=== PATIENT | female | born 1995 | race African-American/Black ===

== ENCOUNTER 2024-01-29 11:32 | Inpatient (IN) ==
[2024-01-29] MEDS ORDERED: OXYTOCIN 30 UNITS/NSS 30 UNITS/500 ML BAG IV PRN (11:37)
[2024-01-29] MEDS ORDERED: LIDOCAINE 1% LOCAL 20 ML VIAL INFIL PRN (11:37)
--- NOTE | 2024-01-29 11:43 | History & Physical Report ---
Date of Service January 29, 2024 Assessment & Plan (1) GDM (gestational diabetes mellitus), class A1: Plan: induction of labor planned Admission and Anticipated Discharge Date Admission Date: January 29, 2024 History of Present Illness Chief Complaint: induction of labor Primary Care Provider: GABRIELA PCP 28 F P0000 at 39 weeks admitted to L&D at [facility] for IOL for GDM diet controlled. GBS is negative. Allergies Allergy/AdvReac Type Severity Reaction Status Date / Time No Known Allergies Allergy Verified 01/29/24 11:50 Home Medications Medication Instructions Recorded Confirmed Type vit no.95-ferrous 1 tab PO DAILY 07/08/23 01/29/24 History fumarate 28 mg-folic acid 800 mcg tablet () Patient History Medical History (Updated 01/29/24 @ 11:48 by Ora Hernandez RN) Gestational diabetes mellitus diet controlled No known health problems Surgical History No history of previous surgery Social History (Updated 01/29/24 @ 11:50 by Ora Hernandez RN) Smoking Status: Never smoker Second Hand Exposure: No; Hx Alcohol Use: No Hx Substance Use: No Preferred Language: Citizen Of [place] 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 Beliefs That Will Affect Care: None marital status: marital status details: Atr Germain Current Living Situation: Family Current Living Situation Comment: lives with current occupational status: employed current occupation: [employer] Feels Safe at Home: Yes Safety Concerns: Feels Safe At This Time Assistive Devices: None 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 Review of Systems All systems reviewed & are unremarkable except as noted in HPI & below Physical Exam Constitutional: WD/WN, vitals as above Eyes: PERRL, conjunctivae normal, anicteric sclerae Respiratory: normal respiratory effort, lungs clear to auscultation Cardiovascular: Rate/Rhythm: regular rate and regular rhythm Gastrointestinal (Abdomen): Inspection/Auscultation: abdomen normal to inspection Musculoskeletal: Extremities: extremities normal to inspection Skin: no rashes, warm and dry Neurologic: patellar DTR's 2+ bilat, sensation intact Psychiatric: A+Ox3, euthymic affect Genitourinary: no vaginal lesions, no adnexal mass normal external appearance Manual OB Exam: + cervical dilation fingertip, + cervical effacement 30% and + station high OB Exam Monitor Tracing: + external FHT monitor used, + external uterine monitor used, + category I and + normal FHT variability Lymphatic: EFW 8 lbs. Cervidil placed vaginally Code Status & VTE Plan VTE Prophylaxis Plan VTE Prophylaxis will be ordered: No Monitoring External Monitor Cat 1
[2024-01-29 12:12] LABS: Hematocrit (blood only) 42.2 % (37.0-47.0); Hemoglobin 14.6 g/dl (12.0-16.0); Mean Corpuscular Hemoglobin 29.3 pg (25.0-34.0); Mean Corpuscular Hgb Conc 34.6 g/dL (32.0-36.0); Mean Corpuscular Volume 84.7 fL (80.0-100.0); Mean Platelet Volume 10.2 fL (9.4-12.4); Platelet Count 293 K/uL (130-400); RDW Coefficient of Variation 15.6 % (11.5-14.5); RDW Standard Deviation 48.1 fL (36.4-46.3); Red Blood Count 4.98 M/uL (4.20-5.40); White Blood Count 7.13 K/ul (4.8-10.8)
[2024-01-29 12:24] LABS: Albumin Globulin Ratio 1.2 (0.9-2); Albumin Level 3.7 gm/dl (3.4-5.0); BUN Creatinine Ratio 17.7 (10-20); Bilirubin Direct 0.1 mg/dl (0-0.2); Bilirubin,Total 0.2 mg/dl (0.2-1.0); Calcium 9.5 mg/dl (8.6-10.3); Creatinine Clr Calc Pharmacy 158.6 ml/min; Globulin 3.2 gm/dl (2.5-4.0); Potassium 3.9 mmol/L (3.5-5.1); Total Protein 6.9 gm/dl (6.0-8.3); Uric Acid 5.4 mg/dl (2.6-7.2)
[2024-01-29 12:24] LABS: Creatinine Urine Random 55.3 mg/dl; Protein Creatinine Ratio Urine 0.8 (0-0.2); Total Protein Urine Random 42.2 mg/dl (0-11.9)
[2024-01-29] MEDS: DINOPROSTONE 10 MG INSERT PV ONE (13:12)
--- OUTSIDE RECORDS SUMMARY | 2024-01-29 19:12 | External Medical Summary | Summary of Care ---
Author Name Unknown Organization [facility] Address [address] [place] [address] Phone [phone] Care Team Providers Care Global Safety Officer Name Role Phone Unavailable Primary Care Provider Unavailabl e Reason for Visit * Reason Comments DSMT Follow-Up Encounter Details Date Type Department Care Team (Latest Contact Info) Description 01/17/2024 9:30 AM EDT Nutrition Services Nutrition, [facility] [address] [facility] [place] [id number] Yesy Rogel RDN [address] [facility] [place] [address] Diet controlled gestational diabetes mellitus (GDM) in third trimester*; Supervision of high risk , antepartum Allergies No known active allergiesdocumented as of this encounter (statuses as of 01/17/2024) Medications Medication Sig Dispensed Refills Start Date End Date Status 6.75-0.2 MG Oral Tablet Take by mouth. Active SharethroughTouch Verio Flex System w/Device KitIndications:Diet controlled gestational diabetes mellitus (GDM) in third trimester Use to test blood sugars 4 times daily (fasting, 1 hour after breakfast, lunch, and dinner) 1 Kit 11/15/2023 Active OneTouch Delica Lancets 30GIndications:Diet controlled gestational diabetes mellitus (GDM) in third trimester Use to test blood sugars 4 times daily (fasting, 1 hour after breakfast, lunch, and dinner) 200 Each 6 11/15/2023 Active OneTouch Verio In Vitro Strip (Glucose Blood)Indications:Diet controlled gestational diabetes mellitus (GDM) in third trimester Use to test blood sugars 4 times daily (fasting, 1 hour after breakfast, lunch, and dinner) 125 Strip 6 01/10/2024 Active documented as of this encounter (statuses as of 01/17/2024) Active Problems Problem Noted Date Diagnosed Date Diet controlled gestational diabetes mellitus (GDM) in third trimester 11/14/2023 Overview: Diagnosed at 28 weeks Nutrition consult complete Lab Results Component Value Date/Time 50-G GESTATIONAL GLUCOSE, 1 HOUR - [facility] 165 (H) 11/08/2023 11:36 AM 100-G GESTATIONAL GLUCOSE, 1 HOUR - [facility] 171 11/14/2023 10:20 AM 100-G GESTATIONAL GLUCOSE, 2 HOUR - [facility] 156 (H) 11/14/2023 11:31 AM 100-G GESTATIONAL GLUCOSE, 3 HOUR - [facility] 114 11/14/2023 12:25 PM 100-G GESTATIONAL GLUCOSE, FASTING - [facility] 99 (H) 11/14/2023 09:16 AM 11/29/23: MFM ADAPT consult complete. Enrolled in Current Health. Instructions provided to report blood sugars each week for MFM review 12/06/[id number]-LWB-wmmmnmag 3 fasting blood sugars (1 elevated) and 4 post prandial values (1 elevated). Messaged to be consistent with testing four times daily and reporting. Review again next week 12/13/[id number]-pxbmfj 12/20/23: RPM reviewed; Stable 12/27/[id number]-VWA-gfbafn. Multiple missed readings. Sent message asking her to be consistent with testing and reporting 01/03/20241631-XEE-usrevk 01/10/[id number]-BSR-hzkmaruki via raquel and messaging. Stable. Last Assessment & Plan: Working with ADAPT. Please encourage Kaleigh to send sugars. Supervision of high risk , antepartum 0 07/19/2023 Estimated Date of Delivery Comme nts Yes 02/01/2024 Based on last me nstrual period of 04/27/2023 documented as of this encounter (statuses as of 01/17/2024) Immunizations Name Administration Dates Next Due TDAP, Age 7 and older, IM (Adacel) 11/08/2023 documented as of this encounter Social History Tobacco Use Types Packs/Day Years Used Date Smoking Tobacco: Never Smokeless Tobacco: Never Alcohol Use Standard Drinks/Week Comments Never 0 (1 standard drink = 0.6 oz pur e alcohol) Denver Depression Scale Answer Date Recorded [place] Depression Scale Total 6 07/19/2023 The thought of harming myself has occurred to me . Never 07/19/2023 Utilities Answer Date Recorded Do you have trouble paying y our heating, water, or electric bill? (Adult - for ages 18 years and over) Not on file 09/05/2023 Is your family able to pay t he heat, water, or electric bill? (Household - for ages 0-17 years) Not on file 09/05/2023 Does your family have access to good internet? (Household - for ages 0-17 years) Not on file 09/05/2023 Social Connections Answer Date Recorded How often do you feel lonely or isolated from those around you? (Adult - for ages 18 years and over) Not on file 09/05/2023 Estimated Date of Delivery Comme nts Yes 02/01/2024 Based on last me nstrual period of 04/27/2023 Sex and Gender Information Value Date Recorded Sex Assigned at Not on file Gender Identity Not on file Sexual Orientation Not on file Job Start Date Occupation Industry Not on file Not on file Not on file documented as of this encounter Last Filed Vital Signs Vital Sign Reading Time Taken Comments Blood Pressure - - Pulse - - Temperature - - Respiratory Rate - - Oxygen Saturation - - Inhaled Oxygen Concentration - - Weight 94.3 kg (208 lb) 01/17/2024 9:50 AM EDT p er pt report Height 170.2 cm (5' 7") 01/17/2024 9:50 AM EDT Body Mass Index 32.58 01/17/2024 9:50 AM EDT documented in this encounter Patient Instructions * Patient Instructions* Yesy Rogel RDN - 01/17/2024 9:52 AM EDT Participant will continue with present meal regimen including an evening snack. Try to consume Congolese yogurt after checking fasting glucose level, ~ 7-7:30 AM to follow 10-hour rule between evening snack and breakfast the next morning. documented in this encounter Progress Notes * Yesy Rogel, CASSIDYN - 01/17/2024 9:33 AM EDT DIABETES SELF-MANAGEMENT TRAINING/FOLLOW UP NOTE Name: Kaleigh Chacon Date: 01/17/2024 Participant was seen face to face in the clinic. Last order of DIABETES MANAGEMENT EDUCATION (ADA) REFERRAL was found on 11/15/2023 from Telephone on11/14/2023 No order of CLINICAL NUTRITION AND DIABETES EDUCATION ANNUAL RENEWAL is found. No order of PEDIATRIC DIABETES MANAGEMENT EDUCATION (ADA) REFERRAL OP is found. ADA referral in place? Yes Participant scheduled for 1:1 training due to lack of classes scheduled within 2 months of appointment. What diabetes concerns and/or barriers to care would you like to discuss in your appointment: complains of sore fingers and wants to know how long she should continue checking Topics from last visit to attempt to cover today: none Was behavior objective from last visit met at least 80% of the time: Nutrition: Yes Diabetes Medications: None Monitoring blood glucose, interpreting and using results Fasting 85, 87 when getting up early 91, 95 After breakfast 103, 115 After lunch 130, 120+ After dinner 79, 115, 107, 106 Self-Monitoring Blood Glucose Source of Information: Participant verbally reviewed from memory Frequency of tests: 4 times daily Fasting 85, 87 when getting up early 91, 95 After breakfast 103, 115 After lunch 130, 120+ After dinner 79, 115, 107, 106 Hypoglycemia?: No Diet: Before breakfast: 7:30- 8 AM Congolese yogurt Breakfast: 10 AM miranda, scrambled egg with vegetables sometimes, tea with milk Snacks: Congolese yogurt Lunch: 3:30 PM yam, spinach stew or rice with vegetables and boiled egg and chicken, water Snacks: high-protein biscuit or Congolese yogurt Dinner: 8-10 PM peanut butter soup with fufu (dough), or fufu with chicken soup with vegetables-onions, peppers, tomatoes, water Snacks: none Drinks: water-plenty per participant and Restaurant meals: rare Alcohol: None Tobacco Use: No Weight management review: Wt Readings from Last 6 Encounters: 01/17/24 94.3 kg (208 lb) 01/10/24 93.9 kg (207 lb) 12/27/23 92.5 kg (204 lb) 12/13/23 92.8 kg (204 lb 9.6 oz) 11/24/23 92.1 kg (203 lb 1.6 oz) 11/23/23 93 kg (205 lb) Weight changes since last visit: increased 5 lbs since last visit (11/24/2023) Physical Activity: Active at work-lifting, walking. Participant states she will stop working tomorrow. ADA STANDARDS OF CARE/BUNDLE MEASURES Diabetes Bundle / Standards of Care: Gestational Diabetes Participant Therapy Management Plan: Hypertension: BP Readings from Last 3 Encounters: 01/17/24 120/72 01/10/24 132/82 12/27/23 128/78 Gestational Diabetes Participant, being monitored by LOG CUTTER. Dyslipidemia: No results found for: "LDL" No components found for: "[id number]" Gestational Diabetes Mellitus Participant Kidney function review: Lab Results Component Value Date/Time ESTIMATED GLOMERULAR FILTRATION RATE - WILFREDO >90 01/03/2023 08:45 AM No results found for: "ALBUMIN / CREATININE RATIO", "ALBUMIN / CREATININE RATIO, URINE - [facility]" No results found for: "PROTEIN/ CREATININE RATIO", "PROTEIN/ CREATININE RATIO, URINE - [facility]" Gestational Diabetes Mellitus Participant DSMT/Diabetes MNT Diagnosis: Inconsistent carbohydrate intake related to lack of evening snack most days as evidenced by dietaryrecall DSMT Follow-up Assessment of Content Areas: Choose the answer that represents the participant's competency in ONLY topics assessed from previous visit and addressed today. Areas taught today must correlate with intervention. If content area not assessed and/or intervened today, it will be deferred to future session. Incorporating nutrition management into lifestyle: Needs review (2) Incorporating physical activity into lifestyle: Needs review (2) Monitoring blood glucose, interpreting and using results: Comprehends zarco points (3) Prevention, detection, and treatment of chronic complications: Needs review (2) DSMT/ Diabetes MNT intervention: Nutrition: Reminded participant of need for eating consistent carb's throughout the day . Reminded her of need for following 8-10 hour rule between evening snack and breakfast the next day. Encouraged her to push back pre-breakfast snack a little and aim for evening meal no earlier than 9 PM. She notes she has been monitoring portion sizes of high-carb foods and eating small portions of fufu (dough) and eating mostly protein-based soup at meals. Physical Activity: Reminded participant of benefit of activity on glucose levels, especially post prandial levels. Monitoring: Participant asking how much longer she has to check glucose levels. Encouraged her to continue until she delivers. She notes some pain in her fingers with checking. Encouraged her to use the side of her fingers and rotate fingers when checking; states she has been following these strategies. She has been forwarding her results to [facility]. States she notes that her glucose levels are higher when working due to being busy and experiencing stress. She admits to occasionally missing after lunch glucose check. Reviewed recommendations for after meal glucose levels, 1 hour and 2 hours. Suggested that if she misses her 1 hour glucose check, she can do a 2 hour check. Chronic Complications: Reminded participant of need for recommendations to ensure the health of abeba. Encouragement provided. Participant Selected Behavioral Objective: Nutrition: To improve blood glucose control I will continue with present meal regimen including an evening snack. Try to consume Congolese yogurt after checking fasting glucose level, ~ 7-7:30 AM to follow 10-hour rule between evening snack and breakfast the next morning. Recommended Medication Changes: No changes. Education materials given to participant/caregiver and reviewed during today's visit: None given today Diabetes Self-Management Support: Apps/Smart Phone Technology: Current Health Possible Future Topics: Content areas that were not assessed in prior visits: All content areas have been assessed. Time Spent With Patient: Time in: 9:32 AM Time out: 9:53 AM Billing: MNT: 15 Minutes (8-22) Plan for Return: Participant declined another follow-up visit. Encouraged pt to contact me via My Gif any questions or concerns arise. All [facility] providers within the system are able to see [place] [employer] education and outcomes within the participant's electronic medical record. Yesy Rogel RDN, NUTRITION SERVICES [facility] Diabetes Care and Ship'S Master documented in this encounter Plan of Treatment Upcoming Encounters Date Type Department Care Team (Late st Contact Info) Description 01/25/2024 10:30 AM EST Office Visit Gynecology/Obstetrics [facility] [address] [place] [phone] Casandra Rogers PA-Manuela [address] [place] [address] [place] [phone] Health Maintenance Due Date Last Done Comments Depression Screening 2006 Hepatitis B Vaccine (1 of 3 - 19+ 3-dose series) 2013 COVID-19 Vaccine (1 - 2023-2 5 season) 2023 Influenza Vaccine (FLU shot) (#1) 2023 Pap Smear 07/18/2026 07/19/2023 DTap/Tdap Vaccines (2 - Td o r Tdap) 11/07/2033 11/08/2023 HPV (Gardasil) Vaccine Aged Out No lo nger eligible based on patient's age to complete this topic MENINGOCOCCAL (MENACTRA/MENVEO) Aged Out No longer eligible based on patient's age to complete this topic Pneumococcal Vaccine: Pediat rics (0 to 5 Years) and At-Risk Patients (6 to 64 Years) Aged Out No longer eligi ble based on patient's age to complete this topic documented as of this encounter Medical Devices Not on filedocumented as of this encounter Visit Diagnoses Diagnosis Diet controlled gestational diabetes mellitus (GDM) in third trimester- Primary Supervision of high risk , antepartum documented in this encounter
--- OUTSIDE RECORDS SUMMARY | 2024-01-29 19:12 | External Medical Summary | Summary of Care ---
Author Name Unknown Organization [facility] Address [address] [place] [address] Phone [phone] Care Team Providers Care Director Of Sports Performance Name Role Phone Unavailable Primary Care Provider Unavailabl e Encounter Details Date Type Department Care Team (Late st Contact Info) Description 01/26/2024 Telephone It Teacher Obstetrics Maternal Medicine, [place] [address], [place] [phone] [place], Nurse It Teacher [facility] [address] [place] [phone] Allergies No known active allergiesdocumented as of this encounter (statuses as of 01/26/2024) Medications 6.75-0.2 MG Oral Tablet Take by mouth. Active OneTouch Verio Flex System w/Device KitIndications:D iet controlled gestational diabetes mellitus (GDM) in third trimester Use to test blood sugars 4 times daily (fasting, 1 hour after breakfast, lunch, and dinner) 1 Kit 11/15/2023 Active Reach ProsTouch DelNPS Lancets 30GIndications:D iet controlled gestational diabetes mellitus (GDM) in third trimester Use to test blood sugars 4 times daily (fasting, 1 hour after breakfast, lunch, and dinner) 200 Each 6 11/15/2023 Active Reach ProsTouch Verio In Vitro Strip (Glucose Blood)Indication s:Diet controlled gestational diabetes mellitus (GDM) in third trimester Use to test blood sugars 4 times daily (fasting, 1 hour after breakfast, lunch, and dinner) 125 Strip 6 01/10/2024 Active documented as of this encounter (statuses as of 01/26/2024) Active Problems Problem Noted Date Diagnosed Date Diet controlled gestational diabetes mellitus (GDM) in third trimester 11/14/2023 Overview (01/24/2024): Diagnosed at 28 weeks Nutrition consult complete [...] blood sugars each week for MFM review 12/06/[id number]-DPY-tjpghxwl 3 fasting blood sugars (1 elevated) and 4 post prandial values (1 elevated). Messaged to be consistent with testing four times daily and reporting. Review again next week 12/13/20231293-VCC-fjjlbi 12/20/23: RPM reviewed; Stable 12/27/20231814-CNE-vjlvci. Multiple missed readings. Sent message asking her to be consistent with testing and reporting 01/03/20247538-ONB-tflxxs 01/10/[id number]-NHU-lpsvahhxh via raquel and messaging. Stable. 01/17/[id number]-FFY-cpijdnnzj via raquel and messaging. Overall stable (rare elevation) 01/24/[id number]-PTD-hnboxlmk fasting blood sugars. Maternal medicine nurse practitioners to review 01/24/24: RPM reviewed; noted as above. Recommend bedtime snack and fasting no longer than 8-10 hour overnight. Will continue to monitor. May need bedtime insulin next week. Msg sent to [facility] to schedule adapt visit for sometime later next week to review FBS. Assessment & Plan (12/29/2023 12:11 PM EDT): Working with [facility]APT. Please encourage Kaleigh to send sugars. Assessment & Plan (11/29/2023 1:46 PM EDT): CONSIDERATIONS: Reviewed etiology and risks associated with gestational diabetes mellitus (GDM), including risks to , fetus, and maternal progression to Type 2 DM. Instructed on proper use of glucometer; supplies ordered, if indicated. Advised that life-long screening for diabetes is recommended every 1-3 years. RECOMMENDATIONS: Recommend monitoring blood sugars with daily fasting blood sugar (maintained at less than or equal to 95) and 1 hour postprandial measurements (maintained at less than or equal to 140). Medications should be adjusted to maintain these target values. Report levels to MFM (Maternal- Medicine) weekly. Recommend nutrition consult with RDN (Registered Dietitian Income Tax Adjuster). Lifestyle changes are also indicated including optimizing gestational weight gain and physical activity of 30 minutes per day, if not otherwise contraindicated in . Insulin is preferred if medications are indicated to optimize euglycemia. Metformin (preferred over glyburide) may also be used in some circumstances. Reviewed the risks and benefits of each. Recommend ultrasound, surveillance and delivery as follows: A1GDM, delivery should be accomplished by 41w0d. A2GDM, recommend growth assessment with MFM every 4 weeks, initiate surveillance with twice weekly NSTs at 32 weeks and continue until delivery at 39 weeks. Recommend intrapartum monitoring every 1-2 hours (A2GDM) or every 4 hours (A1GDM) and treat with insulin if indicated. Recommend 2-hour glucose tolerance testing with 75-gram glucose load during admission (or 6-8 weeks if not completed). Supervision of high risk , antepartum 0 07/19/2023 Estimated Date of Delivery Comme nts Yes 02/01/2024 Based on last me nstrual period of 04/27/2023 documented as of this encounter (statuses as of 01/26/2024) Immunizations Name Administration Dates Next Due TDAP, Age 7 and older, IM (Adacel) 11/08/2023 documented as of this encounter Social History Tobacco Use Types Packs/Day Years Used Date Smoking Tobacco: Never Smokeless Tobacco: Never Alcohol Use Standard Drinks/Week Comments Never 0 (1 standard drink = 0.6 oz pur e alcohol) [place] Depression Scale Answer Date Recorded [place] Depression Scale Total 6 07/19/2023 The thought [...] Recorded Sex Assigned at Not on file Legal Sex Female 10:20 PM EDT Gender Identity Not on file Sexual Orientation Not on file documented as of this encounter Miscellaneous Notes * Telephone Encounter - Annette Gibson OSA - 01/26/2024 9:48 AM EST Phone call from pt. Stated she didn't need the appt. She is being induced on Monday. * Telephone Encounter - Annette Gibson OSA - 01/26/2024 9:48 AM EST ----- Message from Swathi Centeno sent at 01/24/2024 9:40 AM EST ----- Regarding: Plz schedule ADAPT Please schedule patient for 30 minute adapt visit sometime later next week to review blood sugars. Elham Leonard documented in this encounter Plan of Treatment Upcoming Encounters Date Type Department Care Team (Late st Contact Info) Description 01/29/2024 10:30 AM EST Telemedicine It Teacher Obstetrics Maternal Medicine Josy, Kenji Jin [facility] [place] [phone] Moises Lopez CRNP [address] [address] Health Maintenance Due Date Last Done Comments Depression Screening 2006 Hepatitis B Vaccine (1 of 3 - 19+ 3-dose series) 2013 COVID-19 Vaccine ( - 2023-2 5 season) 2023 Influenza Vaccine [...]
--- OUTSIDE RECORDS SUMMARY | 2024-01-29 19:12 | External Medical Summary | Summary of Care ---
Author Name Unknown Organization [facility] Address [address] [place] [address] Phone [phone] Care Team Providers Care Town Marshal Name Role Phone Unavailable Primary Care Provider Unavailabl e Encounter Details Date Type Department Care Team (Late st Contact Info) Description 01/26/2024 Telephone Jetting Machine Operator Obstetrics Maternal Medicine, [place] [address], [place] [id number] [place], Nurse Jetting Machine Operator [facility] [address] [phone] Allergies No known active allergiesdocumented as of this encounter (statuses as of 01/26/2024) Medications 6.75-0.2 MG Oral Tablet Take by mouth. Active OneTouch Verio Flex System w/Device KitIndications:D iet controlled gestational diabetes mellitus (GDM) in third trimester Use to test blood sugars 4 times daily (fasting, 1 hour after breakfast, lunch, and dinner) 1 Kit 11/15/2023 Active GydgetTouch [employer] Lancets 30GIndications:D iet controlled gestational diabetes mellitus (GDM) in third trimester Use to test blood sugars 4 times daily (fasting, 1 hour after breakfast, lunch, and dinner) 200 Each 6 11/15/2023 Active GydgetTouch Verio In Vitro Strip (Glucose Blood)Indication s:Diet [...] blood sugars each week for MFM review 12/06/20235764-SKG-jlsrducw 3 fasting blood sugars (1 elevated) and 4 post prandial values (1 elevated). Messaged to be consistent with testing four times daily and reporting. Review again next week 12/13/[id number]-EWX-hakiwq 12/20/23: RPM reviewed; Stable 12/27/[id number]-GSP-ukohtu. Multiple missed readings. Sent message asking her to be consistent with testing and reporting 01/03/20245370-EFP-borrgw 01/10/20249170-LRS-alzljlepc via raquel and messaging. Stable. 01/17/[id number]-BMY-acwcldkzg via raquel and messaging. Overall stable (rare elevation) 01/24/20246390-BED-wphdxbjt fasting blood sugars. Maternal medicine nurse practitioners to review 01/24/24: RPM reviewed; noted as above. Recommend bedtime snack and fasting no longer than 8-10 hour overnight. Will continue to monitor. May need bedtime insulin next week. Msg sent to [facility] to [place] adapt visit [...] Recommend nutrition consult with RDN (Registered Dietitian Pre Coder). Lifestyle changes are also indicated including optimizing [...] drink = 0.6 oz pur e alcohol) [place] Depression Scale Answer Date Recorded [place] Depression Scale Total 6 07/19/2023 The thought [...] Encounter - Annette Gibson OSA - 01/26/2024 9:36 AM EST Phone call to patient. Left message on [employer]'s voice mail. Encouraged patient to return call [facility] to assist with scheduling. * Telephone Encounter - Annette Gibson OSA - 01/26/2024 9:36 AM EST ----- Message from Swathi Centeno sent at 01/24/2024 9:40 AM EST ----- Regarding: Plz schedule ADAPT Please schedule patient for 30 minute adapt visit sometime later next week to review blood sugars. Elham Leonard documented in this encounter Plan of Treatment Upcoming Encounters Date Type Department Care Team (Late st Contact Info) Description 01/29/2024 10:30 AM EST Telemedicine Jetting Machine Operator Obstetrics Maternal Medicine VMJosy, Kenji Jin [facility] [place] [phone] Moises Lopez CRNP [address] [address] [place] [address] Health Maintenance Due Date Last Done Comments [...]
--- OUTSIDE RECORDS SUMMARY | 2024-01-29 19:12 | External Medical Summary | Summary of Care ---
Author Name Unknown Organization [facility] Address [address] [place] [address] Phone [phone] Care Team Providers Care Ingot Car Operator Name Role Phone Unavailable Primary Care Provider Unavailabl e Reason for Visit * Reason Comments Return Visit Encounter Details Date Type Department Care Team (Late st Contact Info) Description 01/25/2024 10:30 AM EST Office Visit Gynecology/Obstetric s [facility]av[facility] [address] [place] [address] Casandra Rogers PA-C [address] [place] [phone] Supervision of high risk , antepartum*; Diet controlled gestational diabetes mellitus (GDM) in third trimester Allergies No known active allergiesdocumented as of this encounter (statuses as of 01/25/2024) Medications Medication Sig Dispensed Refills Start Date End Date Status 6.75-0.2 MG Oral Tablet Take by mouth. Active EmidaTouch Verio Flex System w/Device KitIndications:Diet controlled gestational [...] as of this encounter (statuses as of 01/25/2024) Active Problems Problem Noted Date Diagnosed Date [...] blood sugars each week for MFM review 12/06/20234184-XLV-pjnylwjy 3 fasting blood sugars (1 elevated) and 4 post prandial values (1 elevated). Messaged to be consistent with testing four times daily and reporting. Review again next week 12/13/20233555-QZI-baldze 12/20/23: RPM reviewed; Stable 12/27/20234826-VXT-tuezpt. Multiple missed readings. Sent message asking her to be consistent with testing and reporting 01/03/20243487-WJJ-yedeje 01/10/20240357-YXR-ajjertoqa via raquel and messaging. Stable. 01/17/[id number]-NQJ-jxaveasmh via raquel and messaging. Overall stable (rare elevation) 01/24/20242111-FBN-fsmtyivw fasting blood sugars. Maternal medicine nurse practitioners to review 01/24/24: RPM reviewed; noted as above. Recommend bedtime snack and fasting no longer than 8-10 hour overnight. Will continue to monitor. May need bedtime insulin next week. Msg sent to [facility] to schedule adapt visit for sometime later next week to review FBS. Last Assessment & Plan: Working with ADAPT. Please encourage Kaleigh to send sugars. Supervision of high risk , antepartum 0 07/19/2023 Estimated Date of Delivery Comme nts Yes 02/01/2024 Based on last me nstrual period of 04/27/2023 documented as of this encounter (statuses as of 01/25/2024) Immunizations Name Administration Dates Next Due TDAP, Age 7 and older, IM (Adacel) 11/08/2023 documented as of this encounter Social History Tobacco Use Types Packs/Day Years Used Date Smoking Tobacco: Never Smokeless Tobacco: Never Alcohol Use Standard Drinks/Week Comments Never 0 (1 standard drink = 0.6 oz pur e alcohol) [place] Depression Scale Answer Date Recorded [place] Depression Scale Total 6 07/19/2023 The thought [...] Sign Reading Time Taken Comments Blood Pressure 130/88 01/25/2024 10:42 AM EST Pulse - - Temperature - - Respiratory Rate - - Oxygen Saturation - - Inhaled Oxygen Concentration - - Weight 95.5 kg (210 lb 9.6 oz) 01/25/2024 10:42 AM EST Height - - Body Mass Index 32.98 01/17/2024 9:50 AM EDT documented in this encounter Progress Notes * Casandra Rogers PA-C - 01/25/2024 11:13 AM EST Kaleigh Chacon is a 28 year old female here for her routine OB appointment at 39w0d Her Estimated Date of Delivery: 02/01/24 REVIEW OF SYSTEMS She affirms movement. Denies vaginal bleeding, LOF, contractions, N/V, headaches, vision changes. Patient is uncomfortable at today's visit. Reporting contractions and back pain that are increasingin intensity. Contractions are not timeable or regular. States they come and go, but are intense when they occur. PHYSICAL EXAM Filed Vitals: 01/25/24 1042 BP: 130/88 Weight: 95.5 kg (210 lb 9.6 oz) +FHT 140s Fundal height 39 cm Position cephalic CE: closed/thick/high Private Detective Documentation Patient offered security associate and accepted. Name of security associate: Stacie Rodriguez CMA. ASSESSMENT/PLAN Supervision of high risk , antepartum (Primary) Diet controlled gestational diabetes mellitus (GDM) in third trimester - Discussed with patient MFM recommendation for delivery by 41w0d secondary to GDMA1. - Call to L&D with availability Sunday 01/28 at 39w4d or 01/31 at 41w0d. To schedule for Monday's IOL date to stay below MFM recommendation. Patient is agreeable to plan. Instructions given. Supervision of - labor precautions and kick counts reviewed RTO in 1 week Casandra Rogers PA-C 01/25/2024 * Stacie Rodriguez CMA - 01/25/2024 10:42 AM EST 39w0d Sharp back pain and abdominal pain. Possible contractions. Requesting cervical check. documented in this encounter Plan of Treatment Upcoming Encounters Date Type Department Care Team (Late st Contact Info) Description 01/29/2024 10:30 AM EST Telemedicine Violin Mechanic Obstetrics Maternal Medicine Kenji SCOTT [address] [facility] [place] [phone] Moises Lopez CRNP [address] [address] [place] [address] Health Maintenance Due Date Last Done Comments [...] as of this encounter Visit Diagnoses Diagnosis Supervision of high risk , antepartum- Primary Diet controlled gestational diabetes mellitus (GDM) in third trimester documented in this encounter
--- OUTSIDE RECORDS SUMMARY | 2024-01-29 19:12 | External Medical Summary | Summary of Care ---
Author Name Unknown Organization [facility] Address [address] [place] [address] Phone [phone] Care Team Providers Care Driller'S Assistant Name Role Phone Unavailable Primary Care Provider Unavailabl e Reason for Visit * Reason Onset Date Comments Appointment 01/24/2024 Encounter Details Date Type Department Care Team (Late st Contact Info) Description 01/24/2024 Telephone Shank Cutter Obstetrics Maternal Medicine, [place] [address], [place] [phone] [place], Nurse Shank Cutter [facility] [address] [place] [address] Appointment Allergies No known active allergiesdocumented as of this encounter (statuses as of 01/24/2024) Medications Medication Sig Dispensed Refills Start Date End Date Status 6.75-0.2 MG Oral Tablet Take by mouth. Active Lux BiosciencesTouch Verio Flex System w/Device KitIndications:Diet controlled gestational diabetes mellitus (GDM) in third trimester Use to test blood sugars 4 times daily (fasting, 1 hour after breakfast, lunch, and dinner) 1 Kit 11/15/2023 Active Lux BiosciencesTouch Delica Lancets 30GIndications:Diet controlled gestational diabetes mellitus (GDM) in third trimester Use to test blood sugars 4 times daily (fasting, 1 hour after breakfast, lunch, and dinner) 200 Each 6 11/15/2023 Active Lux BiosciencesTouch Verio In Vitro Strip (Glucose Blood)Indications:Diet controlled gestational diabetes mellitus (GDM) in third trimester Use to test blood sugars 4 times daily (fasting, 1 hour after breakfast, lunch, and dinner) 125 Strip 6 01/10/2024 Active documented as of this encounter (statuses as of 01/24/2024) Active Problems Problem Noted Date Diagnosed Date [...] blood sugars each week for MFM review 12/06/20235253-DJN-kkdawtyn 3 fasting blood sugars (1 elevated) and 4 post prandial values (1 elevated). Messaged to be consistent with testing four times daily and reporting. Review again next week 12/13/[id number]-FGO-tjzndx 12/20/23: RPM reviewed; Stable 12/27/20237176-FVG-bakjyw. Multiple missed readings. Sent message asking her to be consistent with testing and reporting 01/03/20246641-ZRY-revpkx 01/10/20243534-EJW-cbbegfasc via raquel and messaging. Stable. 01/17/[id number]-WXH-pdrpovzqh via raquel and messaging. Overall stable (rare elevation) 01/24/20246381-LJD-uekeisxi fasting blood sugars. Maternal medicine nurse practitioners to review 01/24/24: RPM reviewed; noted as above. Recommend bedtime snack and fasting no longer than 8-10 hour overnight. Will continue to monitor. May need bedtime insulin next week. Msg sent to [facility] to schedule adapt visit for sometime later next week to review FBS. Last Assessment & Plan: Working with ADAPT. Please encourage Kaleigh to send sugars. Supervision of high risk , antepartum 0 07/19/2023 Estimated Date of Delivery Comme nts Yes 02/01/2024 Based on last me nstrual period of 04/27/2023 documented as of this encounter (statuses as of 01/24/2024) Immunizations Name Administration Dates Next Due TDAP, Age 7 and older, IM (Adacel) 11/08/2023 documented as of this encounter Social History Tobacco Use Types Packs/Day Years Used Date Smoking Tobacco: Never Smokeless Tobacco: Never Alcohol Use Standard Drinks/Week Comments Never 0 (1 standard drink = 0.6 oz pur e alcohol) [place] Depression Scale Answer Date Recorded [place] Depression Scale Total 6 07/19/2023 The thought [...] encounter Miscellaneous Notes * Telephone Encounter - Madeline Toure OSA - 01/24/2024 10:01 AM EST Phone call to patient. Left message on [employer]'s voice mail. Encouraged patient to return call [phone] to assist with scheduling. documented in this encounter Plan of Treatment Upcoming Encounters Date Type Department Care Team (Late st Contact Info) Description 01/25/2024 10:30 AM EST Office Visit Gynecology/Obstetrics [facility] [address] [place] [phone] Casandra Rogers PA-C [address] [place] [address] Health Maintenance Due Date Last Done Comments [...]
--- OUTSIDE RECORDS SUMMARY | 2024-01-29 19:12 | External Medical Summary | Summary of Care ---
Author Name Unknown Organization [facility] Address [address] [place] [address] Phone [phone] Care Team Providers Care Vigoureux Printer Name Role Phone Unavailable Primary Care Provider Unavailabl e Reason for Visit * Reason Comments Return Visit Encounter Details Date Type Department Care Team (Late st Contact Info) Description 01/17/2024 8:45 AM EDT Office Visit Gynecology/Obstetric s Hashoshana Tejada [address] [place] [phone] Stephen Mclaughlin MD [address] [place] [phone] Supervision of high risk , antepartum*; Diet controlled gestational diabetes mellitus (GDM) in third trimester Allergies No known active allergiesdocumented as of this encounter (statuses as of 01/17/2024) Medications Medication Sig Dispensed Refills Start Date End Date Status 6.75-0.2 MG Oral Tablet Take by mouth. Active OneTouch Verio Flex System w/Device KitIndications:Diet controlled gestational [...] blood sugars each week for MFM review 12/06/20239184-YKR-rzrlmugm 3 fasting blood sugars (1 elevated) and 4 post prandial values (1 elevated). Messaged to be consistent with testing four times daily and reporting. Review again next week 12/13/20234709-YCL-ooxwai 12/20/23: RPM reviewed; Stable 12/27/20237018-DCL-dmtvff. Multiple missed readings. Sent message asking her to be consistent with testing and reporting 01/03/20246011-AAD-kvbdut 01/10/20247484-XSZ-ikmuujgta via raquel and messaging. Stable. 01/17/20244580-JVK-fafsnzput via raquel and messaging. Overall stable (rare elevation) Last Assessment & Plan: Working with ADAPT. [...] drink = 0.6 oz pur e alcohol) [place] Depression Scale Answer Date Recorded [place] Depression Scale Total 6 07/19/2023 The thought [...] Sign Reading Time Taken Comments Blood Pressure 120/72 01/17/2024 8:54 AM EDT Pulse - - Temperature - - Respiratory Rate - - Oxygen Saturation - - Inhaled Oxygen Concentration - - Weight - - Height - - Body Mass Index - - documented in this encounter Progress Notes * Stephen Mclaughlin MD - 01/17/2024 9:13 AM EDT Pt doing well GDMA1 on Diet FS and 1PP are below 90 and 140 respectively Discussed labor signs and symptoms * Randa Mujica LPN - 01/17/2024 8:54 AM EDT 37w6d documented in this encounter Plan of Treatment Upcoming Encounters Date Type Department Care Team (Late st Contact Info) Description 01/25/2024 10:30 AM EST Office Visit Gynecology/Obstetrics [facility] [address] [place] [address] Casandra Rogers PA-Manuela [address] [place] [address] [place] [address] Health Maintenance Due Date Last Done Comments [...]
--- OUTSIDE RECORDS SUMMARY | 2024-01-29 19:13 | External Medical Summary | Summary of Care ---
Author Name Unknown Organization [facility] Address [address] [place] [address] Phone [phone] Care Team Providers Care Campground Hand Name Role Phone Unavailable Primary Care Provider Unavailabl e Encounter Details Date Type Department Care Team (Late st Contact Info) Description 12/28/2023 9:30 AM EDT Office Visit Sheet Metal Foreman Obstetrics Maternal Medicine, [address] [address] Jaz Grace, DO [address] [place] [address] Diet controlled gestational diabetes mellitus (GDM) in third trimester*; Ultrasound for screening for growth restriction; 35 weeks gestation of Allergies No known active allergiesdocumented as of this encounter (statuses as of 12/29/2023) Medications Medication Sig Dispensed Refills Start Date End Date Status 6.75-0.2 MG Oral Tablet Take by mouth. Active [employer] Verio Flex System w/Device KitIndications:Diet controlled gestational diabetes mellitus (GDM) in third trimester Use to test blood sugars 4 times daily (fasting, 1 hour after breakfast, lunch, and dinner) 1 Kit 11/15/2023 Active [employer] In Vitro Strip (Glucose Blood)Indications:Diet controlled gestational diabetes mellitus (GDM) in third trimester Use to test blood sugars 4 times daily (fasting, 1 hour after breakfast, lunch, and dinner) 125 Strip 6 11/15/2023 Active VupenTouch Delica Lancets 30GIndications:Diet controlled gestational diabetes mellitus (GDM) in third trimester Use to test blood sugars 4 times daily (fasting, 1 hour after breakfast, lunch, and dinner) 200 Each 6 11/15/2023 Active documented as of this encounter (statuses as of 12/29/2023) Active Problems Problem Noted Date Diagnosed Date [...] blood sugars each week for MFM review 12/06/20231995-GXD-mtzdlsqy 3 fasting blood sugars (1 elevated) and 4 post prandial values (1 elevated). Messaged to be consistent with testing four times daily and reporting. Review again next week 12/13/20230908-UQC-qmyrft 12/20/23: RPM reviewed; Stable 12/27/20239154-RKX-swvrhh. Multiple missed readings. Sent message asking her to be consistent with testing and reporting Last Assessment & Plan: Working with ADAPT. Please encourage Kaleigh to send sugars. Supervision of high risk , antepartum 0 07/19/2023 Estimated Date of Delivery Comme nts Yes 02/01/2024 Based on last me nstrual period of 04/27/2023 documented as of this encounter (statuses as of 12/29/2023) Immunizations Name Administration Dates Next Due TDAP, Age 7 and older, IM (Adacel) 11/08/2023 documented as of this encounter Social History Tobacco Use Types Packs/Day Years Used Date Smoking Tobacco: Never Smokeless Tobacco: Never Alcohol Use Standard Drinks/Week Comments Never 0 (1 standard drink = 0.6 oz pur e alcohol) [place] Depression Scale Answer Date Recorded [place] Depression Scale Total 6 07/19/2023 The thought [...] on file documented as of this encounter Progress Notes * Jaz Grace DO - 12/29/2023 12:11 PM EDT Kaleigh presented today at 35w1d for an ultrasound for the following indications: Diet controlled gestational diabetes mellitus (GDM) in third trimester Assessment & Plan: Working with ADAPT. Please encourage Kaleigh to send sugars. Ultrasound for screening for growth restriction 35 weeks gestation of Ultrasound summary: Patient presented at 35w 0d for growth assessment. Normal growth with EFW 2234 g at 15%ile. Normal YVONNE at 13.1 cm. Cephalic presentation. I reviewed the ultrasound images. Kaleigh was given the opportunity to meet with me if she had any questions. Please refer to the ultrasound report for additional details about today's ultrasound examination. RECOMMENDATIONS: Follow up with MFM for ultrasound as clinically indicated. See prior formal MFM consultation note. Thank you for allowing us to participate in the care of this patient. Please call with any questions. Jaz Grace DO 12/29/2023 12:11 PM documented in this encounter Miscellaneous Notes * Assessment & Plan Note - Jaz Grace DO - 12/29/2023 12:11 PM EDT Associated Problem(s): Diet controlled gestational diabetes mellitus (GDM) in third trimester Working with ADAPT. Please encourage Kaleigh to send sugars. documented in this encounter Plan of Treatment Upcoming Encounters Date Type Department Care Team (Late st Contact Info) Description 01/10/2024 2:15 PM EDT Office Visit Gynecology/Obstetrics [facility] [address] [place] [phone] Nancy Girard CRNP [address] [place] [phone] 01/17/2024 9:30 AM EDT [facility] [address] [place] [address] Yesy Rogel RDN [address] [place] [address] Health Maintenance Due Date Last Done Comments [...] diabetes mellitus (GDM) in third trimester- Primary Ultrasound for screening for growth restriction screening for growth retardation using ultrasonics 35 weeks gestation of state, incidental documented in this encounter
--- OUTSIDE RECORDS SUMMARY | 2024-01-29 19:13 | External Medical Summary | Summary of Care ---
Author Name Unknown Organization [facility] Address [address] [facility] [place] [address] Phone [phone] Care Team Providers Care Locator Name Role Phone Unavailable Primary Care Provider Unavailabl e Reason for Visit * Reason Comments Return Visit Encounter Details Date Type Department Care Team (Late st Contact Info) Description 12/13/2023 2:00 PM EDT Office Visit Gynecology/Obstetric s Flavio Tejada [address] [place] [id number] Nancy Girard CRNP [address] [place] [id number] Supervision of high risk , antepartum*; Diet controlled gestational diabetes mellitus (GDM) in third trimester Allergies No known active allergiesdocumented as of this encounter (statuses as of 12/13/2023) Medications Medication Sig Dispensed Refills Start Date End Date Status 6.75-0.2 MG Oral Tablet Take by mouth. Active [employer] Verio Flex System w/Device KitIndications:Diet controlled gestational diabetes mellitus (GDM) in third trimester Use to test blood sugars 4 times daily (fasting, 1 hour after breakfast, lunch, and dinner) 1 Kit 11/15/2023 Active [employer] Verio In Vitro Strip (Glucose Blood)Indications:Diet controlled gestational diabetes mellitus (GDM) in third trimester Use to test blood sugars 4 times daily (fasting, 1 hour after breakfast, lunch, and dinner) 125 Strip 6 11/15/2023 Active [employer] Delica Lancets 30GIndications:Diet controlled gestational diabetes mellitus (GDM) in third trimester Use to test blood sugars 4 times daily (fasting, 1 hour after breakfast, lunch, and dinner) 200 Each 6 11/15/2023 Active documented as of this encounter (statuses as of 12/13/2023) Active Problems Problem Noted Date Diagnosed Date [...] blood sugars each week for MFM review 12/06/20237512-[id number] 3 fasting blood sugars (1 elevated) and 4 post prandial values (1 elevated). Messaged to be consistent with testing four times daily and reporting. Review again next week 12/13/20235600-SFA-lxuonu Last Assessment & Plan: CONSIDERATIONS: Reviewed etiology and risks associated with [...] Recommend nutrition consult with RDN (Registered Dietitian Master Of Ceremonies). Lifestyle changes are also indicated including optimizing [...] as of this encounter (statuses as of 12/13/2023) Immunizations Name Administration Dates Next Due TDAP, Age 7 and older, IM (Adacel) 11/08/2023 documented as of this encounter Social History Tobacco Use Types Packs/Day Years Used Date Smoking Tobacco: Never Smokeless Tobacco: Never Alcohol Use Standard Drinks/Week Comments Never 0 (1 standard drink = 0.6 oz pur e alcohol) [place] Depression Scale Answer Date Recorded [place] Depression Scale Total 6 07/19/2023 The thought [...] Sign Reading Time Taken Comments Blood Pressure 126/78 12/13/2023 1:51 PM EDT Pulse - - Temperature - - Respiratory Rate - - Oxygen Saturation - - Inhaled Oxygen Concentration - - Weight 92.8 kg (204 lb 9.6 oz) 12/13/2023 1:51 P M EDT Height - - Body Mass Index 32.04 11/24/2023 8:33 AM EDT documented in this encounter Progress Notes * Nancy Girard CRNP - 12/13/2023 2:15 PM EDT 32w6d Some cramping in her back, denies contractions. Feels that she is drinking enough water. Following with [facility], reviewed blood sugars. Good management of GDM. Baby is active. No contractions or bleeding. Asking for a note for her mother to come stay for a while to help care for pt and baby. RICKY Roberson * Stacie Rodriguez CMA - 12/13/2023 1:51 PM EDT 32w6d Having menstrual like ramping. documented in this encounter Plan of Treatment Upcoming Encounters Date Type Department Care Team (Late st Contact Info) Description 12/27/2023 2:15 PM EDT Office Visit Gynecology/Obstetrics [facility] [address] [place] [id number] Nancy Girard CRNP [address] [place] [phone] 12/28/2023 9:30 AM EDT Office Visit [employer] Obstetrics Maternal Medicine, [facility] [address] [place] [id number] Jaz Grace, DO [address] [facility] [place] [address] 12/28/2023 9:30 AM EDT Imaging Maternal Medicine Imaging, Mandy Platas [address] [facility] [place] [phone] 01/17/2024 9:30 AM EDT Nutrition Services Nutrition, [facility] [address] [facility] [place] [address] Yesy Rogel, RDN [address] [place] [address] Health Maintenance Due Date Last Done Comments Depression Screening 2006 Hepatitis B Vaccine (1 of 3 - 19+ 3-dose series) 2013 COVID-19 Vaccine (2023-2 5 season) 2023 Influenza Vaccine (FLU shot) [...]
--- OUTSIDE RECORDS SUMMARY | 2024-01-29 19:13 | External Medical Summary | Summary of Care ---
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 [facility] Type Chronic Disease Management Chronic Disease Management Diabetes in Alarm Settings Standard per protocol Comments Has OneTouch Verio meter Reason for Visit * Reason Comments Consultation Gestational diabetes * Evaluate & Treat - Unlimited Visits (Within 10 days (routine)) - Authorized Specialty Diagnoses / Procedures Referred By Nils kemp Referred To Contact Obstetrics/Gynecology / Maternal Medicine Diagnoses Diet controlled gestational diabetes mellitus (GDM) in third trimester Nancy Girard CRNP [address] [place] [address] Referral ID Status Reason Start Date Expiration Date Visits Requested Visits Authorized [id number] Authorized Specialty Services Required 11/15/2023 11/15/[phone] Encounter Details Date Type Department Care Team ([facility] Contact Info) Description 11/29/2023 1:45 PM EDT Telemedicine Physiatrist Obstetrics Maternal Medicine [facility], Kenji Jin [address] [facility] [place] [phone] Moises Lopez CRNP [address] [address] Diet controlled gestational diabetes mellitus (GDM) in third trimester*; Supervision of high risk , antepartum, third trimester; 30 weeks gestation of Allergies No known active allergiesdocumented as of this encounter (statuses as of 11/29/2023) Medications Medication Sig Dispensed Refills Start Date End Date Status 6.75-0.2 MG Oral Tablet Take by mouth. Active OneTouch Verio Flex System w/Device KitIndications:Diet controlled gestational diabetes mellitus (GDM) in third trimester Use to test blood sugars 4 times daily (fasting, 1 hour after breakfast, lunch, and dinner) 1 Kit 11/15/2023 Active CoverPage PublishingTouch Verio In Vitro Strip (Glucose Blood)Indications:Diet controlled gestational diabetes mellitus (GDM) in third trimester Use to test blood sugars 4 times daily (fasting, 1 hour after breakfast, lunch, and dinner) 125 Strip 6 11/15/2023 Active CoverPage PublishingTouch Delica Lancets 30GIndications:Diet controlled gestational diabetes mellitus (GDM) in third trimester Use to test blood sugars 4 times daily (fasting, 1 hour after breakfast, lunch, and dinner) 200 Each 6 11/15/2023 Active documented as of this encounter (statuses as of 11/29/2023) Active Problems Problem Noted Date Diagnosed Date [...] blood sugars each week for MFM review Last Assessment & Plan: CONSIDERATIONS: Reviewed etiology [...] Recommend nutrition consult with RDN (Registered Dietitian Piling Setter). Lifestyle changes are also indicated including optimizing [...] Comme nts Yes 02/01/2024 Based on last va nstrual period of 04/27/2023 documented as of this encounter (statuses as of 11/29/2023) Immunizations Name Administration Dates Next Due TDAP, Age 7 and older, IM (Adacel) 11/08/2023 documented as of this encounter Social History Tobacco Use Types Packs/Day Years Used Date Smoking Tobacco: Never Smokeless Tobacco: Never Alcohol Use Standard Drinks/Week Comments Never 0 (1 standard drink = 0.6 oz pur e alcohol) Nixon Depression Scale Answer Date Recorded Nixon Depression Scale Total 6 07/19/2023 The thought [...] as of this encounter Progress Notes * Moises Lopez CRNP - 11/29/2023 1:59 PM EDT MATERNAL MEDICINE CONSULT Kaleigh Chacon 11/29/23 REFERRING PROVIDER: Nancy GARCÍA Patient location: HOME. I was in a hospital or clinic location. After connecting through Backlift[employer],patient was verified with two unique identifiers. 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 Methods to assure confidentiality were taken. Patient acknowledged consent and understanding of pr ivacy and security of the Telemedicine visit. The patient agreed to participate. Kaleigh Chacon is a 28 year old with intrauterine at 30w6d (Estimated Date ofDelivery: 02/01/24 by exact LMP) who presents today for an MFM consult due to gestational diabetes. HPI/CURRENT : pre- BMI=overweight (75.8 kg (167 lb); 5' 7"); FOB #1; complicated by above. Genetic testing: Low Risk Cell Free DNA [id number] Problems (from 07/13/23 to present) Problem Noted Resolved Diet controlled gestational diabetes mellitus (GDM) in third trimester 11/14/2023 by Nancy Girard CRNP No Overview Addendum 11/29/2023 1:46 PM by Moises Lopez CRNP Diagnosed at 28 weeks Nutrition consult complete [...] MFM ADAPT consult complete. Enrolled in [facility]. Instructions provided to report blood sugars each week for MFM review Supervision of high risk , antepartum 07/19/2023 by Nancy Girard CRNP No I have reviewed this patient's previous OB ultrasound reports, pertinent labwork and testing provided by her referring OB provider. Current Outpatient Medications Medication Sig Dispense Refill CoverPage PublishingTouch Delica Lancets 30G Use to test blood sugars 4 times daily (fasting, 1 hour after breakfast, lunch, and dinner) 200 Each 6 CoverPage PublishingTouch Verio Flex System w/Device Kit Use to test blood sugars 4 times daily (fasting, 1 hour after breakfast, lunch, and dinner) 1 Kit 0 OneTouch Verio In Vitro Strip (Glucose Blood) Use to test blood sugars 4 times daily (fasting, 1 hour after breakfast, lunch, and dinner) 125 Strip 6 6.75-0.2 MG Oral Tablet Take by mouth. No current facility-administered medications for this visit. Review of patient's allergies indicates: No Known Allergies OB History Para Term AB Living 1 0 0 0 0 0 SAB IAB Ectopic Multiple Live Births 0 0 0 0 0 # Outcome Date GA Lbr Liang/2nd Weight Sex Type Anes PTL Lv 1 Current Obstetric Comments 2023 #1 Art, age 39, health, has two boys who are healthy No past medical history on file. No past surgical history on file. Family History Problem Relation Name Age of Onset No Known Problems Mother No Known Problems Father No Known Problems Brother No Known Problems Brother No Known Problems Brother Social History Tobacco Use Smoking status: Never Smokeless tobacco: Never Vaping Use Vaping status: Never Used Substance Use Topics Alcohol use: Never Drug use: Never REVIEW OF SYSTEMS: headaches: no nausea/vomiting: denies reports movement: yes abdominal pain/tenderness/cramping/contractions: no vaginal bleeding: no vaginal leaking of fluid: no all other systems negative PHYSICAL EXAM: LMP 04/27/2023 General: Well appearing Psych: Alert to time, place, and person and Pleasant DISCUSSION/RECOMMENDATIONS: Problem List Items Addressed This Visit [id number] Diet controlled gestational diabetes mellitus (GDM) in third trimester - Primary CONSIDERATIONS: Reviewed etiology and risks associated with gestational diabetes mellitus (GDM), including risks topregnancy, fetus, and maternal progression to Type 2 [...] Recommend nutrition consult with RDN (Registered Dietitian Piling Setter). Lifestyle changes are also indicated including optimizing gestational weight gain and physical activity of 30 minutes per day, if not otherwise contraindicated in . Insulin is preferred if medications are indicated to optimize euglycemia. Metformin (preferred overglyburide) may also be used in some circumstances. [...] admission (or 6-8 weeks if not completed). Relevant Orders REMOTE PATIENT MONITORING REFERRAL Other Visit Diagnoses Supervision of high risk , antepartum, third trimester 30 weeks gestation of Follow up ultrasound with Maternal Medicine is scheduled on 12/01/[address] Gordon for anatomyscan secondary to gestational diabetes. Patient is aware of upcoming MFM appointment. RICKY Madrigal 11/29/2023 2:18 PM documented in this encounter Miscellaneous Notes * Assessment & Plan Note - Moises Lopez CRNP - 11/29/2023 1:46 PM EDT Associated Problem(s): Diet controlled gestational diabetes mellitus (GDM) in third trimester CONSIDERATIONS: Reviewed etiology and risks associated with gestational diabetes mellitus (GDM), including risks topregnancy, fetus, and maternal progression to Type 2 [...] Recommend nutrition consult with RDN (Registered Dietitian Piling Setter). Lifestyle changes are also indicated including optimizing gestational weight gain and physical activity of 30 minutes per day, if not otherwise contraindicated in . Insulin is preferred if medications are indicated to optimize euglycemia. Metformin (preferred overglyburide) may also be used in some circumstances. [...] admission (or 6-8 weeks if not completed). * Pt Handout (on AVS) - Moises Lopez CRNP - 11/29/2023 1:44 PM EDT Images from the original note were not included. Managing Gestational Diabetes - Video Being diagnosed with gestational diabetes can be stressful. But with proper care and management, you can stay healthy and deliver a healthy baby. In many cases, gestational diabetes goes away on its own after the mother gives . To view the video go to this web address: [email or web address] Or, scan this QR code with your smart phone [employer]. * Pt Handout (on AVS) - Moises Lopez CRNP - 11/29/2023 1:44 PM EDT Images from the original note were not included. [id number] What Is Gestational Diabetes? Gestational diabetes is a type of diabetes that happens during . Unlike type 1 diabetes, gestational diabetes is not caused by having too little insulin. Instead, hormones made by your placenta keep your body from using insulin as it should. This is called insulin resistance. Blood sugar (glucose) then builds up in your blood instead of being absorbed by the cells in your body and used for energy. This can cause high blood sugar and can cause problems for both you and your baby. You can take steps to control your blood sugar. This will help reduce the risks for you and your baby. Managing gestational diabetes You need to control your blood sugar while you are . Your healthcare team will help you make a plan to do this. This plan will include: Eating the right foods. This is the main way to control your blood sugar. You need to eat a variety of healthy foods each day. To help you plan changes in your diet, you will likely work with a registered dietitian (CASSIDY). This is an expert on food and nutrition. The dietitian may have you take part in a nutrition program to help you reach your goals. Getting exercise. Your body uses more blood sugar when you exercise. Your healthcare team can help you pick the best kinds of exercise for you. Checking your blood sugar. You will likely need to check your blood sugar at home. You will do this 2 or more times a day. You will likely check your fasting blood sugar and after meal (postprandial) blood sugar. Your healthcare team will teach you how. They will talk with you about your blood sugar goals. Your blood sugar may also be tested every week or so at a clinic. If your blood sugar stays too high, you may need to have insulin shots during your . Risks to your baby If your blood sugar stays high, your baby is at risk for these problems: Your baby may grow too large. If your blood sugar stays too high, your baby may grow too large. This is called macrosomia. This means a baby is too big for a safe vaginal . A large baby may get their shoulder stuck behind the pubic bone during . This is called shoulder dystocia. The baby's arms and shoulders could be injured. This may cause permanent arm damage. The baby may also have low oxygen levels (hypoxia) while they are stuck. Hypoxia can lead to cerebral palsy. In rare cases, it can lead to . Your baby?s organs may not be fully grown at . If you have diabetes, your baby may need to be delivered early. This may be because of problems with the . Or it may be because of risks to you or your baby. If your baby is delivered early, their lungs may not work well. This is called respiratory distress syndrome. Your baby's liver also may not work normally. And your baby may have yellow color in their skin and eyes (jaundice) after . Your baby?s blood sugar may be low after . If your blood sugar is too high, your baby makesextra insulin. The baby will keep making extra insulin right after . Your baby may need to be treated for low blood sugar. Your baby could be stillborn. This is very rare. But your baby could before if your blood sugar stays high for too long. Risks to you If you don?t control your blood sugar, you are more likely to have: High blood pressure. High blood sugar makes you more likely to have high blood pressure during your . This is a danger to your health. It could lead to early delivery for your baby. Infections. High blood sugar makes you more likely to have bladder, kidney, and vaginal infections. Trouble breathing. You may feel short of breath. High blood sugar can cause too much fluid around the baby. This is called polyhydramnios. Your abdomen gets big and pushes up on your lungs. Difficult labor. Your delivery may be harder. And your recovery may take longer. If your blood sugar stays too high, your baby may grow too large. A large baby might cause injury to you during . Or the baby may have to be delivered by section (). This means making a cut (incision) in your abdomen and uterus. A is a common risk of gestational diabetes. Reduce your future risk for type 2 diabetes Women who have gestational diabetes are at higher risk of type 2 diabetes later. You are also at higher risk for gestational diabetes in your next . You can help reduce your risk in these ways: Lose excess weight. Be as active as you can. Eat more fruits and vegetables. Eat fewer processed foods. Get regular blood tests to check for diabetes. Breastfeed your baby. Who is at risk for gestational diabetes? You're more at risk if you: Are overweight Have a family history of diabetes Have had a baby who before Had gestational diabetes in the past Are , , , [place] or [place] , or How daily issues affect your health Many things in your daily life impact your health. This can include transportation, money problems,housing, access to food, and childcare. If you can?t get to medical appointments, you may not receive the care you need. When money is tight, it may be difficult to pay for medicines. And living far from a grocery store can make it hard to buy healthy food. If you have concerns in any of these or other areas, talk with your healthcare team. They may know of local resources to assist you. Or they may have a staff person who can help. Last Reviewed Date: 10/18/202219993746-7319 [employer]. All rights reserved. This information is not intended as a substitute for professional medical care. Always follow your healthcare professional's instructions. * Pt Handout (on AVS) - Moises Lopez CRNP - 11/29/2023 1:44 PM EDT Images from the original note were not included. [address]252 Understanding Carbohydrates Just like a car needs the right type of fuel to run, you need the right kind of food to function. To keep your energy level up, your body needs food that has carbohydrates (carbs). But carbs raise blood sugar levels higher and faster than other kinds of food. Your dietitian will work with you to figure out the amount of carbs you need. Carbs come in 3 types: starches, sugars, and fiber. Starches Starches are found in grains, some vegetables, and beans. Grain products include bread, pasta, cereal, and tortillas. Starchy vegetables include potatoes, peas, corn, keith beans, yams, and squash. Kidney beans, moses beans, black beans, garbanzo beans, and lentils also have starches. Sugars Sugars are found naturally in many foods. Or they can be added. Foods that contain natural sugar include fruits and fruit juices, dairy products, honey, and molasses. Added sugars are found in most desserts, processed foods, candy, regular soda, and fruit drinks. These are very helpful to treat lowblood sugar (hypoglycemia). They give you sugar quickly. Try to keep at least 15 to 20 grams of these simple sugars with you at all times. Eat or drink these if you start to have symptoms of low blood sugar. Fiber Fiber comes from plant foods. Your body can't digest most fiber. Instead of raising blood sugar levels like other carbs, fiber stops blood sugar from rising too quickly. Fiber is found in fruits, vegetables, whole grains, beans, peas, and many nuts. Understanding how to count your carbs Keep track of the amount of carbs you eat. This can help you keep the right balance of carbs, physical activity, and medicine. The amount of carbs you need will be different from what other people need. How much you need depends on many things. These include your health, the medicines you take, andhow active you are. Your healthcare team will help you figure out the right amount of carbs for you. You may start with 45 to 60 grams of carbs per meal, depending on your case. Carb counting is a system that helps you keep track of the carbohydrates you eat at each meal. Carbs come from many foods. These include grains, starchy vegetables, fruit, milk, beans, and snackfoods. You can either count carbohydrate grams or carbohydrate servings. When you count carbohydrate servings, 1 carbohydrate serving = 15 grams of carbohydrates. Here are some examples of foods that have about 15 grams of carbs (1 serving of carbohydrates): 1/2 cup of canned or frozen fruit A small piece of fresh fruit (4 ounces) 1 slice of bread 1/2 cup of oatmeal 1/3 cup of rice 4 to 6 crackers 1/2 Bhutanese muffin 1/2 cup of black beans 1/4 of a large baked potato (3 ounces) 2/3 cup of plain fat-free yogurt 1 cup of soup 1/2 cup of casserole 6 chicken nuggets 5-merq-tjofjy brownie or cake without frosting 2 small cookies 1/2 cup of ice cream or sherbet Carb counting is easier when food labels are available. Look at the label to see how many grams of total carbs per serving the food contains. Then you can figure out how much you should eat. If your food doesn't have a nutrition label, you should be able to get an idea of how many carbs there are per serving by using a book or website. Two very important lines to look at on the label are the serving size and the total carbohydrate amount per serving. Here are some tips for using food labels to count your carbs: Check the serving size. The information on the label is based on that serving size. If you eat more than the listed serving size, you may have to double or triple the other information on the label. Check the total grams of carbs. Total carbohydrate from the label includes sugar, starch, and fiber. Be sure to use the total carbohydrate number (minus the fiber) and not sugar alone. Know how many grams of carbs you can have. Be familiar with the matching portion sizes. Compare labels. Compare the labels of different products. Look at serving sizes and total carbs to find the products that work best for you. Don't forget protein and fat. With the focus on carb counting, it might be easy to forget protein and fat in your meals. Don't forget to include sources of protein and healthy fat to balance your meals. Also watch how much salt (sodium) you eat. This is especially true if you have high blood pressure. If you have diabetes, limit the amount of sodium to less than 2,300 mg a day. It?s also important to be consistent with the amount of carbs and time you eat when taking a fixed dose of diabetes medicine. Work with your healthcare provider or dietitian if you need more help. They can help you keep track of your carbs. They can also help you figure out how many grams of carbs you should have. Last Reviewed Date: 05/19/202319994638-9983 [employer]. All rights reserved. This information is not intended as a substitute for professional medical care. Always follow your healthcare professional's instructions. * Pt Handout (on AVS) - Moises Lopez CRNP - 11/29/2023 1:44 PM EDT 60222 Understanding Blood Sugar During Gestational diabetes causes high blood sugar levels during . You are at risk of developing, or perhaps have already developed, gestational diabetes. Controlling your blood sugar can help prevent problems for you and your baby. Your body turns food into blood sugar As food is digested, it turns into sugar (glucose), a fuel that feeds your body. This sugar goes into your bloodstream. Your body then releases a substance called insulin to help your body use blood sugar correctly. Blood sugar goes to your baby The placenta is where nutrients in your blood are exchanged with your baby?s blood. Your blood sugar goes to your baby from the placenta through the umbilical cord. Your baby uses this sugar to grow. Too much blood sugar affects you and your baby During , the placenta makes hormones that can disrupt the way your body uses insulin. If your body can?t use insulin correctly, your blood sugar level gets too high. Then too much blood sugar goes to your baby. This can cause problems for both you and your baby. Controlling your blood sugar helps prevent problems You can lower your blood sugar by eating right, exercising, and taking medicines that your healthcare provider prescribes to control your blood sugar. If you keep your blood sugar in control, the risks to you and your baby are the same as those for a normal . Last Reviewed Date: 2023 [employer]. All rights reserved. This information is not intended as a substitute for professional medical care. Always follow your healthcare professional's instructions. * Pt Handout (on AVS) - Moises Lopez CRNP - 11/29/2023 1:44 PM EDT Images from the original note were not included. Diabetes in - Video Two types of diabetes can occur during ?pre-existing diabetes, which will continue after , and gestational diabetes, which will go away after the baby is born. Diabetes is a condition in which your body doesn?t make enough insulin or you can?t use it correctly. This video offers details on how these two types diabetes can affect a . To view the video go to this web address: [email or web address] Or, scan this QR code with your smart phone Last Reviewed Date: 06/19/201919996679-7393 [employer]. All rights reserved. This information is not intended as a substitute for professional medical care. Always follow your healthcare professional's instructions. * Pt Handout (on AVS) - Moises Lopez CRNP - 11/29/2023 1:44 PM EDT Images from the original note were not included. [address] Diabetes: Shopping for and Making Meals Having diabetes doesn?t mean you have to shop in a special aisle or look for special foods. But you'll need to make healthy food choices. Comparing items and reading food labels is zarco. This can helpyou find the healthiest foods for you and your family. Comparing items When you shop, compare items to find the best ones for your needs. Keep these facts in mind: No sugar added doesn't mean a product is sugar-free. Sugar-free means less than 1/2 gram (g) of sugar per serving. Fat-free means less than 1/2 g of fat per serving. This does not necessarily mean the product islow in calories. Low fat means 3 g fat or less per serving. Reduced fat or less fat means 25% less fat than the regular version. Some of this fat may be saturated or trans fat. And the calories per serving may be similar to the regular version. Making small changes Don?t try to change all of your eating habits at once. Here are some ideas to start with: Try fat-free or low-fat cheese, milk, and yogurt. Also, try leaner cuts of meat. This will help you cut down on saturated fat. Try whole-grain bread, brown rice, and whole-wheat pasta. Load up on fresh or frozen vegetables. If you buy canned, choose low-sodium vegetables. Stay away from processed foods as much as possible. They tend to be low in fiber and high in trans fats and salt. Limit how much salt you have to 2,300 mg per day. Try tofu, soy milk, or meat substitutes.?They can help you cut cholesterol and saturated fat outof your diet. Learning to read food labels To find healthy foods that help you control blood sugar, learn how to read food labels. Look for the Nutrition Facts label on packaged foods. It will tell you how many servings there are in the package. It will also tell you the amount of carbohydrate, sugar, fat, and fiber in each serving. Then you can decide if the food fits into your meal plan. Using the food label So, once you have the food label, what do you do with it? The food label helps in many ways. Use itto: Compare items. Decide which is the best for your health needs. Track the number of carbohydrates in your portions. Figure out how many servings of a food you can have and still stay within the number of carbohydrates for that meal. Planning meals For good blood sugar control, plan what and when you?ll eat. Start by making a meal plan that includes all the food groups. Then time your meals and exercise to help keep your blood sugar level steady. You may need to adjust your plan for special situations. But 3 of the best ways to manage your blood sugar are to: Eat meals and snacks at the same time every day Eat about the same amount of food Exercise each day Eating from all the food groups A healthy meal plan starts with eating many different types of foods. Look for lean meats, fresh fruits and vegetables, whole grains, and low-fat or nonfat dairy products. Eating a wide variety of healthy foods offers the nutrients your body needs. It can also keep you from getting bored with your meal plan. Reducing liquid sugars Extra calories from sodas, sports drinks, and fruit drinks make it hard to keep blood sugar in range. Cut as many liquid sugars from your meal plan as you can. This includes most fruit juices. These are often high in natural or added sugar. Instead, take plenty of water and other sugar-free drinks. Eating less fat If you need to lose some weight, try to reduce the amount of fat in your diet. This can also help lower your cholesterol level. This can keep blood vessels healthier. Cut fat by using only small amounts of liquid oil for cooking. Read food labels carefully. This can help you stay away from foods with unhealthy trans fats. Timing your meals When it comes to blood sugar control, when you eat is as important as what you eat. You may need toeat several small meals spaced evenly during the day. This can help you stay in your target range. So don?t skip breakfast or wait until late in the day to get most of your calories. Doing so can make your blood sugar rise too high or fall too low. Cooking wisely Broil, steam, bake, or grill meats and vegetables. Don't pink them. Flavor foods with vegetable pure, lemon or cachil dehe juice, or herb seasonings. Don't use cream-based sauces or sugary glazes. Remove skin from chicken and turkey before serving. Look in cookbooks for easy low-fat, low-sugar recipes. When making your normal recipes, cut sugar by 1/2. Cut fat by 1/3. Last Reviewed Date: 06/19/202319990785-0073 [employer]. All rights reserved. This information is not intended as a substitute for professional medical care. Always follow your healthcare professional's instructions. * Pt Handout (on AVS) - Moises Lopez RICKY Brown - 11/29/2023 1:44 PM EDT Images from the original note were not included. [id number] Gestational Diabetes: After Your blood sugar will most likely return to normal after delivery. But gestational diabetes is a warning sign that you are at risk of getting diabetes later in life. You?re also more likely to have gestational diabetes with your next . But you can take steps to reduce these risks. Taking care of yourself Even if your blood sugar goes back to normal, you still need to take care of yourself. This will help prevent diabetes later in life. You'll need to: Keep your weight down. Eating food that is low in fat and sugar can help you control your weight. If you?re overweight, your risk of getting diabetes in 10 to 15 years more than doubles. Keeping your weight down also reduces your risk of gestational diabetes in your next . Get regular exercise. Exercise helps lower your blood sugar. It can also help you control your weight. Try to work up to at least 150 to 300 minutes of moderate exercise every week. This is at least 30 minutes each day. Have your blood sugar checked. Make an appointment to have your blood sugar checked 6 to 8 weeksafter delivery. If your blood sugar is still high, you may have type 2 diabetes. Your healthcare provider will tell you more about how to manage diabetes long-term. Have regular diabetes screenings. Have blood tests every year, or as often as your healthcare provider advises. Breastmilk is the best food for your baby. Giving only breastmilk is advised for at least your baby's first 6 months. may also help lower your blood sugar. Your healthcare provider can show you how to breastfeed. Be sure to eat healthy foods and drink extra water while you?re . You may find exercise easier right after . This is when your breasts may feel law professor. Planning a future Your blood sugar needs to be back to normal before you get again. Have your blood sugar checked before you plan your next . And remember that it?s possible to get again soon after you give . Talk with your healthcare provider about the best method of control for you and your partner. Last Reviewed Date: 04/20/202119994043-2725 [employer]. All rights reserved. This information is not intended as a substitute for professional medical care. Always follow your healthcare professional's instructions. * Pt Handout (on AVS) - Moises Lopez CRNP - 11/29/2023 1:44 PM EDT Images from the original note were not included. 51187 Gestational Diabetes: Exercise Exercise can help you keep your blood sugar in a normal range. That?s because your body uses more blood sugar when you exercise. Diabetes in can often be managed with careful nutrition and exercise alone. Then you may not need medicine to control your blood sugar. Exercise regularly Your healthcare provider may want you to exercise each day. The best time depends on when your blood sugar is highest. Exercising may also help ease some common symptoms of . These include bloating, constipation, and backaches. Ask about exercise at your first care visit. Your provider will work with you to make an exercise plan that fits your needs. Here are some tips: Aim to exercise for 30 to 60 minutes a day. Do this at moderate intensity. This means you're moving enough to raise your heart rate and start sweating. But you can still talk normally. Try breaking up daily exercise into 2 or 3 sessions. For example, take a 15- minute walk after each meal. Exercise with a friend or your partner. This may help you stick to your exercise plan. Go at a comfortable pace. Don?t tire yourself out. Exercise safely Ask your provider about exercise safety for you and your baby. Walking, swimming, and low-impact orwater aerobics are often the safest things to do. Other safety tips include: Don't do activities where you jump, turn, twist, stop or start quickly. Don't lift heavy weights. Don't exercise on your back after the first trimester. This can put too much pressure on an important vein. It can limit blood flow to the baby. If you do yoga or Pilates, find a class designed for . Use a sports bra to support your breasts. You may also want to use a belly support belt later inpregnancy. Don't get overheated. Don't do hot yoga or hot Pilates. Don't raise your heart rate to a level that makes it hard to talk. Drink plenty of water. If you use insulin, carry a carbohydrate snack with you. If you walk or do low-impact aerobics, wear sturdy shoes. If you haven?t eaten in 2 or more hours, have a light snack before exercising. Don't do contact sports that put you at risk of being hit in the belly. These include boxing, ice hockey, soccer, and basketball. Don't go skydiving or scuba diving. Don't do things that may cause a serious fall. These include horseback riding, gymnastics, and off-road cycling. Use a stationary bike. It's a safer choice than a standard bike. It will stop you from getting off balance with your growing belly. When it's not safe to exercise It's not advised to exercise when if you have any of these health conditions: Some types of heart and lung diseases with twins or more, and at risk for labor labor of your water has broken (ruptured membranes) Placenta previa later than 26 weeks of Preeclampsia or high blood pressure due to Severe anemia Cervical insufficiency or cerclage When to call your healthcare provider Call your provider right away or go to the emergency room (ER) if you have any of these: Belly pain Shortness of breath before starting exercise Vaginal bleeding Dizziness or feeling faint Chest pain Headache Decreased movement contractions Muscle weakness Calf pain or swelling Fluid leaking from the vagina Last Reviewed Date: 04/20/202119990938-7735 [employer]. All rights reserved. This information is not intended as a substitute for professional medical care. Always follow your healthcare professional's instructions. * Pt Handout (on AVS) - Moises Lopez CRNP - 11/29/2023 1:44 PM EDT Images from the original note were not included. [id number] Healthy Meals for Diabetes Figuring out what to eat can be one of the most confusing parts of diabetes. It will help you to have a meal plan. You can ask your healthcare team to help you make a meal plan that fits your needs. Your meal plan tells you when to eat your meals and snacks, what kinds of foods to eat, and how muchof each food to eat. You don?t have to give up all the foods you like but following some guidelines will set you up for success in managing your diabetes. A healthcare provider will help you develop a meal plan that fits your needs. Choose healthy carbohydrates Starches, sugars, and fiber are all types of carbohydrates (carbs). Carbs can get a bad reputation since they affect your blood sugar the most. It is important to remember that your body benefits from the right amount of healthy carbs. Fiber can help lower your cholesterol and triglycerides. Fiber is also healthy for your heart. You should have 20 to 35 grams of total fiber each day. Fiber comes from plants. Fiber-rich foods include: Whole-grain breads and cereals Nuts Brown rice and quinoa Whole-wheat pasta Fruits and vegetables Beans and peas Keep track of the amount of carbs you eat. This can help you keep the right balance of physical activity and medicine. The amount of carbs needed will vary for each person. It depends on many things such as your health, the medicines you take, and how active you are. Your healthcare team will help you figure out the right amount of carbs for you. You may start with around 45 to 60 grams of carbs per meal, depending on your needs. Here are some examples of foods that have about 15 grams of carbs (1 serving of carbs): 1/2 cup of canned or frozen fruit A small piece of fresh fruit (4 ounces) 1 slice of bread 1/2 cup of oatmeal 1/3 cup of rice 4 to 6 crackers 1/2 Bhutanese muffin 1/2 cup of black beans 1/4 of a large baked potato (3 ounces) 2/3 cup of plain fat-free yogurt 1 cup of soup 1/2 cup of casserole 6 chicken nuggets 8-mptl-goyuut brownie or cake without frosting 2 small cookies 1/2 cup of ice cream or sherbet Choose healthy protein foods Proteins play a zarco role in building healthy muscles, bones, skin, and many other parts of your body. Eating protein that's low in fat can help you control your weight. It also helps keep your heart healthy. Low-fat protein foods include: Fish Plant proteins, such as lentils, beans, peas, nuts, and soy products like tofu and soymilk Lean meat with all visible fat removed Poultry with the skin removed Low-fat or nonfat milk, cheese, and yogurt Limit unhealthy fats and sugar Saturated and trans fats are unhealthy for your heart. They raise LDL (bad) cholesterol. Fat is also high in calories. To cut down on unhealthy fats and sugar, limit these foods: Butter or margarine Palm and palm kernel oils and coconut oil Cream Cheese Lynn Lunch meats Ice cream Sweet bakery goods such as pies, muffins, and donuts Jams and jellies Candy bars Regular sodas How much to eat The amount of food you eat affects your blood sugar. It also affects your weight. Your healthcare team will tell you how much of each type of food you should eat. Use measuring cups and spoons and a food scale to measure serving sizes. Learn what a correct serving size looks like on your plate. This will help when you're away fromst. vincent's blounte and can?t measure your servings. For instance, a serving of meat is about the size of the palmof your hand. Eat only the number of servings given on your meal plan for each food. Don?t take seconds. Learn to read food labels. Be sure to look at serving size, total carbohydrates, fiber, calories, sugar, salt, and saturated and trans fats. Look for healthier options such as foods with no added sugar or salt. Plan ahead for parties. Then you can still have a good time without diving into unhealthy food choices. Bring a healthy dish to [employer]. Choose healthy snacks When it comes to snacks, we often think about foods with added sugar and fats. But there are many other options for healthier snack choices. Here are a few snack ideas to choose from: Snacks with less than 5 grams of carbohydrates 1 piece of string cheese 3 celery sticks plus 1 tablespoon of peanut butter 5 sosa tomatoes plus 1 tablespoon of ranch dressing 1 hard-boiled egg 1/4 cup of fresh blueberries 5 baby carrots 1 cup of light popcorn 1/2 cup of sugar-free gelatin 15 almonds Snacks with about 10 to 20 grams of carbohydrates 1/3 cup of hummus plus 1 cup of fresh cut non-starchy vegetables (carrots, green peppers, broccoli, celery, or a mix) 1/2 cup of fresh or canned fruit plus 1/4 cup of cottage cheese 1/2 cup of tuna salad with 4 crackers 2 rice cakes and a tablespoon of peanut butter 1 small apple or orange 3 cups light popcorn 1/2 of a turkey sandwich (1 slice of whole-wheat bread, 2 ounces of turkey, and mustard) Portion sizes are important for controlling your blood sugar and staying at a healthy weight. Stockup on healthy snack foods so you always have them on hand. When to eat Your meal plan will likely include breakfast, lunch, dinner, and some snacks. Try to eat your meals and snacks at about the same times each day. Eat all your meals and snacks. Skipping a meal or snack can make your blood sugar drop too low. It can also cause you to eat too much at the next meal or snack. Then your blood sugar could get toohigh. Be patient It can be stressful trying to figure out what to eat. But over time, you?ll form new habits around your meal plan and healthy guidelines. Then eating right for your blood sugar will be much easier. Last Reviewed Date: 06/19/202319995276-1235 [employer]. All rights reserved. This information is not intended as a substitute for professional medical care. Always follow your healthcare professional's instructions. * Pt Handout (on AVS) - Moises Lopez CRNP - 11/29/2023 1:44 PM EDT Images from the original note were not included. [id number] If You Need Extra Insulin During During , your body may not be able to make enough insulin to control your blood sugar. If this happens, you may need extra insulin. This will help control your blood sugar. In some cases, anoral antidiabetic medicine may be used. An example of this is glyburide. But insulin is used most often. Insulin is a natural substance. It is not addictive. It does not harm your baby. It does not cross the placenta. That means it does not affect your baby the way taking a pill would. If you did not have diabetes before , you will likely stop taking insulin after your baby is born. Learning to use insulin Your healthcare provider will prescribe your insulin. They will teach you how to give yourself a shot. With practice, you?ll get comfortable doing it. You will need to inject it 1 or more times a day. Insulin is injected into fatty tissue. The best site for a shot of insulin is in your belly area. But you can also do the shot in your upper arm or thigh. Talk with your healthcare provider about where to give the shot. Here are some steps to follow: Choose an injection site. Clean it with alcohol if the skin is dirty. Pinch a fold of skin. Insert the needle at a steep angle. The best angle will depend on your body type, the length of the needle, and where you put the shot. Your healthcare provider will help youfind the best angle. Keeping the skin pinched, push the plunger down. This injects the insulin. Release the pinched skin. Remove the needle from your skin. If you see blood or insulin leaking from your skin, press firmly on the site for 5 to 8 seconds. Don?t rub your skin in the area. [place] and syringes should be used only 1 time. After using, throw them away in a puncture-proof container. This is known as a sharps container. Don?t throw needles in your household trash. Talk to your healthcare provider if you have any questions or concerns about taking insulin. The best site for injecting insulin is your abdomen. But you can also inject into an upper arm or thigh. Talk with your health care provider about where to give yourself a shot. Finding the right dose for you Your healthcare provider will work with you to find the right dose of insulin for you. It may take time. This is because you need to balance your insulin with your food and exercise. And your body needs more insulin as your baby grows. You must check your blood sugar several times a day. This is to be sure your insulin is working. Ifyour blood sugar is too high or too low, your healthcare provider will adjust your dose. Low blood sugar Taking insulin puts you at risk of low blood sugar. Symptoms of low blood sugar include: Shakiness Dizziness Weakness Confusion If you feel any of these symptoms, check your blood sugar right away. Always treat low blood sugar quickly. To do this, eat 15 grams of fast-acting sugar, such as: 3 glucose tablets 5 to 6 pieces of hard candy 1 to 2 tablespoons of honey or sugar cup fruit juice or regular, nondiet soda 1 cup fat-free milk Then check your blood sugar again in 15 minutes. If your blood sugar is still low, eat another 15 grams of sugar. If your blood sugar does not return to the target range in 30 minutes, call your healthcare provider. Last Reviewed Date: 02/17/202219998808-5112 [employer]. All rights reserved. This information is not intended as a substitute for professional medical care. Always follow your healthcare professional's instructions. * Pt Handout (on AVS) - Moises Lopez CRNP - 11/29/2023 1:44 PM EDT Images from the original note were not included. Diabetes and Healthy Eating - Video If you have diabetes, you know it's important to keep your blood glucose level within a safe range.One of the best ways to do this is by eating a healthy diet. Let's take a few minutes to learn about some good eating habits that can make a difference for you. To view the video go to this web address: https://bit.TechSkills/3LLSHqM Or, scan this QR code with your smart phone [employer]. documented in this encounter Plan of Treatment Upcoming Encounters Date Type Department Care Team (Late st Contact Info) Description 12/01/2023 9:30 AM EDT Office Visit [facility] Deb[facility] Miller [address] [place] [address] [address] [place] [id number] Doris Hopkins, DO [address] [facility] [place] [phone] 12/01/2023 9:30 AM EDT [facility] Debbi Miller [address] [place] [address] [address] [place] [phone] 12/13/2023 2:00 PM EDT Office Visit Gynecology/Obstetrics [facility] [address] [place] [phone] Nancy Girard CRNP [address] [place] [address] 01/17/2024 9:30 AM EDT Nutrition Services Nutrition, [facility] [address] [place] [id number] Yesy Rogel RDN [address] [place] [id number] Scheduled Referrals Name Type Priority Associated Diagnoses Orde r Schedule REMOTE PATIENT MONITORING REFERRAL Referral Within 3 days (urgent) Diet controlled gestational diabetes mellitus (GDM) in third trimester Ordered: 11/29/2023 Health Maintenance Due Date Last Done Comments Depression Screening 2006 Hepatitis B Vaccine (1 of 3 - 19+ 3-dose series) 2013 COVID-19 Vaccine ( - 2022-2 4 season) 2023 Influenza Vaccine (FLU shot) (#1) [...] trimester- Primary Supervision of high risk , antepartum, third trimester 30 weeks gestation of state, incidental documented in this encounter
--- OUTSIDE RECORDS SUMMARY | 2024-01-29 19:13 | External Medical Summary | Summary of Care ---
Author Name Unknown Organization [facility] Address [address] [place] [address] Phone [phone] Care Team Providers Care Welding Engineer Name Role Phone Unavailable Primary Care Provider Unavailabl e Reason for Visit * Reason Comments Return Visit Encounter Details Date Type Department Care Team (Late st Contact Info) Description 12/27/2023 2:15 PM EDT Office Visit Gynecology/Obstetric s Flavio Tejada [address] [place] [address] Nancy Girard CRNP [address] [place] [phone] Supervision of high risk , antepartum*; Diet controlled gestational diabetes mellitus (GDM) in third trimester Allergies No known active allergiesdocumented as of this encounter (statuses as of 12/27/2023) Medications Medication Sig Dispensed Refills Start Date End Date Status 6.75-0.2 MG Oral Tablet Take by mouth. Active StageBloc Verio Flex System w/Device KitIndications:Diet controlled gestational diabetes mellitus (GDM) in third trimester Use to test blood sugars 4 times daily (fasting, 1 hour after breakfast, lunch, and dinner) 1 Kit 11/15/2023 Active Plethora Technologyuch Verio In Vitro Strip (Glucose Blood)Indications:Diet controlled gestational diabetes mellitus (GDM) in third trimester Use to test blood sugars 4 times daily (fasting, 1 hour after breakfast, lunch, and dinner) 125 Strip 6 11/15/2023 Active CinemaKiTouch Delica Lancets 30GIndications:Diet controlled gestational diabetes mellitus (GDM) in third trimester Use to test blood sugars 4 times daily (fasting, 1 hour after breakfast, lunch, and dinner) 200 Each 6 11/15/2023 Active documented as of this encounter (statuses as of 12/27/2023) Active Problems Problem Noted Date Diagnosed Date [...] blood sugars each week for MFM review 12/06/20233946-AOV-fwxsedwu 3 fasting blood sugars (1 elevated) and 4 post prandial values (1 elevated). Messaged to be consistent with testing four times daily and reporting. Review again next week 12/13/20235183-NEA-mmlsun 12/20/23: RPM reviewed; Stable 12/27/20236296-MJQ-iesdua. Multiple missed readings. Sent message asking her to be consistent with testing and reporting Last Assessment & Plan: CONSIDERATIONS: Reviewed etiology [...] Recommend nutrition consult with RDN (Registered Dietitian Animal Rescuer). Lifestyle changes are also indicated including optimizing [...] as of this encounter (statuses as of 12/27/2023) Immunizations Name Administration Dates Next Due TDAP, Age 7 and older, IM (Adacel) 11/08/2023 documented as of this encounter Social History Tobacco Use Types Packs/Day Years Used Date Smoking Tobacco: Never Smokeless Tobacco: Never Alcohol Use Standard Drinks/Week Comments Never 0 (1 standard drink = 0.6 oz pur e alcohol) [place] Depression Scale Answer Date Recorded [place] Depression Scale Total 6 07/19/2023 The thought [...] Sign Reading Time Taken Comments Blood Pressure 128/78 12/27/2023 1:52 PM EDT Pulse - - Temperature - - Respiratory Rate - - Oxygen Saturation - - Inhaled Oxygen Concentration - - Weight 92.5 kg (204 lb) 12/27/2023 1:52 PM EDT Height - - Body Mass Index 31.95 11/24/2023 8:33 AM EDT documented in this encounter Progress Notes * Nancy Girard CRNP - 12/27/2023 2:00 PM EDT 34w6d Having some pain in her wrist. Discussed carpal tunnel. Reviewd message that ADAPT stated she missed some blood sugar readings. She states she had run out of strips, but has them now. Will get readings to [facility]. Has appt tomorrow for growth. Baby is active. No contractions or bleeding. Declines RSV vaccine. RICKY Roberson * Stacie Rodriguez CMA - 12/27/2023 1:52 PM EDT 34w6d Denies any concerns documented in this encounter Plan of Treatment Upcoming Encounters Date Type Department Care Team (Late st Contact Info) Description 12/28/2023 9:30 AM EDT Office Visit Bulb Packer Obstetrics Maternal Medicine, [place] [address] Jaz Grace, DO [address] [place] [address] 12/28/2023 9:30 AM EDT Imaging Maternal Medicine Imaging, [place] [phone] 01/10/2024 2:15 PM EDT Office Visit Gynecology/Obstetrics Flavio eTjada [address] [place] [address] Nancy Girard CRNP [address] [place] [address] 01/17/2024 9:30 AM EDT Nutrition Services Nutrition, Mandy Tejada [address] [place] [address] Yesy Rogel RDN [address] [place] [phone] Health Maintenance Due Date Last Done Comments [...]
--- OUTSIDE RECORDS SUMMARY | 2024-01-29 19:13 | External Medical Summary | Summary of Care ---
Author Name Unknown Organization [facility] Address [address] [place] [address] Phone [phone] Care Team Providers Care Sole Tier Name Role Phone Unavailable Primary Care Provider Unavailabl e Reason for Visit * Reason Onset Date Comments Encounter Created in Error 12/01/2023 Encounter Details Date Type Department Care Team (Late st Contact Info) Description 12/01/2023 Telephone Foreign Collection Clerk Obstetrics Maternal Medicine, [place] [address] [place], [place] [phone] [place], Nurse Foreign Collection Clerk [facility] [address] [place], [place] [phone] Encounter Created in Error Allergies No known active allergiesdocumented as of this encounter (statuses as of 12/01/2023) Medications Medication Sig Dispensed Refills Start Date End Date Status 6.75-0.2 MG Oral Tablet Take by mouth. Active [employer] Training Room (TTR)uch Amcom Softwareio Flex System w/Device KitIndications:Diet controlled gestational diabetes mellitus (GDM) in third trimester Use to test blood sugars 4 times daily (fasting, 1 hour after breakfast, lunch, and dinner) 1 Kit 11/15/2023 Active SPHARESTouch Amcom Softwareio In Vitro Strip (Glucose Blood)Indications:Diet controlled gestational diabetes mellitus (GDM) in third trimester Use to test blood sugars 4 times daily (fasting, 1 hour after breakfast, lunch, and dinner) 125 Strip 6 11/15/2023 Active OneTouch Delica Lancets 30GIndications:Diet controlled gestational diabetes mellitus (GDM) in third trimester Use to test blood sugars 4 times daily (fasting, 1 hour after breakfast, lunch, and dinner) 200 Each 6 11/15/2023 Active documented as of this encounter (statuses as of 12/01/2023) Active Problems Problem Noted Date Diagnosed Date [...] Recommend nutrition consult with RDN (Registered Dietitian Raise Miner). Lifestyle changes are also indicated including optimizing [...] as of this encounter (statuses as of 12/01/2023) Immunizations Name Administration Dates Next Due TDAP, Age 7 and older, IM (Adacel) 11/08/2023 documented as of this encounter Social History Tobacco Use Types Packs/Day Years Used Date Smoking Tobacco: Never Smokeless Tobacco: Never Alcohol Use Standard Drinks/Week Comments Never 0 (1 standard drink = 0.6 oz pur e alcohol) [place] Depression Scale Answer Date Recorded [place] Depression Scale Total 6 07/19/2023 The thought [...] on file documented as of this encounter Plan of Treatment Upcoming Encounters Date Type Department Care Team (Late st Contact Info) Description 12/13/2023 2:00 PM EDT Office Visit Gynecology/Obstetrics [facility] [address] [facility] [place] [address] Nancy Girard CRNP [address] [place] [address] 12/28/2023 9:30 AM EDT Office Visit Foreign Collection Clerk Obstetrics Maternal Medicine, [facility] [address] [facility] [place] [address] Sanjay Jazsilvino Juan, DO [address] [place] [address] 12/28/2023 9:30 AM EDT Imaging Maternal Medicine Imaging, [facility] [address] [facility] [place] [phone] 01/17/2024 9:30 AM EDT Nutrition Services Nutrition, [facility] [address] [facility] [place] [address] Yesy Rogel, RAJAN [address] [place] [address] Health Maintenance Due Date Last Done Comments [...]
--- OUTSIDE RECORDS SUMMARY | 2024-01-29 19:13 | External Medical Summary | Summary of Care ---
Author Name Unknown Organization [facility] Address [address] [place] [address] Phone [phone] Care Team Providers Care Control Technician Name Role Phone Unavailable Primary Care Provider Unavailabl e Reason for Visit * Reason Onset Date Comments Appointment 12/01/2023 Encounter Details Date Type Department Care Team (Late st Contact Info) Description 12/01/2023 Telephone Breeding Technician Obstetrics Maternal Medicine, [place] [address] [place], [place] [phone] [place], Nurse Breeding Technician [facility] [address] [place], [place] [phone] Appointment Allergies No known active allergiesdocumented as of this encounter (statuses as of 12/01/2023) Medications Medication Sig Dispensed Refills Start Date End Date Status 6.75-0.2 MG Oral Tablet Take by mouth. Active CalsysTouch Verio Flex System w/Device KitIndications:Diet controlled gestational diabetes mellitus (GDM) in third trimester Use to test blood sugars 4 times daily (fasting, 1 hour after breakfast, lunch, and dinner) 1 Kit 11/15/2023 Active CalsysTouch Verio In Vitro Strip (Glucose Blood)Indications:Diet controlled gestational diabetes mellitus (GDM) in third trimester Use to test blood sugars 4 times daily (fasting, 1 hour after breakfast, lunch, and dinner) 125 Strip 6 11/15/2023 Active CalsysTouch Delica Lancets 30GIndications:Diet controlled gestational diabetes mellitus [...] Recommend nutrition consult with RDN (Registered Dietitian Market Research Analyst). Lifestyle changes are also indicated including optimizing [...] drink = 0.6 oz pur e alcohol) [place] Depression Scale Answer Date Recorded [place] Depression Scale Total 6 07/19/2023 The thought [...] Telephone Encounter - Madeline Toure OSA - 12/01/2023 1:47 PM EDT Spoke with Kaleigh. Appointment scheduled. Patient aware of date, time and location of Maternal Medicine appointment. * Telephone Encounter - Annette Gibson OSA - 12/01/2023 12:38 PM EDT Phone call to patient. Left message on [employer] voice mail. Encouraged patient to return call [facility] to assist with scheduling. Needs 4 week growth scan documented in this encounter Plan of Treatment Upcoming Encounters Date Type Department Care Team (Late st Contact Info) Description 12/13/2023 2:00 PM EDT Office Visit Gynecology/Obstetrics Flavio Tejada [address] [place] [address] Nancy Girard CRNP [address] [place] [address] 12/28/2023 9:30 AM EDT Office Visit Breeding Technician Obstetrics Maternal Medicine, Mandy Tejada [address] [place] [address] Jaz Grace, DO [address] [place] [address] 12/28/2023 9:30 AM EDT Imaging Maternal Medicine Imaging, Mandy Tejada [address] [place] [phone] 01/17/2024 9:30 AM EDT Nutrition Services Nutrition, Mandy Tejada [address] [place] [address] Yesy Rogel RDN [address] [place] [phone] Health Maintenance Due Date Last Done Comments [...]
--- OUTSIDE RECORDS SUMMARY | 2024-01-29 19:13 | External Medical Summary | Summary of Care ---
Author Name Unknown Organization [facility] Address [address] [place] [address] Phone [phone] Care Team Providers Care Power Plant Superintendent Name Role Phone Unavailable Primary Care Provider Unavailabl e Encounter Details Date Type Department Care Team (Late st Contact Info) Description 12/01/2023 9:30 AM EDT Office Visit Blacktop Paver Operator [facility] Debbi Miller [address] [place] [address] [address] [place] [address] Doris Hopkins, DO [address] [place] [address] Diet controlled gestational diabetes mellitus (GDM) in third trimester*; Supervision of high risk , antepartum; 31 weeks gestation of Allergies No known active allergiesdocumented as of this encounter (statuses as of 12/01/2023) Medications Medication Sig Dispensed Refills Start Date End Date Status 6.75-0.2 MG Oral Tablet Take by mouth. Active Sideris PharmaceuticalsToCloudian Verio Flex System w/Device KitIndications:Diet controlled gestational diabetes mellitus (GDM) in third trimester Use to test blood sugars 4 times daily (fasting, 1 hour after breakfast, lunch, and dinner) 1 Kit 11/15/2023 Active Lucidity (MemberRx)uch Verio In Vitro Strip (Glucose Blood)Indications:Diet controlled [...] Recommend nutrition consult with RDN (Registered Dietitian Creative Designer). Lifestyle changes are also indicated including optimizing [...] drink = 0.6 oz pur e alcohol) [place] Depression Scale Answer Date Recorded [place] Depression Scale Total 6 07/19/2023 The thought [...] as of this encounter Progress Notes * Doris Hopkins DO - 12/01/2023 10:31 AM EDT MATERNAL MEDICINE VISIT Patient location: CLINIC. I was not in a hospital or clinic location. After connecting through [employer], patient was verified with two unique identifiers. Patient (or authorized legal claim service representative) was then informed that this was a Telemedicine visit and being conducted confidentially over secure lines. My office door was closed. No one else was in the room with me. Patient acknowledged consent and understanding of privacy and security of the Telemedicine visit, and gave permission to have atelemedicine presenter stay in the room in order to assist with the history and to conduct the examas needed. I informed the patient that I have reviewed their record in [facility] and presented the opportunity for them to ask any questions regarding the visit today. The patient agreed to participate. Kaleigh Chacon presented today at 31w1d for an ultrasound and follow-up of her high risk . She was seen for the following indications: Problem List Items Addressed This Visit Supervision of high risk , antepartum Diet controlled gestational diabetes mellitus (GDM) in third trimester - Primary Other Visit Diagnoses 31 weeks gestation of We reviewed today's ultrasound findings. Patient presented at 31w 1d for growth assessment and anatomy survey All anatomy seen today appears reassuring. Angle of the feet/ankles are suboptimal today due to position and late gestational age. Normal growth with EFW 1522 g at 14%ile. Normal YVONNE at 9.6 cm. Cephalic presentation. (For full details, please refer to ultrasound report provided separately). Ms. Chacon's questions were answered to her satisfaction. She was advised to contact our office or her OB provider for any additional questions regarding her . RECOMMENDATIONS: Recommend follow up ultrasound with MFM in 4 weeks for growth secondary to above indications. Thank you for allowing us to participate in the care of this patient. Please call with any questions. I spent a total of 7 minutes on the date of service in preparation, delivery, and documentation of the care provided to Kaleigh Chacon excluding any time spent in the performance of separately billed services. Doris Gordon DO 12/01/2023 10:31 AM documented in this encounter Plan of Treatment Upcoming Encounters Date Type Department Care Team (Late st Contact Info) Description 12/13/2023 2:00 PM EDT Office Visit Gynecology/Obstetrics Flavio Tejada [address] [place] [address] Nancy Girard CRNP [address] [place] [phone] 01/17/2024 9:30 AM EDT Nutrition Services Nutrition, Mandy Tejada [address] [place] [address] Yesy Rogel RDN [address] [place] [address] Health Maintenance Due Date Last Done Comments [...] Primary Supervision of high risk , antepartum 31 weeks gestation of state, incidental documented in this encounter
--- OUTSIDE RECORDS SUMMARY | 2024-01-29 19:13 | External Medical Summary | Summary of Care ---
Author Name Unknown Organization [facility] Address [address] [place] [address] Phone [phone] Care Team Providers Care Teamcenter Consultant Name Role Phone Unavailable Primary Care Provider Unavailabl e Encounter Details Date Type Department Care Team (Late st Contact Info) Description 12/01/2023 Telephone Maintenance Supervisor Obstetrics Maternal Medicine, [place] [address] [place] [address] [place], Nurse Maintenance Supervisor [facility] [address] [place] [phone] Allergies No known active allergiesdocumented as of [...] and dinner) 1 Kit 11/15/2023 Active OneTouch Verio In Vitro Strip [...] 11/29/23: MFM ADAPT consult complete. Enrolled in [facility]. Instructions provided to report blood sugars each [...] Recommend nutrition consult with RDN (Registered Dietitian Media Operator). Lifestyle changes are also indicated including optimizing [...] drink = 0.6 oz pur e alcohol) [place] Depression Scale Answer Date Recorded [place] Depression Scale Total 6 07/19/2023 The thought [...] Phone call to patient. Left message on [employer] voice mail. Encouraged patient to return call [facility] to assist with scheduling. Needs 4 week growth scan documented in this encounter Plan of Treatment Upcoming Encounters Date Type Department Care Team (Late st Contact Info) Description 12/13/2023 2:00 PM EDT Office Visit Gynecology/Obstetrics [facility] [address] [place] [address] Nancy Girard CRNP [address] [place] [address] 01/17/2024 9:30 AM EDT [facility] [address] [place] [address] Yesy Rogel RDN [address] [place] [address] Health Maintenance Due Date Last Done Comments [...]
--- OUTSIDE RECORDS SUMMARY | 2024-01-29 19:13 | External Medical Summary | Summary of Care ---
Author Name Unknown Organization [facility] Address [address] [place] [address] Phone [phone] Care Team Providers Care Rear Admiral Name Role Phone Unavailable Primary Care Provider Unavailabl e Reason for Visit * Reason Onset Date Comments Home Monitoring Orders Only 11/30/2023 Encounter Details Date Type Department Care Team (Late st Contact Info) Description 11/30/2023 Home Monitoring Care Coordination [address] [place], [place] [phone] Moises Lopez, RICKY [address] [place] [address] Diet controlled gestational diabetes mellitus (GDM) in third trimester* Allergies No known active allergiesdocumented as of this encounter (statuses as of 11/30/2023) Medications Medication Sig Dispensed Refills Start Date End Date Status 6.75-0.2 MG Oral Tablet Take by mouth. Active [employer] Verio Flex System w/Device KitIndications:Diet controlled gestational diabetes mellitus (GDM) in third trimester Use to test blood sugars 4 times daily (fasting, 1 hour after breakfast, lunch, and dinner) 1 Kit 11/15/2023 Active Pop.ituch [place] In Vitro Strip (Glucose Blood)Indications:Diet controlled gestational diabetes mellitus (GDM) in third trimester Use to test blood sugars 4 times daily (fasting, 1 hour after breakfast, lunch, and dinner) 125 Strip 6 11/15/2023 Active TelestreamTouch Delica Lancets 30GIndications:Diet controlled gestational diabetes mellitus (GDM) in third trimester Use to test blood sugars 4 times daily (fasting, 1 hour after breakfast, lunch, and dinner) 200 Each 6 11/15/2023 Active documented as of this encounter (statuses as of 11/30/2023) Active Problems Problem Noted Date Diagnosed Date [...] Recommend nutrition consult with RDN (Registered Dietitian Medical Record Clerk). Lifestyle changes are also indicated including optimizing [...] as of this encounter (statuses as of 11/30/2023) Immunizations Name Administration Dates Next Due TDAP, Age 7 and older, IM (Adacel) 11/08/2023 documented as of this encounter Social History Tobacco Use Types Packs/Day Years Used Date Smoking Tobacco: Never Smokeless Tobacco: Never Alcohol Use Standard Drinks/Week Comments Never 0 (1 standard drink = 0.6 oz pur e alcohol) [place] Depression Scale Answer Date Recorded [place] Depression Scale Total 6 07/19/2023 The thought [...] as of this encounter Progress Notes * Armen Bermudez, [facility] Swing Tender - 11/30/2023 10:13 AM EDT Patient has been successfully enrolled to the [id number] Diabetes Management in program. Standard alarm settings have been set as follows: Singular glucose level > 200 Singular glucose level < 60 Patient has been advised to take blood sugar four times a day (fasting upon waking, and one hour after each meal). Patient has been oriented to remote patient monitoring, assisted with initial device set-up, and provided with instruction and education regarding the program. Patient understands that this monitoring should not be used as a replacement for emergency and/or urgent care. If patient experiences any urgent symptoms, they are aware to call office/residential remodeling subcontractor provider for additional instructions. In emergency situations, they will report directly to the ED for further evaluation. If you would like to customize the alert parameters and/or instructions for this patient, please let me know and we can have them changed. documented in this encounter Plan of Treatment Upcoming Encounters Date Type Department Care Team (Late st Contact Info) Description 12/01/2023 9:30 AM EDT Office Visit Water Quality Manager OB Maternal Medicine [facility] Debbi Miller [address] [place] [address] Dr [address] [place] [phone] Doris Hopkins, DO [address] [place] [address] 12/01/2023 9:30 AM EDT Imaging [facility] Debbi Miller [address] [place] [address] Dr [address] [place] [address] 12/13/2023 2:00 PM EDT [facility] [address] [facility] [address] Nancy Girard CRNP [address] [place] [address] 01/17/2024 9:30 AM EDT Nutrition Services Mandy [place]anc[place] [address] [facility] [place] [address] Yesy Rogel RDN [address] [place] [address] Health Maintenance Due Date Last Done Comments [...] diabetes mellitus (GDM) in third trimester- Primary documented in this encounter
--- OUTSIDE RECORDS SUMMARY | 2024-01-29 19:13 | External Medical Summary | Summary of Care ---
Author Name Unknown Organization [facility] Address [address] [place] [address] Phone [phone] Care Team Providers Care Internet Media Planner Name Role Phone Unavailable Primary Care Provider Unavailabl e Reason for Visit * Reason Onset Date Comments Med Request 09/14/2023 Pt is requesting med records Encounter Details Date Type Department Care Team (Late st Contact Info) Description 09/14/2023 Telephone Orthopaedics [facility] [address] [facility] [place] [address] Harshal Salinas MD [address] [facility] [place] [place] [address] Med Request (Pt is requesting med records ) Allergies No known active allergiesdocumented as of this encounter (statuses as of 12/14/2023) Medications Medication Sig Dispensed Refills Start Date End Date Status 6.75-0.2 MG Oral Tablet Take by mouth. Active documented as of this encounter (statuses as of 12/14/2023) Active Problems Problem Noted Date Diagnosed Date [...] blood sugars each week for MFM review 12/06/20236648-GTP-nezlxdpy 3 fasting blood sugars (1 elevated) and 4 post prandial values (1 elevated). Messaged to be consistent with testing four times daily and reporting. Review again next week 12/13/[id number]-KIU-tryojc Last Assessment & Plan: CONSIDERATIONS: Reviewed etiology [...] Recommend nutrition consult with RDN (Registered Dietitian Financial Sales Associate). Lifestyle changes are also indicated including optimizing [...] as of this encounter (statuses as of 12/14/2023) Social History Tobacco Use Types Packs/Day Years Used Date Smoking Tobacco: Never Smokeless Tobacco: Never Alcohol Use Standard Drinks/Week Comments Never 0 (1 standard drink = 0.6 oz pur e alcohol) [place] Depression Scale Answer Date Recorded [place] Depression Scale Total 6 07/19/2023 The thought [...] encounter Miscellaneous Notes * Telephone Encounter - Kimberly Le OSA - 09/14/2023 11:18 AM EDT Pt is requesting a release of med records documented in this encounter Plan of Treatment Upcoming Encounters Date Type Department Care Team (Late st Contact Info) Description 12/27/2023 2:15 PM EDT Office Visit Gynecology/Obstetrics Flavio Tejada [address] [place] [address] Nancy Girard CRNP [address] [address] 12/28/2023 9:30 AM EDT Office Visit Assistant Accounting Manager Obstetrics Maternal Medicine, [facility] [address] [facility] [address] Jaz Grace, DO [address] [place] [address] 12/28/2023 9:30 AM EDT Imaging Maternal Medicine Imaging, [facility] [address] [facility] [id number] 01/17/2024 9:30 AM EDT Nutrition Services Nutrition, [facility] [address] [facility] [address] Yesy Rogel, RDN [address] [facility] [place] [address] Health Maintenance Due Date Last Done Comments [...]
--- OUTSIDE RECORDS SUMMARY | 2024-01-29 19:13 | External Medical Summary | Summary of Care ---
Author Name Unknown Organization [facility] Address [address] [place] [address] Phone [phone] Care Team Providers Care Laborer Shipyard Name Role Phone Unavailable Primary Care Provider Unavailabl e Reason for Visit * Reason Comments Return Visit Encounter Details Date Type Department Care Team (Late st Contact Info) Description 01/10/2024 2:15 PM EDT Office Visit Gynecology/Obstetric s Flavio Tjeada [address] [place] [address] Nancy Girard CRNP [address] [place] [address] Supervision of high risk , antepartum*; Diet controlled gestational diabetes mellitus (GDM) in third trimester Allergies No known active allergiesdocumented as of this encounter (statuses as of 01/10/2024) Medications Medication Sig Dispensed Refills Start Date End Date Status 6.75-0.2 MG Oral Tablet Take by mouth. Active Millennium LaboratoriesTouch Verio Flex System w/Device KitIndications: t controlled gestational diabetes mellitus (GDM) in third trimester Use to test blood sugars 4 times daily (fasting, 1 hour after breakfast, lunch, and dinner) 1 Kit 11/15/2023 Active OneTouch Delica Lancets 30GIndications: t controlled gestational diabetes mellitus (GDM) in third trimester Use to test blood sugars 4 times daily (fasting, 1 hour after breakfast, lunch, and dinner) 200 Each 6 11/15/2023 Active OneTouch Verio In Vitro Strip (Glucose Blood)Indications: Diet controlled gestational diabetes mellitus (GDM) in third trimester Use to test blood sugars 4 times daily (fasting, 1 hour after breakfast, lunch, and dinner) 125 Strip 6 01/10/2024 Active OneSoyuch Verghulam In Vitro Strip (Glucose Blood)Indications: Diet controlled gestational diabetes mellitus (GDM) in third trimester Use to test blood sugars 4 times daily (fasting, 1 hour after breakfast, lunch, and dinner) 125 Strip 6 11/15/2023 01/10/2024 Discontinued (Refill) documented as of this encounter (statuses as of 01/10/2024) Active Problems Problem Noted Date Diagnosed Date [...] blood sugars each week for MFM review 12/06/[id number]-ugebuhzh 3 fasting blood sugars (1 elevated) and 4 post prandial values (1 elevated). Messaged to be consistent with testing four times daily and reporting. Review again next week 12/13/[id number]-lexcxk 12/20/23: RPM reviewed; Stable 12/27/[id number]-rhuulz. Multiple missed readings. Sent message asking her to be consistent with testing and reporting 01/03/[id number]-TYI-yqhnap 01/10/[id number]-LPW-oiidwybfb via raquel and messaging. Stable. Last Assessment & Plan: Working with [facility]. Please encourage Kaleigh to send sugars. Supervision of high risk , antepartum 0 07/19/2023 Estimated Date of Delivery Comme nts Yes 02/01/2024 Based on last me nstrual period of 04/27/2023 documented as of this encounter (statuses as of 01/10/2024) Immunizations Name Administration Dates Next Due TDAP, Age 7 and older, IM (Adacel) 11/08/2023 documented as of this encounter Social History Tobacco Use Types Packs/Day Years Used Date Smoking Tobacco: Never Smokeless Tobacco: Never Alcohol Use Standard Drinks/Week Comments Never 0 (1 standard drink = 0.6 oz pur e alcohol) [place] Depression Scale Answer Date Recorded [place] Depression Scale Total 6 07/19/2023 The thought [...] Sign Reading Time Taken Comments Blood Pressure 132/82 01/10/2024 2:06 PM EDT Pulse - - Temperature - - Respiratory Rate - - Oxygen Saturation - - Inhaled Oxygen Concentration - - Weight 93.9 kg (207 lb) 01/10/2024 2:06 PM EDT Height - - Body Mass Index 32.42 11/24/2023 8:33 AM EDT documented in this encounter Progress Notes * Nancy Girard CRNP - 01/10/2024 2:39 PM EDT 36w6d Her mother was denied access to the to help with delivery. Asking for letter to Senator Carlos Anson's office- letter given. She is checking blood sugars as directed, reporting [facility]. Baby is active. No contractions, bleeding, LOF. GBS today. Racehorse Trainer Documentation Provider requested boiler or engine operator. Name of boiler or engine operator: RICKY Duran * Stacie Rodriguez CMA - 01/10/2024 2:06 PM EDT 36w6d Denies any concerns. GBS swab today documented in this encounter Plan of Treatment Upcoming Encounters Date Type Department Care Team (Late st Contact Info) Description 01/17/2024 8:45 AM EDT Office Visit Gynecology/Obstetrics [facility] [address] [place] [address] Stephen Mclaughlin MD [address] [place] [address] 01/17/2024 9:30 AM EDT Nutrition Services Nutrition, [facility] [address] [place] [address] Yesy Rogel RDN [address] [place] [address] Pending Results Name Type Priority Associated Diagnoses Date /Time GROUP B STREP CULTURE/PCR Lab Routine Supervision of high risk , antepartum 01/10/2024 2:23 PM EDT Scheduled Orders Name Type Priority Associated Diagnoses Orde r Schedule GROUP B STREP CULTURE/PCR Lab Routine Supervision of high risk , antepartum Expected: 01/10/2024, Expires: 01/09/2025 Health Maintenance Due Date Last Done Comments [...]
--- OUTSIDE RECORDS SUMMARY | 2024-01-29 19:13 | External Medical Summary ---
Author Name Unknown Address Unknown Organization K01:[facility] [place] [facility] [place] [address] Laboratory Report Ordering Provider Test Date Status DOMI CALDERA 01/10/2024 14:23:04 Final Observation Date Value Abnormality Reference (Units ) Status Streptococcus agalactiae DNA [Presence] in Specimen by DERREK with probe detection 01/10/2024 14:23:04 Negative Negative Final No Group B Streptococcus det ected by culture-enhanced PCR (amplified probe). GBS GBSCT - [facility] 01/10/2024 14:23:04 0.0 Final GBS SPCCT - [facility] 01/10/2024 14:23:04 30.7 Final Performing Location [facility] [place] [address] [place] [address]
--- OUTSIDE RECORDS SUMMARY | 2024-01-29 19:14 | External Medical Summary | Summary of Care ---
Author Name Unknown Organization [facility] Address [address] [place] [facility] [place] [address] Phone [phone] Care Team Providers Care Allergist/Immunologist Name Role Phone Unavailable Primary Care Provider Unavailabl e Reason for Visit * Reason Comments Return Visit Encounter Details Date Type Department Care Team (Late st Contact Info) Description 11/23/2023 11:45 AM EDT Office Visit Gynecology/Obstetric s Flavio Tejada [address] [place] [address] Nancy Girard CRNP [address] [place] [address] Supervision of high risk , antepartum*; Diet controlled gestational diabetes mellitus (GDM) in third trimester Allergies No known active allergiesdocumented as of this encounter (statuses as of 11/23/2023) Medications Medication Sig Dispensed Refills Start Date End Date Status 6.75-0.2 MG Oral Tablet Take by mouth. Active [employer] Verio Flex System w/Device KitIndications:Diet controlled gestational diabetes mellitus (GDM) in third trimester Use to test blood sugars 4 times daily (fasting, 1 hour after breakfast, lunch, and dinner) 1 Kit 11/15/2023 Active Spotwishuch Verio In Vitro Strip (Glucose Blood)Indications:Diet controlled gestational diabetes mellitus (GDM) in third trimester Use to test blood sugars 4 times daily (fasting, 1 hour after breakfast, lunch, and dinner) 125 Strip 6 11/15/2023 Active NegotiantTouch Delica Lancets 30GIndications:Diet controlled gestational diabetes mellitus (GDM) in third trimester Use to test blood sugars 4 times daily (fasting, 1 hour after breakfast, lunch, and dinner) 200 Each 6 11/15/2023 Active documented as of this encounter (statuses as of 11/23/2023) Active Problems Problem Noted Date Diagnosed Date Diet controlled gestational diabetes mellitus (GDM) in third trimester 11/14/2023 Overview: Diagnosed at 29 weeks Nutrition consult ordered Lab Results Component Value Date/Time 50-G GESTATIONAL GLUCOSE, 1 HOUR - [facility] 165 (H) 11/08/2023 11:36 AM 100-G GESTATIONAL GLUCOSE, 1 HOUR - [facility] 171 11/14/2023 10:20 AM 100-G GESTATIONAL GLUCOSE, 2 HOUR - [facility] 156 (H) 11/14/2023 11:31 AM 100-G GESTATIONAL GLUCOSE, 3 HOUR - [facility] 114 11/14/2023 12:25 PM 100-G GESTATIONAL GLUCOSE, FASTING - [facility] 99 (H) 11/14/2023 09:16 AM Supervision of high risk , antepartum 0 07/19/2023 Estimated Date of Delivery Comme nts Yes 02/01/2024 Based on last me nstrual period of 04/27/2023 documented as of this encounter (statuses as of 11/23/2023) Immunizations Name Administration Dates Next Due TDAP, Age 7 and older, IM (Adacel) 11/08/2023 documented as of this encounter Social History Tobacco Use Types Packs/Day Years Used Date Smoking Tobacco: Never Smokeless Tobacco: Never Alcohol Use Standard Drinks/Week Comments Never 0 (1 standard drink = 0.6 oz pur e alcohol) [place] Depression Scale Answer Date Recorded [place] Depression Scale Total 6 07/19/2023 The thought [...] Sign Reading Time Taken Comments Blood Pressure 124/76 11/23/2023 11:29 AM EDT Pulse - - Temperature - - Respiratory Rate - - Oxygen Saturation - - Inhaled Oxygen Concentration - - Weight 93 kg (205 lb) 11/23/2023 11:29 AM EDT Height 170.2 cm (5' 7") 11/23/2023 11:29 AM EDT Body Mass Index 32.11 11/23/2023 11:29 AM EDT documented in this encounter Progress Notes * Nancy Girard CRNP - 11/23/2023 11:55 AM EDT 30w Dx with GDM since last visit, nursing staff showed pt how to use glucometer today during visit. Sheis disappointed that she has GDM, feels she is keeping herself as healthy as she can. She reports some itching of her legs, not feet or hands. She is having blurry vision in the mornings, has been occurring for several months. Has appt with eye doctor. BP stable, blood sugar 97 today. Meeting with bankruptcy legal assistant tomorrow, [facility]T program next week. RICKY Roberson documented in this encounter Nursing Notes * Allie Gleason LPN - 11/23/2023 11:32 AM EDT 30w0d Itchy legs. Has glucometer supplies today, needs assistance with using. Reports blurry vision, no OWENS. Has not been to an eye doctor in awhile. documented in this encounter Plan of Treatment Upcoming Encounters Date Type Department Care Team (Late st Contact Info) Description 11/24/2023 8:30 AM EDT Nutrition Services Nutrition, Mandy Tejada [address] [place] [address] Yesy Rogel, CASSIDYN [address] [address] 11/29/2023 1:45 PM EDT Telemedicine Surface Room Shop Optician Obstetrics Maternal Medicine [facility], [place] [address] [facility] [place] [phone] Moises Lopez CRNP [address] [address] 12/01/2023 9:30 AM EDT Office Visit Surface Room Shop Optician OB Maternal Medicine [facility] Debbi Miller [address] [place] [address] [address] [facility] [address] Doris Hopkins, DO [address] [place] [address] 12/01/2023 9:30 AM EDT Imaging Maternal Medicine [facility] Debbi Miller [address] [place] [address] Dr [address] [place] [address] 12/13/2023 2:00 PM EDT Office Visit Gynecology/Obstetrics Flavio Tejada [address] [place] [address] Nancy Girard CRNP [address] [place] [address] [address] Health Maintenance Due Date Last Done Comments Depression Screening 2006 Hepatitis B Vaccine (1 of 3 - 19+ 3-dose series) 2013 COVID-19 Vaccine (2022-2 4 season) 2023 Influenza Vaccine (FLU shot) [...]
--- OUTSIDE RECORDS SUMMARY | 2024-01-29 19:14 | External Medical Summary | Summary of Care ---
Author Name Unknown Organization [facility] Address [address] [place] [address] Phone [phone] Care Team Providers Care Clipper Automatic Name Role Phone Unavailable Primary Care Provider Unavailabl e Reason for Visit * Reason Comments Outpatient Testing Encounter Details Date Type Department Care Team (Late st Contact Info) Description 11/14/2023 9:00 AM EDT Laboratory Laboratory, [facility] [address] [place] [address] [facility] [address] [place] [address] Abnormal glucose tolerance in mother complicating Allergies No known active allergiesdocumented as of this encounter (statuses as of 11/14/2023) Medications Medication Sig Dispensed Refills Start Date End Date Status 6.75-0.2 MG Oral Tablet Take by mouth. Active documented as of this encounter (statuses as of 11/14/2023) Active Problems Problem Noted Date Diagnosed Date , normal first 07/19/2023 Estimated Date of Delivery Comme nts Yes 02/01/2024 Based on last me nstrual period of 04/27/2023 documented as of this encounter (statuses as of 11/14/2023) Immunizations Name Administration Dates Next Due TDAP, Age 7 and older, IM (Adacel) 11/08/2023 documented as of this encounter Social History Tobacco Use Types Packs/Day Years Used Date Smoking Tobacco: Never Smokeless Tobacco: Never Alcohol Use Standard Drinks/Week Comments Never 0 (1 standard drink = 0.6 oz pur e alcohol) [place] Depression Scale Answer Date Recorded [place] Depression Scale Total 6 07/19/2023 The thought [...] Description 11/23/2023 11:45 AM EDT Office Visit Gynecology/Obstetrics [facility] [address] [place] [address] Nancy Girard CRNP [address] [place] [address] Pending Results Name Type Priority Associated Diagnoses Date /Time GESTATIONAL GLUCOSE TOLERANCE, 3 HOUR Lab Routine Abnormal glucose tolerance in mother complicating 11/14/2023 9:16 AM EDT 100-G GESTATIONAL GLUCOSE, 1 HOUR Lab Routine Abnormal glucose tolerance in mother complicating 11/14/2023 10:20 AM EDT Scheduled Orders Name Type Priority Associated Diagnoses Orde r Schedule 100-G GESTATIONAL GLUCOSE, 2 HOUR Lab Routine Abnormal glucose tolerance in mother complicating Ordered: 11/14/2023 Health Maintenance Due Date Last Done Comments Depression Screening 2006 Hepatitis B Vaccine (1 of 3 - 19+ 3-dose series) 2013 COVID-19 Vaccine (1 - 2022-2 4 season) 2022 Influenza Vaccine (FLU shot) (#1) 2023 Pap [...] Not on filedocumented as of this encounter Procedures Procedure Name Priority Date/Time Associated Diagnosis Comments 100-G GESTATIONAL GLUCOSE, FASTING Routine 11/14/2023 9:16 AM EDT Abnormal glucose tolerance in mother complicating documented in this encounter Results * (ABNORMAL) 100-G GESTATIONAL GLUCOSE, FASTING (11/14/2023 9:16 AM EDT) 100-g Gestational Glucose, Fasting 99(H) 70 - 94 mg/dL 11/14/2023 10:37 AM EDT [facility] Blood Venous blood specimen / Unknown Venipuncture / Unknown 11/14/2023 9:16 AM EDT 11/14/2023 9:16 AM EDT Narrative LAB[facility]ATORY [facility] 57-10 - 11/14/2023 10:37 AM EDT Based on ACOG guideline, gestational diabetes mellitus is diagnosed when any of the following is met: Fasting is greater than or equal to 95 mg/dL 1 hour is greater than or equal to 180 mg/dL 2 hour is greater than or equal to 155 mg/dL 3 hour is greater than or equal to 140 mg/dL Nancy GARCÍA LAB BLOOD ORDERABLES [facility] [place] [facility]10 [address] [facility] [place] [address] documented in this encounter Visit Diagnoses Diagnosis Abnormal glucose tolerance in mother complicating Abnormal maternal glucose tolerance, complicating , childbirth, or the puerperium, unspecified as to episode of care documented in this encounter
--- OUTSIDE RECORDS SUMMARY | 2024-01-29 19:14 | External Medical Summary | Summary of Care ---
Author Name Unknown Organization [facility] Address [address] [place] [address] Phone [phone] Care Team Providers Care Skiver Uppers Or Linings Name Role Phone Unavailable Primary Care Provider Unavailabl e Reason for Visit * Reason Comments Outpatient Testing Encounter Details Date Type Department Care Team (Late st Contact Info) Description 11/14/2023 9:00 AM EDT Laboratory Laboratory, [facility] [address] [place] [address] [facility] [address] [place] [address] Abnormal glucose tolerance in mother complicating Allergies [...] drink = 0.6 oz pur e alcohol) [place] Depression Scale Answer Date Recorded [place] Depression Scale Total 6 07/19/2023 The thought [...] 11/23/2023 11:45 AM EDT Office Visit Gynecology/Obstetrics [facility] [address] [place] [address] Nancy Girard CRNP [address] [place] [address] Pending Results Name Type Priority Associated Diagnoses [...] glucose tolerance in mother complicating Ordered: 11/14/2023 100-G GESTATIONAL GLUCOSE, 3 HOUR Lab Routine Abnormal glucose tolerance in mother complicating Ordered: 11/14/2023 Health Maintenance Due Date Last Done Comments Depression Screening 2006 Hepatitis B Vaccine (1 of 3 - 19+ 3-dose series) 2013 COVID-19 Vaccine (2022-2 4 season) 2022 Influenza Vaccine (FLU shot) [...] 94 mg/dL 11/14/2023 10:37 AM EDT [facility] [place] [facility]10 Blood Venous blood specimen / Unknown Venipuncture / Unknown 11/14/2023 9:16 AM EDT 11/14/2023 9:16 AM EDT Narrative [facility] [place] [facility]-10 - 11/14/2023 10:37 AM EDT [...] mg/dL Nancy GARCÍA LAB BLOOD ORDERABLES LAB[facility]ATORY [facility] 57-10 [address] [facility] [place] [address] documented in this encounter Visit Diagnoses Diagnosis Abnormal glucose tolerance in mother complicating Abnormal maternal glucose tolerance, complicating , childbirth, or the puerperium, unspecified as to episode of care documented in this encounter
--- OUTSIDE RECORDS SUMMARY | 2024-01-29 19:14 | External Medical Summary ---
Author Name Unknown Address Unknown Organization K0G:LABORATORY [facility] - [address] [place] [address] Laboratory Report Ordering Provider Test Date Status RONEN CALDERAHARITHA 11/14/2023 09:16:42 Final Based on ACOG guideline, ges tational diabetes mellitus is diagnosed when any of the following is met:
Fasting is greater than or equal to 95 mg/dL
1 hour is greater than or equal to 180 mg/dL
2 hour is greater than or equal to 155 mg/dL
3 hour is greater than or equal to 140 mg/dL Observation Date Value Abnormality Reference (Units ) Status Glucose, fasting 11/14/2023 09:16:42 99 Above high no rmal 70-94 (mg/dL) Final Performing Location LABORATORY [facility] 57-1 0 - [address] [place] [address]
--- OUTSIDE RECORDS SUMMARY | 2024-01-29 19:14 | External Medical Summary | Summary of Care ---
Author Name Unknown Organization [facility] Address [address] [place] [address] Phone [phone] Care Team Providers Care Aboriginal Ceremonial Celebrant Name Role Phone Unavailable Primary Care Provider Unavailabl e Encounter Details Date Type Department Care Team (Late st Contact Info) Description 11/08/2023 Telephone Gynecology/Obstetrics Flavio Tejada [address] [facility] [place] [address] Nancy Girard CRNP [address] [facility], [place] [address] Allergies No known active allergiesdocumented as of this encounter (statuses as of 11/08/2023) Medications Medication Sig Dispensed Refills Start Date End Date Status 6.75-0.2 MG Oral Tablet Take by mouth. Active documented as of this encounter (statuses as of 11/08/2023) Active Problems Problem Noted Date Diagnosed Date , normal first 07/19/2023 Estimated Date of Delivery Comme nts Yes 02/01/2024 Based on last me nstrual period of 04/27/2023 documented as of this encounter (statuses as of 11/08/2023) Immunizations Name Administration Dates Next Due TDAP, Age 7 and older, IM (Adacel) 11/08/2023 documented as of this encounter Social History Tobacco Use Types Packs/Day Years Used Date Smoking Tobacco: Never Smokeless Tobacco: Never Alcohol Use Standard Drinks/Week Comments Never 0 (1 standard drink = 0.6 oz pur e alcohol) Collins Depression Scale Answer Date Recorded Collins Depression Scale Total 6 07/19/2023 The thought [...] encounter Miscellaneous Notes * Telephone Encounter - Nova Almodovar RN - 11/08/2023 4:23 PM EDT Patient called back given results below. Patient verbalized understanding. Instructions given for 3hour glucose and patient verbalized understanding. Please contact patient to help schedule this labtest. * Telephone Encounter - Nova Almodovar RN - 11/08/2023 2:47 PM EDT Attempted to call patient. No answer. LVM to return call. * Telephone Encounter - Nancy Girard CRNP - 11/08/2023 2:33 PM EDT Please notify pt that glucola elevated (165). Needs 3hr GTT. Orders placed. documented in this encounter Plan of Treatment Upcoming Encounters Date Type Department Care Team (Late st Contact Info) Description 11/23/2023 11:45 AM EDT Office Visit Gynecology/Obstetrics Flavio Tejada [address] [place] [address] Nancy Girard CRNP [address] [place] [address] Scheduled Orders Name Type Priority Associated Diagnoses Orde r Schedule GESTATIONAL GLUCOSE TOLERANCE, 3 HOUR Lab Routine Abnormal glucose tolerance in mother complicating Expected: 11/09/2023 (Approximate), Expires: 11/07/2024 Health Maintenance Due Date Last Done Comments Depression Screening 2006 Hepatitis B Vaccine (1 of 3 - 19+ 3-dose series) 2013 COVID-19 Vaccine (2022-2 4 season) 2022 Influenza Vaccine (FLU shot) (#1) 2023 Pap Smear 07/18/2026 07/19/2023 DTaP,Tdap,and Td Vaccines (2 - Td or Tdap) 11/07/2033 11/08/2023 HPV (Gardasil) Vaccine Aged [...] as of this encounter Visit Diagnoses Diagnosis Abnormal glucose tolerance in mother complicating - Primary Abnormal maternal glucose tolerance, complicating , childbirth, or the puerperium, unspecified as to episode of care documented in this encounter
--- OUTSIDE RECORDS SUMMARY | 2024-01-29 19:14 | External Medical Summary | Summary of Care ---
Author Name Unknown Organization [facility] Address [address] [place] [address] Phone [phone] Care Team Providers Care Jewelry Casting Model Maker Name Role Phone Unavailable Primary Care Provider Unavailabl e Encounter Details Date Type Department Care Team (Late st Contact Info) Description 11/08/2023 Telephone Gynecology/Obstetrics Flavio Tejada [address] [facility] [place] [address] Nancy Girard CRNP [address] [facility] [place] [address] Allergies No known active allergiesdocumented as of this encounter (statuses as of 11/13/2023) Medications Medication Sig Dispensed Refills Start Date End Date Status 6.75-0.2 MG Oral Tablet Take by mouth. Active documented as of this encounter (statuses as of 11/13/2023) Active Problems Problem Noted Date Diagnosed Date , normal first 07/19/2023 Estimated Date of Delivery Comme nts Yes 02/01/2024 Based on last me nstrual period of 04/27/2023 documented as of this encounter (statuses as of 11/13/2023) Immunizations Name Administration Dates Next Due TDAP, Age 7 and older, IM (Adacel) 11/08/2023 documented as of this encounter Social History Tobacco Use Types Packs/Day Years Used Date Smoking Tobacco: Never Smokeless Tobacco: Never Alcohol Use Standard Drinks/Week Comments Never 0 (1 standard drink = 0.6 oz pur e alcohol) Palmetto Depression Scale Answer Date Recorded Palmetto Depression Scale Total 6 07/19/2023 The thought [...] encounter Miscellaneous Notes * Telephone Encounter - Natty Parr OSA - 11/13/2023 9:50 AM EDT Patient scheduled. * Telephone Encounter - Nova Almodovar RN [...] Description 11/14/2023 9:00 AM EDT Laboratory Laboratory, [facility] [address] [facility] [place] [phone] [facility] [address] [place] [address] 11/23/2023 11:45 AM EDT Office Visit Gynecology/Obstetrics [facility] [address] [place] [address] Nancy Girard CRNP [address] [place] [address] Scheduled Orders Name Type Priority Associated Diagnoses [...]
--- OUTSIDE RECORDS SUMMARY | 2024-01-29 19:14 | External Medical Summary | Summary of Care ---
Author Name Unknown Organization [facility] Address [address] [place] [address] Phone [phone] Care Team Providers Care Dough Mixer Helper Name Role Phone Unavailable Primary Care Provider Unavailabl e Reason for Visit * Reason Comments DSMT INITIAL * Evaluate & Treat - Unlimited Visits (Within 10 days (routine)) - Pending Review Specialty Diagnoses / Procedures Referred By Nils kemp Referred To Contact Vba Developer / Nutrition Services Diagnoses Diet controlled gestational diabetes mellitus (GDM) in third trimester Nancy Girard CRNP [address] [place] [facility] [place] [address] Referral ID Status Reason Start Date Expiration Date Visits Requested Visits Authorized [id number] Pending Review Specialty Services Required 11/15/[phone] Encounter Details Date Type Department Care Team (Latest Contact Info) Description 11/24/2023 8:30 AM EDT Nutrition Services Nutrition [facility] [address] [place] [address] Yesy Rogel RDN [address] [place] [facility] [place] [address] Diet controlled gestational diabetes mellitus (GDM) in third trimester*; Supervision of high risk , antepartum Allergies No known active allergiesdocumented as of this encounter (statuses as of 11/24/2023) Medications Medication Sig Dispensed Refills Start Date [...] as of this encounter (statuses as of 11/24/2023) Active Problems Problem Noted Date Diagnosed Date [...] as of this encounter (statuses as of 11/24/2023) Immunizations Name Administration Dates Next Due TDAP, Age 7 and older, IM (Adacel) 11/08/2023 documented as of this encounter Social History Tobacco Use Types Packs/Day Years Used Date Smoking Tobacco: Never Smokeless Tobacco: Never Alcohol Use Standard Drinks/Week Comments Never 0 (1 standard drink = 0.6 oz pur e alcohol) Beaver Depression Scale Answer Date Recorded Beaver Depression Scale Total 6 07/19/2023 The thought [...] - Inhaled Oxygen Concentration - - Weight 92.1 kg (203 lb 1.6 oz) 11/24/2023 8:33 A M EDT Height 170.2 cm (5' 7") 11/24/2023 8:33 AM EDT Body Mass Index 31.81 11/24/2023 8:33 AM EDT documented in this encounter Patient Instructions * Patient Instructions* Yesy Rogel RDN - 11/24/2023 9:22 AM EDT Participant will eat 5-6 small meals and snacks throughout the day. Try to eat at least every 3-4 hours. Aim for 2-3 servings of carb's at meals and 1-2 servings at snacks. documented in this encounter Progress Notes * Yesy Rogel RDN - 11/24/2023 8:33 AM EDT DIABETES SELF-MANAGEMENT TRAINING/INITIAL NOTE Name: Kaleigh Chacon Date: 11/24/2023 Participant was seen face to face in the clinic. She is accompanied by her , Art. Last order of DIABETES MANAGEMENT EDUCATION (ADA) [...] you like to discuss in your appointment: what food to take in and how to lose weight In your words, what is diabetes? When you have high blood sugar and it's affected by a lot of carb's Do you know the risks of uncontrolled diabetes? No Do you believe that diabetes can be controlled? Yes Are you ready to make small changes to help with diabetes self-management: Yes What type of diabetes do you have? Gestational Diabetes Mellitus: Are you aware of the post- glucose screening recommendations? No Diabetes diagnosis year: 2023 Do you have a family history of diabetes? No Have you had any previous diabetes education? No Support systems: Spouse Barriers to care: None Special Needs: None Psychosocial Screening: Lately have you been feeling down, depressed or hopeless most of the day? No How Do You Manage Stress? Asked/Not Answered Food Insecurity: Within the past 12 months, I worried whether our food would run out before we got money to buy more. No Within the past 12 months, the food we bought just did not last and we did not have money to buy more. No Sleep Health: Addressed - How many hours are you sleeping during the night? 7-8 hours Do you have difficulty falling or staying asleep? No Do you snore? Sometimes Are you waking up during the night with symptoms of low glucose levels (shaky, sweaty, nightmares)?No Are you waking up during the night to urinate frequently? Yes Diabetes Medications: None Monitoring blood glucose, interpreting and using results Self-Monitoring Blood Glucose Source of Information: Participant verbally reviewed from memory Frequency of tests: just started checking FBS 94, 91 Has not yet started checking post prandial glucose levels yet. Hypoglycemia?: No Diet: Describes typical diet history/24-hour recall Breakfast: 6-7 AM Telugu yogurt, brown bread, sometimes a smoothie Snacks: 10:30 AM brown bread, eggs, and oatmeal with non-fat milk and sometimes avocado, water Lunch: 3:30 PM rice and chicken or beef stew or joluf rice, water Snacks: none Dinner: 8-10 PM corn dough with cassava with chicken soup or PB soup or palm nut soup, water Snacks: sometimes a smoothie-broccoli, spinach, natalie seeds, green apple with water Drinks: water, coconut water Restaurant meals: twice a week Alcohol: None Tobacco Use: No Weight management review: Wt Readings from Last 6 Encounters: 11/24/23 92.1 kg (203 lb 1.6 oz) 11/23/23 93 kg (205 lb) 11/08/23 93 kg (205 lb) 10/11/23 89.4 kg (197 lb) 09/13/23 86.3 kg (190 lb 3.2 oz) 08/16/23 83 kg (183 lb) Recent weight changes: increased 20 lbs in past 3 1/2 months per EPIC review 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 Dyslipidemia: No results found for: "LDL" No results found for: "TRIG", "CHOL", "HDL" Gestational Diabetes Mellitus Participant Kidney function review: Lab Results Component Value Date/Time ESTIMATED GLOMERULAR FILTRATION RATE - [facility] >90 01/03/2023 08:45 AM No results found for: "ALBUMIN / CREATININE RATIO", "ALBUMIN / CREATININE RATIO, URINE - [facility]" No results found for: "PROTEIN/ CREATININE RATIO", "PROTEIN/ CREATININE RATIO, URINE - [facility]" Gestational Diabetes Mellitus Participant DSMT Initial Visit Assessment of Content Areas: Choose the answer that represents the participant's competency in each area. All need to be assessed at initial. Areas taught must match intervention. If content area not assessed and/or intervened today, it will be deferred to future session. Diabetes disease process and treatment process: Needs instruction (1) Incorporating nutrition management into lifestyle: Needs instruction (1) Incorporating physical activity into lifestyle: Needs instruction (1) Using medications safely: Needs instruction (1) Monitoring blood glucose, interpreting and using results: Needs review (2) Prevention, detection, and treatment of acute complications: Needs instruction (1) Prevention, detection, and treatment of chronic complications: Needs instruction (1) Developing strategies to address psychosocial issues: Needs instruction (1) Developing strategies to promote health/change behavior: Needs instruction (1) DSMT/ Diabetes MNT intervention: Pathophysiology: Defined disease process. Participant denies family history of diabetes. Discussed issue with GDM and insulin resistance. Nutrition: Educated on the effects of macronutrients on diabetes control and diabetes complications. Taught and had participant identify foods that contain carbohydrates. Educated on using ADA plate method. GDM nutrition: Taught participant how to read a food label. Stressed importance of avoiding sugar sweetened beverages, fruit juices. Encouraged bedtime snack 8-10 hours before fasting test the next day. Emphasized importance of eating consistent carb's throughout the day and monitoring portion sizes of high-carb foods. Reviewed recommended portion sizes of some high-carb foods with her. Encouraged her to aim for 2-3 servings of carb's at meals and 1-2 servings at snacks. Encouraged her to eat every 3-4 hours. Physical Activity: Educated on the role of physical activity on glucose control. Discussed benefit of activity on post prandial glucose levels. Monitoring: Participant notes she was educated on how to check glucose levels yesterday during her OB appointment. Discussed using a new lancets for each check. States she will be rotating fingers ofinjection. Encouraged her not to use business continuity director prior to checking. Reviewed recommended method of disposal of used lancets. She is able to verbalize recommended target ranges for fasting and post prandial glucose levels. Chronic Complications: Reviewed potential complications of uncontrolled glucose levels in . Emphasized keeping glucose levels at or below target to keep complications low. Promote health/Change behavior: : Reviewed importance of glucose screening after having gestational diabetes. Educated on possible effects of hyper/hypoglycemia on the fetus and mother. verbalized concern of risk of diabetes for pt and baby. Discussed that continuing to eat healthy is optimal. Also noted that Hgb A1c level will be checked as recommended and her levels will be monitored due to increased risk of diabetes later. Participant Selected Behavioral Objective: Nutrition: To improve blood glucose control I will eat 5-6 small meals and snacks throughout the day. Try to eat at least every 3-4 hours. Aim for 2-3 servings of carb's at meals and 1-2 servings at snacks. Recommended Medication Changes: No changes. Education materials given to participant/caregiver and reviewed during today's visit: Understanding CHO's Planning Healthy Meals General GDM info Diabetes Self-Management Support:: Websites: www.diabetes.org Possible Future Topics: Content areas that were not assessed in first visit: All content areas have been assessed. Time Spent With Patient: Time in: 8:32 AM Time out: 9:28 AM Billing: DSMT: 30 Minutes Plan for Return: 01/17/2024 Participant provided with contact information for Diabetes Care and Mercury Recoverer. All [facility] providers within the system are able to see [place] [employer] education and outcomes within the participant's electronic medical record. Yesy Rogel RDN, NUTRITION SERVICES [facility] Diabetes Care and Mercury Recoverer documented in this encounter Miscellaneous Notes * Pt Handout (on AVS) - Yesy Rogel RDN - 11/24/2023 9:05 AM EDT Images from the original note were not included. [id number] Understanding Carbohydrates Just like a car needs [...] of rice 4 to 6 crackers 1/2 Latvian muffin 1/2 cup of black beans 1/4 of a large baked potato (3 ounces) 2/3 cup of plain fat-free yogurt 1 cup of soup 1/2 cup of casserole 6 chicken nuggets [id number] brownie or cake without frosting 2 small [...] carbs you should have. Last Reviewed Date: 05/19/[id number] The [employer]. All rights reserved. This information is not intended as a substitute for professional medical care. Always follow your healthcare professional's instructions. documented in this encounter Plan of Treatment Upcoming Encounters Date Type Department Care Team (Late st Contact Info) Description 11/29/2023 1:45 PM EDT Telemedicine Outboard System Operator Obstetrics [facility] [address] [facility] [place] [phone] Moises Lopez CRNP [address] [address] 12/01/2023 9:30 AM EDT Office Visit Outboard System Operator OB Maternal Medicine [facility] Debbi Miller [address] [place] [address] [address] [place] [address] Doris Hopkins, [address] [place] [address] 12/01/2023 9:30 AM EDT Imaging Maternal Medicine [facility] Debbi Miller [address] [place] [address] Dr [address] [place] [address] 12/13/2023 2:00 PM EDT Office Visit Gynecology/Obstetrics [facility] [address] [facility] [place] [address] Nancy Girard CRNP [address] [facility] [place] [address] 01/17/2024 9:30 AM EDT [facility] [place] [address] Yesy Rogel RDN [address] [place], [place] [id number] Scheduled Referrals Name Type Priority Associated Diagnoses Orde r Schedule DIABETES MANAGEMENT EDUCATION (ADA) REFERRAL Referral Within 10 days (routine) Diet controlled gestational diabetes mellitus (GDM) in third trimester Ordered: 11/15/2023 Health Maintenance Due Date Last Done Comments Depression Screening 2006 Hepatitis B Vaccine (1 of 3 - 19+ 3-dose series) 2013 COVID-19 Vaccine (1 - 2022-2 4 season) 2023 Influenza Vaccine [...]
--- OUTSIDE RECORDS SUMMARY | 2024-01-29 19:14 | External Medical Summary | Summary of Care ---
Author Name Unknown Organization [facility] Address [address] [place] [address] Phone [phone] Care Team Providers Care Director Of Academic Name Role Phone Unavailable Primary Care Provider Unavailabl e Reason for Visit * Reason Comments Outpatient Testing Encounter Details Date Type Department Care Team (Late st Contact Info) Description 11/14/2023 9:00 AM EDT Laboratory Laboratory, [facility] [address] [place] [address] [facility] [address] [place] [address] Abnormal glucose tolerance in mother complicating Allergies [...] drink = 0.6 oz pur e alcohol) Pierron Depression Scale Answer Date Recorded Pierron Depression Scale Total 6 07/19/2023 The thought [...] 11/23/2023 11:45 AM EDT Office Visit Gynecology/Obstetrics [facility] [address] [place] [address] Nancy Girard CRNP [address] [place] [address] Pending Results Name Type Priority Associated Diagnoses Date /Time GESTATIONAL GLUCOSE TOLERANCE, 3 HOUR Lab Routine Abnormal glucose tolerance in mother complicating 11/14/2023 9:16 AM EDT 100-G GESTATIONAL GLUCOSE, 1 HOUR Lab Routine Abnormal glucose tolerance in mother complicating 11/14/2023 10:20 AM EDT 100-G GESTATIONAL GLUCOSE, 2 HOUR Lab Routine Abnormal glucose tolerance in mother complicating 11/14/2023 11:31 AM EDT Scheduled Orders Name Type Priority Associated Diagnoses Orde r Schedule 100-G GESTATIONAL GLUCOSE, 3 HOUR Lab Routine [...] BLOOD ORDERABLES [facility] [place] [address] [facility] [place] [address] documented in this encounter Visit Diagnoses Diagnosis Abnormal glucose tolerance in mother complicating Abnormal maternal glucose tolerance, complicating , childbirth, or the puerperium, unspecified as to episode of care documented in this encounter
--- OUTSIDE RECORDS SUMMARY | 2024-01-29 19:14 | External Medical Summary ---
Author Name Unknown Address Unknown Organization K0G[facility] [address] [place] [id number] Laboratory Report Ordering Provider Test Date Status DOMI CALDERA 11/14/2023 10:20:00 Final Observation Date Value Abnormality Reference (Units ) Status Glucose [Mass/volume] in Serum or Plasma --1 hour post dose glucose 11/14/2023 10:20:00 171 70-179 (mg/dL) Final Performing Location LABORATORY [facility] [address] - [address] [place] [address]
--- OUTSIDE RECORDS SUMMARY | 2024-01-29 19:14 | External Medical Summary | Summary of Care ---
Author Name Unknown Organization [facility] Address [address] [place] [address] Phone [phone] Care Team Providers Care Senior Embedded Software Engineer Name Role Phone Unavailable Primary Care Provider Unavailabl e Reason for Visit * Reason Onset Date Comments Referral 11/15/2023 Encounter Details Date Type Department Care Team (Late st Contact Info) Description 11/15/2023 Telephone Didactic Instructor Obstetrics Maternal Medicine, [place] [address] [place], [place] [id number] [place], Nurse Didactic Instructor [facility] [address] [place] [address] Referral Allergies No known active allergiesdocumented as of this encounter (statuses as of 11/15/2023) Medications Medication Sig Dispensed Refills Start Date End Date Status 6.75-0.2 MG Oral Tablet Take by mouth. Active QwbcgTouch Verio Flex System w/Device KitIndications:Diet controlled gestational diabetes mellitus (GDM) in third trimester Use to test blood sugars 4 times daily (fasting, 1 hour after breakfast, lunch, and dinner) 1 Kit 11/15/2023 Active QwbcgTouch Verio In Vitro Strip (Glucose Blood)Indications:Diet controlled gestational diabetes mellitus (GDM) in third trimester Use to test blood sugars 4 times daily (fasting, 1 hour after breakfast, lunch, and dinner) 125 Strip 6 11/15/2023 Active QwbcgTouch Delica Lancets 30GIndications:Diet controlled gestational diabetes mellitus (GDM) in third trimester Use to test blood sugars 4 times daily (fasting, 1 hour after breakfast, lunch, and dinner) 200 Each 6 11/15/2023 Active documented as of this encounter (statuses as of 11/15/2023) Active Problems Problem Noted Date Diagnosed Date Diet controlled gestational diabetes mellitus (GDM) in third trimester 11/14/2023 , normal first 07/19/2023 Estimated Date of Delivery Comme nts Yes 02/01/2024 Based on last me nstrual period of 04/27/2023 documented as of this encounter (statuses as of 11/15/2023) Immunizations Name Administration Dates Next Due TDAP, Age 7 and older, IM (Adacel) 11/08/2023 documented as of this encounter Social History Tobacco Use Types Packs/Day Years Used Date Smoking Tobacco: Never Smokeless Tobacco: Never Alcohol Use Standard Drinks/Week Comments Never 0 (1 standard drink = 0.6 oz pur e alcohol) [place] Depression Scale Answer Date Recorded [place] Depression Scale Total 6 07/19/2023 The thought [...] Telephone Encounter - Annette Gibson OSA - 11/15/2023 1:16 PM EDT Phone call to patient. Left message on [employer]'s voice mail. Encouraged patient to return call [facility] to assist with scheduling. Also sent MyG message. * Telephone Encounter - Yulia Friend CCMA - 11/15/2023 12:55 PM EDT Estimated Date of Delivery: 02/01/24 Please schedule for 45 MINUTE ADAPT WITH NEONATAL NURSE, in time frame of within 1 week at location [facility] with the indication of GDM. Please schedule anatomy within 1-3 weeks. Referring Provider: Nancy Girard CRNP documented in this encounter Plan of Treatment Upcoming Encounters Date Type Department Care Team (Late st Contact Info) Description 11/23/2023 11:45 AM EDT Office Visit Gynecology/Obstetrics [facility] [address] [place] [address] Nancy Girard CRNP [address] [place] [address] Health Maintenance Due Date Last Done Comments Depression Screening 2006 Hepatitis B Vaccine (1 of 3 - 19+ 3-dose series) 2013 COVID-19 Vaccine ( - 2022-2 4 season) 2022 Influenza Vaccine [...]
--- OUTSIDE RECORDS SUMMARY | 2024-01-29 19:14 | External Medical Summary | Summary of Care ---
Author Name Unknown Organization [facility] Address [address] [place] [address] Phone [phone] Care Team Providers Care Agile Business Analyst Name Role Phone Unavailable Primary Care Provider Unavailabl e Reason for Referral * Evaluate & Treat - Unlimited Visits (Within 10 days (routine)) - Pending Review Specialty Diagnoses / Procedures Referred By Nils kemp Referred To Contact Deputy Director / Nutrition Services Diagnoses Diet controlled gestational diabetes mellitus (GDM) in third trimester Nancy Girard CRNP [address] [place] [address] Referral ID Status Reason Start Date Expiration Date Visits Requested Visits Authorized [id number] Pending Review Specialty Services Required 11/15/[phone] Question Answer Is the patient ? Yes Referral Priority Within 10 days (routine) Where should this appointment be scheduled? [facility] Comments This referral is for Diabetes Self-Management Training (DSMT) by a recognized [place] [employer] (ADA) informatics educator: Nurse (RN), Registered Dietitian Warehouse Record Clerk (RDN), and/or Diabetes Medical Nutrition Therapy (MNT) Management (dietitian only). Diabetes educators are responsible for assessing the participant's diabetes education needs, and providing diabetes self-management training in accordance with the standards set by the ADA for DSMT. Any adjustment in diabetes therapy will be made within the guidelines of standards of practice and [facility] approved policies and procedures. I understand that the informatics educator will keep me informed. Areas of Education: Pathophysiology Nutrition Physical Activity Medications Monitoring Acute Complications Chronic Complications Psychosocial Management Promote Health/Behavior Change Participant will be offered 1:1 education training if there is a lack of classes available within 2 months. Providers can also order 1:1 training if indicated for participant for the following reasons: 1:1 Training for Insulin Initiation Participant Inappropriate for Class Setting By my electronic signature, I understand that my patient will be offered the comprehensive ADA content area above unless deemed not appropriate of I specify otherwise here: * Evaluate & Treat - Unlimited Visits (Within 10 days (routine)) - Pending Review Specialty Diagnoses / Procedures Referred By Nils kemp Referred To Contact Obstetrics/Gynecology / Maternal Medicine Diagnoses Diet controlled gestational diabetes mellitus (GDM) in third trimester Nancy Girard CRNP [address] [place] [address] Referral ID Status Reason Start Date Expiration Date Visits Requested Visits Authorized [id number] Pending Review Specialty Services Required 11/15/[phone] Question Answer Referral Priority Within 10 days (routine) Has the patient had a viability scan? Yes Date performed 07/19/2023 Location performed Radiology Reason for referral Diabetes Diabetes type Gestational Where should this appointment be scheduled? [facility] Comments /Para: LMP: Patient's last menstrual period was 04/27/2023. Patient is . CIARAN: 02/01/2024, by Last Menstrual Period Pre-Gravid BMI: 26.15 Reason for Visit * Reason Onset Date Comments Test Results 11/14/2023 GDM Encounter Details Date Type Department Care Team (Late st Contact Info) Description 11/14/2023 Telephone Gynecology/Obstetrics [facility] [address] [place] [address] Nancy Girard CRNP [address] [place] [address] Test Results (GDM) Allergies No known active allergiesdocumented as of this encounter (statuses as of 11/15/2023) Medications Medication Sig Dispensed Refills Start Date End Date Status 6.75-0.2 MG Oral Tablet Take by mouth. Active EvolverTouch Verio Flex System w/Device KitIndications:Diet controlled gestational diabetes mellitus (GDM) in third trimester Use to test blood sugars 4 times daily (fasting, 1 hour after breakfast, lunch, and dinner) 1 Kit 11/15/2023 Active EvolverToTourRadar In Vitro Strip (Glucose Blood)Indications:Diet controlled gestational diabetes mellitus (GDM) in third trimester Use to test blood sugars 4 times daily (fasting, 1 hour after breakfast, lunch, and dinner) 125 Strip 6 11/15/2023 Active EvolverTouch Delica Lancets 30GIndications:Diet controlled gestational diabetes mellitus [...] drink = 0.6 oz pur e alcohol) [place] Depression Scale Answer Date Recorded [place] Depression Scale Total 6 07/19/2023 The thought [...] encounter Miscellaneous Notes * Telephone Encounter - Nancy Girard CRNP - 11/15/2023 9:41 AM EDT Orders placed. * Telephone Encounter - Ijeoma Tejeda LPN - 11/14/2023 3:48 PM EDT Patient notified. Pharmacy updated * Telephone Encounter - Nancy Girard CRNP - 11/14/2023 3:03 PM EDT Please notify pt that she failed her 3hr GTT. She has GDM. Ask pharmacy and I will send testing supplies. Will need to check blood sugar 4 times a day[address] Will place MFM referral so blood sugars can be managed by ADAPT program. Please make pt aware of this then route back and I will place orders documented in this encounter Plan of Treatment Upcoming Encounters Date Type Department Care Team (Late st Contact Info) Description 11/23/2023 11:45 AM EDT Office Visit Gynecology/Obstetrics [facility] [address] [place] [address] Nancy Girard CRNP [address] [address] Scheduled Orders Name Type Priority Associated Diagnoses Orde r Schedule MFM US MATERNAL 1ST FETUS Medical Imaging Routine Diet controlled gestational diabetes mellitus (GDM) in third trimester Other specified related conditions, third trimester Expected: 11/15/2023, Expires: 12/15/2024 Scheduled Referrals Name Type Priority Associated Diagnoses Orde r Schedule MATERNAL MEDICINE REFERRAL OP Referral Within 10 days (routine) Diet controlled gestational diabetes mellitus (GDM) in third trimester Ordered: 11/15/2023 DIABETES MANAGEMENT EDUCATION (ADA) REFERRAL Referral Within [...] diabetes mellitus (GDM) in third trimester- Primary Other specified related conditions, third trimester documented in this encounter
--- OUTSIDE RECORDS SUMMARY | 2024-01-29 19:14 | External Medical Summary ---
Author Name Unknown Address Unknown Organization [id number] [address] [place] [id number] Laboratory Report Ordering Provider Test Date Status DOMI CALDERA 11/14/2023 12:25:59 Final Observation Date Value Abnormality Reference (Units ) Status Glucose [Mass/volume] in Serum or Plasma --3 hours post dose glucose 11/14/2023 12:25:59 114 70-139 (mg/dL) Final Performing Location [facility] [address] [place] [address]
--- OUTSIDE RECORDS SUMMARY | 2024-01-29 19:14 | External Medical Summary | Summary of Care ---
Author Name Unknown Organization [facility] Address [address] [place] [address] Phone [phone] Care Team Providers Care Hot Wound Spring Production Supervisor Name Role Phone Unavailable Primary Care Provider Unavailabl e Reason for Visit * Reason Comments Outpatient Testing Encounter Details Date Type Department Care Team (Late st Contact Info) Description 11/14/2023 9:00 AM EDT Laboratory Laboratory, [facility] [address] [place] [address] [facility] [address] [place] [address] Abnormal glucose tolerance in mother complicating Allergies [...] drink = 0.6 oz pur e alcohol) [place] Depression Scale Answer Date Recorded [place] Depression Scale Total 6 07/19/2023 The thought [...] 11/23/2023 11:45 AM EDT Office Visit Gynecology/Obstetrics [place] [address] [place] [address] Nancy Girard CRNP [address] [place] [address] Pending Results Name Type Priority Associated Diagnoses Date /Time GESTATIONAL GLUCOSE TOLERANCE, 3 HOUR Lab Routine Abnormal glucose tolerance in mother complicating 11/14/2023 9:16 AM EDT 100-G GESTATIONAL GLUCOSE, 2 HOUR Lab Routine Abnormal glucose tolerance in mother complicating 11/14/2023 11:31 AM EDT 100-G GESTATIONAL GLUCOSE, 3 HOUR Lab Routine Abnormal glucose tolerance in mother complicating 11/14/2023 12:25 PM EDT Health Maintenance Due Date Last Done Comments [...] Date/Time Associated Diagnosis Comments 100-G GESTATIONAL GLUCOSE, 1 HOUR Routine 11/14/2023 10:20 AM EDT Abnormal glucose tolerance in mother complicating 100-G GESTATIONAL GLUCOSE, FASTING Routine 11/14/2023 9:16 AM EDT Abnormal glucose tolerance in mother complicating documented in this encounter Results * 100-G GESTATIONAL GLUCOSE, 1 HOUR (11/14/2023 10:20 AM EDT) 100-g Gestational Glucose, 1 Hour 171 70 - 179 mg/dL 11/14/2023 11:48 AM EDT [facility] Blood Venous blood specimen / Unknown Venipuncture / Unknown 11/14/2023 10:20 AM EDT 11/14/2023 11:12 AM EDT Nancy GARCÍA LAB BLOOD ORDERABLES [facility] [place] [address] * (ABNORMAL) 100-G GESTATIONAL GLUCOSE, FASTING (11/14/2023 9:16 AM EDT) 100-g Gestational Glucose, Fasting 99(H) 70 - 94 mg/dL 11/14/2023 10:37 AM EDT [facility] 57[facility]10 Blood Venous blood specimen / Unknown Venipuncture / Unknown 11/14/2023 9:16 AM EDT 11/14/2023 9:16 AM EDT Narrative [facility] 57[facility]10 - 11/14/2023 10:37 AM [...] Nancy GARCÍA LAB BLOOD ORDERABLES [facility] [address] [place] [address] [place] [address] documented in this encounter Visit Diagnoses Diagnosis Abnormal glucose tolerance in mother complicating Abnormal maternal glucose tolerance, complicating , childbirth, or the puerperium, unspecified as to episode of care documented in this encounter
--- OUTSIDE RECORDS SUMMARY | 2024-01-29 19:14 | External Medical Summary | Summary of Care ---
Author Name Unknown Organization [facility] Address [address] [place] [address] Phone [phone] Care Team Providers Care Public Health Name Role Phone Unavailable Primary Care Provider Unavailabl e Reason for Visit * Reason Onset Date Comments Referral 11/15/2023 Encounter Details Date Type Department Care Team (Late st Contact Info) Description 11/15/2023 Telephone Special Effects Person Obstetrics Maternal Medicine, [place] [address], [place] [phone] [place], Nurse Special Effects Person [facility] [address] [place] [address] Referral Allergies No known active allergiesdocumented as of this encounter (statuses as of 11/15/2023) Medications Medication Sig Dispensed Refills Start Date End Date Status 6.75-0.2 MG Oral Tablet Take by mouth. Active Peek KidsTouch Verio Flex System w/Device KitIndications:Diet controlled gestational diabetes mellitus (GDM) in third trimester Use to test blood sugars 4 times daily (fasting, 1 hour after breakfast, lunch, and dinner) 1 Kit 11/15/2023 Active Peek KidsTouch Verio In Vitro Strip (Glucose Blood)Indications:Diet controlled gestational diabetes mellitus (GDM) in third trimester Use to test blood sugars 4 times daily (fasting, 1 hour after breakfast, lunch, and dinner) 125 Strip 6 11/15/2023 Active Peek KidsTouch Delica Lancets 30GIndications:Diet controlled gestational diabetes mellitus [...] drink = 0.6 oz pur e alcohol) [place] Depression Scale Answer Date Recorded [place] Depression Scale Total 6 07/19/2023 The thought [...] Encounter - Annette Gibson OSA - 11/15/2023 2:06 PM EDT Spoke with Kaleigh. Appointment scheduled. Patient aware of date, time and location of Maternal Medicine appointment. * Telephone Encounter - Annette Gibson OSA - 11/15/2023 1:16 PM EDT Phone call to patient. Left message on [employer]'s voice mail. Encouraged patient to return call [facility] to assist with scheduling. Also sent MyG message. * Telephone Encounter - Yulia Friend CCMA - 11/15/2023 12:55 PM EDT Estimated Date of Delivery: 02/01/24 Please schedule for 45 MINUTE ADAPT WITH MOSAIC TILE MAKER, in time frame of within 1 week at [facility] with the indication of GDM. Please schedule anatomy within 1-3 weeks. Referring Provider: Nancy Girard CRNP documented in this encounter Plan of Treatment Upcoming Encounters Date Type Department Care Team (Late st Contact Info) Description 11/23/2023 11:45 AM EDT Office Visit Gynecology/Obstetrics [facility] [address] [place] [address] Nancy Girard CRNP [address] [place] [address] 11/29/2023 1:45 PM EDT Telemedicine Special Effects Person Obstetrics Maternal Medicine [facility], Kenji Jin [address] [facility] [place] [address] Moises Lopez CRNP [address] [address] 12/01/2023 9:30 AM EDT Office Visit Special Effects Person OB Maternal Medicine [facility] Debbi Miller [address] [place] [address] [address] [place] [address] Doris Hopkins, DO [address] [place] [facility] [place] [address] 12/01/2023 9:30 AM EDT Imaging Maternal Medicine [facility] Debbi Miller [address] [place] [address] [address] [place] [address] Health Maintenance Due Date Last Done Comments [...]
--- OUTSIDE RECORDS SUMMARY | 2024-01-29 19:15 | External Medical Summary ---
Author Name Unknown Address Unknown Organization [id number]:[facility] [address] [facility] [address] Laboratory Report Ordering Provider Test Date Status DOMI CALDERA 11/08/2023 11:36:53 Final Observation Date Value Abnormality Reference (Units ) Status SYNC LEUKOCYTES IN BLOOD BY AUTOMATED COUNT 11/08/2023 11:36:53 7.84 4.00-10.80 (K/uL) Final Segs 11/08/2023 11:36:53 65.8 40.0-75.0 (%) Final Lymphs % 11/08/2023 11:36:53 21.4 18.0-42.0 (%) Final Monos 11/08/2023 11:36:53 7.1 1.0-11.0 (%) Final Eosinophils 11/08/2023 11:36:53 4.5 0.0-6.0 (%) Final Basos 11/08/2023 11:36:53 0.4 0.0-2.0 (%) Final Immature Granulocyte, Percent 11/08/2023 11:36:53 0.8 0.0-2.0 (%) Final Absolute Segs 11/08/2023 11:36:53 5.16 1.80-7.70 (K/uL) Final Lymphs, absolute 11/08/2023 11:36:53 1.68 1.00-4.80 (K/ul) Final Monos, Abs 11/08/2023 11:36:53 0.56 0.00-1.10 (K/uL) Final Eos, Abs 11/08/2023 11:36:53 0.35 0.00-0.70 (K/uL) Final Basos, Abs 11/08/2023 11:36:53 0.03 0.00-0.20 (K/uL) Final Immature Granulocytes, Number 11/08/2023 11:36:53 0.06 0.00-0.20 (K/uL) Final Performing Location [facility] [address] [facility] [id number]
--- OUTSIDE RECORDS SUMMARY | 2024-01-29 19:15 | External Medical Summary | Summary of Care ---
Author Name Unknown Organization [facility] Address [address] [place] [place] [address] Phone [phone] Care Team Providers Care Trust Operations Assistant Name Role Phone Unavailable Primary Care Provider Unavailabl e Reason for Visit * Reason Comments Return Visit Encounter Details Date Type Department Care Team (Late st Contact Info) Description 11/08/2023 10:30 AM EDT Office Visit Gynecology/Obstetric s [facility] [address] [place] [address] Nancy Girard CRNP [address] [place] [address] Encounter for supervision of normal first in third trimester*; Need for prophylactic vaccination with combined vsjbyylrtd-nbvhiwc-wb rtussis (DTP) vaccine Allergies No known active allergiesdocumented as of [...] drink = 0.6 oz pur e alcohol) [place] Depression Scale Answer Date Recorded [place] Depression Scale Total 6 07/19/2023 The thought [...] Sign Reading Time Taken Comments Blood Pressure 122/76 11/08/2023 10:48 AM EDT Pulse - - Temperature - - Respiratory Rate - - Oxygen Saturation - - Inhaled Oxygen Concentration - - Weight 93 kg (205 lb) 11/08/2023 10:48 AM EDT Height - - Body Mass Index 32.11 10/11/2023 10:30 AM EDT documented in this encounter Progress Notes * Stacie Rodriguez MED ASSIST - 11/08/2023 11:04 AM EDT Patient here for TDAP injection. Patient doing well no complaints. Injection given IM as ordered. Patient tolerated well. Patient to follow up as directed. Patient instructed to call if any complications. Patient verbalized understanding of instructions given and her follow up appt for SCOTT Injection site: Left Deltoid Medication Source: Dispensed stock medication * Nya Greenwood LPN - 11/08/2023 10:49 AM EDT 27w6d Denies vaginal bleeding/rom + movement Gtt today Tdap today documented in this encounter Plan of Treatment Upcoming Encounters Date Type Department Care Team (Late st Contact Info) Description 11/23/2023 11:45 AM EDT Office Visit Gynecology/Obstetrics [facility] [address] [place] [address] Nancy Girard CRNP [address] [place] [address] Health Maintenance Due Date Last Done Comments [...] as of this encounter Visit Diagnoses Diagnosis Encounter for supervision of normal first in third trimester- Primary Supervision of normal first Need for prophylactic vaccination with combined mldaljuvde-rqqdxmh-fhjqlnzim (DTP) vaccine documented in this encounter
--- OUTSIDE RECORDS SUMMARY | 2024-01-29 19:15 | External Medical Summary ---
Author Name Unknown Address Unknown Organization : Laboratory Report Ordering Provider Test Date Status LIYA NAVA 11/08/2023 11:36:53 Final Observation Date Value Abnormality Reference (Units ) Status NUMBER OF FETUSES? 11/08/2023 11:36:53 1 Final ADVANCED MATERNAL AGE? 11/08/2023 11:36:53 NO Final ABNORMAL SUZANNE? 11/08/2023 11:36:53 NO Final ABNORMAL US? 11/08/2023 11:36:53 NOT GIVEN Final PERSONAL/FAM HISTORY? 11/08/2023 11:36:53 NOT GIVEN Final INTERPRETATION 11/08/2023 11:36:53 SEE BELOW Final This specimen showed an expe cted representation of
chromosome 21, 18, and 13 material. Results were
not analyzed or reported for microdeletions. See
'Limitations' below. TRISOMY 21 (T21) 11/08/2023 11:36:53 Negative Final TRISOMY 18 (T18) 11/08/2023 11:36:53 Negative Final TRISOMY 13 (T13) 11/08/2023 11:36:53 Negative Final Y CHROMOSOME 11/08/2023 11:36:53 Detected Final Y CHR. INTERPRETATION 11/08/2023 11:36:53 SEE BELOW Final Consistent with a male fetus . SEX CHROMOSOME 11/08/2023 11:36:53 No aneuploidy Final SEX CHROMOSOME INTERP 11/08/2023 11:36:53 SEE BELOW Final No apparent abnormality was detected. See
'Limitations' below. MICRODELETION 11/08/2023 11:36:53 Opted Out Final MICRODELETION INTERP 11/08/2023 11:36:53 SEE BELOW Final Results were not analyzed or reported for
microdeletions. GESTATIONAL AGE (IN WEEKS) 11/08/2023 11:36:53 26 Final GESTATIONAL AGE (IN DAYS) 11/08/2023 11:36:53 6 Final FRACTION 11/08/2023 11:36:53 30.50% Final LABORATORY COMMENTS 11/08/2023 11:36:53 SEE BELOW Final A portion of the testing was performed at [facility].
Laboratory results and submitted clinical
information reviewed by Barbara Prado, Ph.D., [facility],
[facility]. LIMITATIONS 11/08/2023 11:36:53 SEE BELOW Final QNatal(R) Advanced is a cell -free DNA screening
test that screens for increased risk of certain
chromosomal abnormalities that may cause
defects, including Trisomy 21 (Down
syndrome), Trisomy 18, Trisomy 13, and certain sex
chromosome abnormalities (i.e., 45,X, 47,XXY,
47,XXX, and 47,XYY), as well as sex. In
addition, if selected as an option, QNatal(R)
Advanced can screen for certain microdeletions
(i.e., 22q, 5p, 1p36, 15q, 11q, 8q, and 4p) that
may cause defects. This test does not assess
the risk of abnormalities such as neural
tube defects or ventral wall defects and should
not be considered in isolation from other clinical
findings and laboratory test results.
QNatal(R) Advanced has been validated in kendrick
pregnancies for the trisomies and sex chromosome
abnormalities listed above, as well as for
microdeletions, and for the determination of
sex. Sex chromosome aneuploidy analysis is only
performed in kendrick pregnancies. This screening
test has also been validated in twin pregnancies
for the trisomies listed above and for
microdeletions, but not for the sex chromosome
abnormalities due to limited data. This screening
test has not been validated in higher order
pregnancies (more than two) because limited data
is available. Sex chromosomal aneuploidy results
issued for pregnancies confirmed to be of multiple
gestations are not valid and should be
disregarded.
Microdeletion screening is limited to the
specified microdeletion regions (see
'Methodology'). The Y chromosome is analyzed for
the determination of sex. The sensitivity
and specificity of sex determination
analysis may be less than that of the Trisomy 21,
18, and 13 analysis and this determination can be
confounded by vanishing twin syndrome in
pregnancies that were originally multiple
gestation pregnancies. It should be noted that
QNatal(R) Advanced is a quantitative analysis of
maternal and placental cfDNA. As a result, the
accuracy of screening results may be affected by
the presence of chromosome abnormalities or
microdeletions that are maternal or confined
placental in origin. SPECIFICATIONS 11/08/2023 11:36:53 SEE BELOW Final Sensitivity Specificity
T21 >99.9% >99.9%
T18 >99.9% >99.9%
T13 >99.9% >99.9%
Accuracy
Y >99.9%
Performance of the QNatal Advanced
laboratory-developed test (LDT) has been
determined based on internal analytical
assessment. METHODOLOGY 11/08/2023 11:36:53 SEE BELOW Final Circulating cell-free (cf) D NA was isolated from
plasma followed by detection on a massively
parallel sequencing platform. Bioinformatic
analysis was performed to determine the
representation of chromosomes 21, 18, 13, X and Y
in circulating cell-free DNA. The representation
of sequences from the critical regions involved in
1p36 microdeletion syndrome (1p36),
Gallagher-Hirschhorn syndrome (4p), Cri-du-chat
syndrome (5p), Simeon-Giedion syndrome (8q),
Kaylynn syndrome (11q), Prader Willi
syndrome/Angelman syndrome (15q), and DiGeorge
syndrome (22q) is evaluated for the detection of
microdeletions if requested. Performance
characteristics refer to the analytical
performance of this screening test. This screening
test is performed pursuant to a license agreement
with [employer].
QNatal Advanced is a laboratory developed test
that has been developed and validated, pursuant to
the Clinical Laboratory Improvements Amendments of
1988 (CLIA), and as such it has not been reviewed
by FDA.
Test performed by [facility]
[address],
[place] [address]

Geological Specialist: Maria Eugenia Perez MD,PHD,SHAWNA
[facility],
[facility] [place],
[address] [place], [place]
Eben Adhikari M.D., Ph.D., Director of Laboratories
, CLIA [id number] Performing Location
--- OUTSIDE RECORDS SUMMARY | 2024-01-29 19:15 | External Medical Summary | Summary of Care ---
Author Name Unknown Organization [facility] Address [address] [place] [facility] [place] [address] Phone [phone] Care Team Providers Care Hvac R Instructor Name Role Phone Unavailable Primary Care Provider Unavailabl e Reason for Visit * Reason Comments Return Visit Encounter Details Date Type Department Care Team (Late st Contact Info) Description 09/13/2023 10:30 AM EDT Office Visit Gynecology/Obstetric s Fl[facility] Tejada [address] [place] [id number] Nancy Girard CRNP [address] [place] [phone] Encounter for supervision of normal first in second trimester* Allergies No known active allergiesdocumented as of this encounter (statuses as of 09/13/2023) Medications Medication Sig Dispensed Refills Start Date End Date Status 6.75-0.2 MG Oral Tablet Take by mouth. Active documented as of this encounter (statuses as of 09/13/2023) Active Problems Problem Noted Date Diagnosed Date , normal first 07/19/2023 Estimated Date of Delivery Comme nts Yes 02/01/2024 Based on last me nstrual period of 04/27/2023 documented as of this encounter (statuses as of 09/13/2023) Social History Tobacco Use Types Packs/Day Years Used Date Smoking Tobacco: Never Smokeless Tobacco: Never Alcohol Use Standard Drinks/Week Comments Never 0 (1 standard drink = 0.6 oz pur e alcohol) [place] Depression Scale Answer Date Recorded [place] Depression Scale Total 6 07/19/2023 The thought [...] Sign Reading Time Taken Comments Blood Pressure 112/70 09/13/2023 10:05 AM EDT Pulse - - Temperature - - Respiratory Rate - - Oxygen Saturation - - Inhaled Oxygen Concentration - - Weight 86.3 kg (190 lb 3.2 oz) 09/13/2023 10:05 AM EDT Height 170.2 cm (5' 7") 09/13/2023 10:05 AM EDT Body Mass Index 29.79 09/13/2023 10:05 AM EDT documented in this encounter Progress Notes * Nancy Girard CRNP - 09/13/2023 10:17 AM EDT 19w6d Having headaches, improves with hydration. Still with some round ligament pains, just with activity. Has not felt FM yet. No bleeding or LOF. Asking for dental note. Anatomy u/s today, results pending. RICKY Roberson documented in this encounter Nursing Notes * Nova Almodovar RN - 09/13/2023 10:07 AM EDT Patient here for SCOTT 19w6d Having cramping and OWENS, improves with water intake Had anatomy today Nova Almodovar, RN documented in this encounter Plan of Treatment Upcoming Encounters Date Type Department Care Team (Late st Contact Info) Description 10/11/2023 10:30 AM EDT Office Visit Gynecology/Obstetrics Flavio Tejada [address] [place] [address] Nancy Girard CRNP [address] [place] [phone] Health Maintenance Due Date Last Done Comments Depression Screening 2006 DTaP,Tdap,and Td Vaccines (1 - Tdap) 2013 Hepatitis B (1 of 3 - 19+ 3- dose series) 2013 COVID-19 Vaccine ( - 2022-2 4 season) 2022 Influenza Vaccine (FLU shot) (Season Ended) 2023 Pap Smear 07/18/2026 07/19/2023 GARDASIL-HPV IMMUNIZATION SERIES Aged Out No longer eligible based on [...] Encounter for supervision of normal first in second trimester- Primary Supervision of normal first documented in this encounter
--- OUTSIDE RECORDS SUMMARY | 2024-01-29 19:15 | External Medical Summary ---
Author Name Unknown Address Unknown Organization [id number]:[facility] [place] [id number] Laboratory Report Ordering Provider Test Date Status VERENICEDOMI 11/08/2023 11:36:53 Final Observation Date Value Abnormality Reference (Units ) Status Glucose [Moles/volume] in Serum or Plasma --1 hour post 50 g glucose PO 11/08/2023 11:36:53 165 Above high normal 70-129 (mg/dL) Final Performing Location [facility] [place] [id number]
--- OUTSIDE RECORDS SUMMARY | 2024-01-29 19:15 | External Medical Summary | Summary of Care ---
Author Name Unknown Organization [facility] Address [address] [place] [address] Phone [phone] Care Team Providers Care Kit Assembler Name Role Phone Unavailable Primary Care Provider Unavailabl e Reason for Visit * Reason Comments Outpatient Testing Encounter Details Date Type Department Care Team (Late st Contact Info) Description 11/08/2023 10:20 AM EDT Laboratory Laboratory, [facility] [address] [place] [id number] [facility] [address] [place] [address] Encounter for supervision of normal first in second trimester Allergies No known active allergiesdocumented as [...] drink = 0.6 oz pur e alcohol) [place] Depression Scale Answer Date Recorded [place] Depression Scale Total 6 07/19/2023 The thought [...] 11/23/2023 11:45 AM EDT [facility] [address] [place] [address] Nancy Girard CRNP [address] [place] [phone] Pending Results Name Type Priority Associated Diagnoses Date /Time QNATAL ADVANCED (QUEST) Lab Routine Encounter for supervision of normal first in second trimester 11/08/2023 11:36 AM EDT 50-G GESTATIONAL GLUCOSE, 1 HOUR Lab Routine Encounter for supervision of normal first in second trimester 11/08/2023 11:36 AM EDT CBC WITH WBC DIFFERENTIAL AND ANEMIA REFLEX WORKUP Lab Routine Encounter for supervision of normal first in second trimester 11/08/2023 11:36 AM EDT SYPHILIS ANTIBODY SCREEN WITH REFLEX TO RPR Lab Routine Encounter for supervision of normal first in second trimester 11/08/2023 11:36 AM EDT ANEMIA CBC Lab Routine Encounter for supervision of normal first in second trimester 11/08/2023 11:36 AM EDT DIFFERENTIAL, AUTOMATED Lab Routine Encounter for supervision of normal first in second trimester 11/08/2023 11:36 AM EDT ANEMIA REFLEX CHEMISTRY HOLD Lab Routine Encounter for supervision of normal first in second trimester 11/08/2023 11:36 AM EDT SYPHILIS ANTIBODY SCREEN Lab Routine Encounter for supervision of normal first in second trimester 11/08/2023 11:36 AM EDT Health Maintenance Due Date Last Done [...] for supervision of normal first in second trimester Supervision of normal first documented in this encounter
--- OUTSIDE RECORDS SUMMARY | 2024-01-29 19:15 | External Medical Summary ---
Author Name Unknown Address Unknown Organization [id number]:[facility] - [address] [place] [id number] Laboratory Report Ordering Provider Test Date Status DOMI CALDERA 11/08/2023 11:36:53 Final Observation Date Value Abnormality Reference (Units ) Status WBC, Total 11/08/2023 11:36:53 7.84 4.00-10.8 0 (K/uL) Final RBC 11/08/2023 11:36:53 4.35 3.85-5.15 (M/uL) Final Hemoglobin 11/08/2023 11:36:53 13.0 12.0-15.3 (g/dL) Final Anemia reflex testing trigge rs on a HGB < 12.0 for Females and HGB < 13.0 for Males in accordance with the WHO Anemia Guidelines
Anemia reflex testing triggers on a HGB < 12.0 for Females and HGB < 13.0 for Males in accordance with the WHO Anemia Guidelines HCT 11/08/2023 11:36:53 40.5 36.0-45.2 (%) Final MCV 11/08/2023 11:36:53 93.1 81.5-97.5 (fL) Final MCH 11/08/2023 11:36:53 29.9 27.0-34.0 (pg) Final MCHC 11/08/2023 11:36:53 32.1 32.0-36.0 (g/dL) Final RDW 11/08/2023 11:36:53 15.8 11.5-15.5 (%) Final Platelets 11/08/2023 11:36:53 317 140-400 (K /uL) Final MPV 11/08/2023 11:36:53 10.9 6.6-11.1 ( fL) Final Nucleated erythrocytes/100 leukocytes [Ratio] in Blood by Automated count 11/08/2023 11:36:53 0 <=0 (/100 WBCs) Fi formerly [facility] Performing Location [facility] - [address] [facility] [address]
--- OUTSIDE RECORDS SUMMARY | 2024-01-29 19:15 | External Medical Summary | Summary of Care ---
Author Name Unknown Organization [facility] Address [address] [place] [address] Phone [phone] Care Team Providers Care Anesthetic Assistant Name Role Phone Unavailable Primary Care Provider Unavailabl e Encounter Details Date Type Department Care Team (Late st Contact Info) Description 11/08/2023 Telephone Gynecology/Obstetrics [facility] Te[facility]ada [address] [facility] [place] [address] Nancy Girard CRNP [address] [place] [address] Allergies No known active allergiesdocumented [...] drink = 0.6 oz pur e alcohol) [place] Depression Scale Answer Date Recorded [place] Depression Scale Total 6 07/19/2023 The thought [...] Visit Gynecology/Obstetrics Flavio Tejada [address] [place] [address] Nancy Girard CRNP [address] [address] [address] Scheduled Orders Name Type Priority Associated Diagnoses [...]
--- OUTSIDE RECORDS SUMMARY | 2024-01-29 19:15 | External Medical Summary ---
Author Name Unknown Address Unknown Organization K01:[facility] - [address] [facility] [address] Laboratory Report Ordering Provider Test Date Status DOMI CALDERA 11/08/2023 11:36:53 Final Observation Date Value Abnormality Reference (Units ) Status Treponema pallidum Ab [Presence] in Serum by Immunoassay 11/08/2023 11:36:53 Nonreactive Nonreactive Final No serologic evidence of syp hilis. No additional testing clinicially indicated at this time. Consider repeat testing in 2-4 weeks if acute or primary syphilis is suspected. Performing Location [facility] - [address] [facility] [address]
--- OUTSIDE RECORDS SUMMARY | 2024-01-29 19:15 | External Medical Summary | Summary of Care ---
Author Name Unknown Organization [facility] Address [address] [place] [place] [address] Phone [phone] Care Team Providers Care Pocket Operator Name Role Phone Unavailable Primary Care Provider Unavailabl e Reason for Visit * Reason Onset Date Comments transfer of records 09/15/2023 Encounter Details Date Type Department Care Team (Late st Contact Info) Description 09/15/2023 Telephone [facility] [address] [place] [address] Nancy Girard CRNP [address] [facility] [place] [address] transfer of records Allergies No known active allergiesdocumented as of this encounter (statuses as of 09/15/2023) Medications Medication Sig Dispensed Refills Start Date End Date Status 6.75-0.2 MG Oral Tablet Take by mouth. Active documented as of this encounter (statuses as of 09/15/2023) Active Problems Problem Noted Date Diagnosed Date , normal first 07/19/2023 Estimated Date of Delivery Comme nts Yes 02/01/2024 Based on last me nstrual period of 04/27/2023 documented as of this encounter (statuses as of 09/15/2023) Social History Tobacco Use Types Packs/Day Years Used Date Smoking Tobacco: Never Smokeless Tobacco: Never Alcohol Use Standard Drinks/Week Comments Never 0 (1 standard drink = 0.6 oz pur e alcohol) [place] Depression Scale Answer Date Recorded [place] Depression Scale Total 6 07/19/2023 The thought [...] encounter Miscellaneous Notes * Telephone Encounter - Neva Talley OSA - 09/15/2023 10:24 AM EDT Patient would like records to be sent to herself for strategic intelligence officer and Imaging. Forward [facility] documented in this encounter Plan of Treatment Upcoming Encounters Date Type Department Care Team (Late st Contact Info) Description 10/11/2023 10:30 AM EDT Office Visit Gynecology/Obstetrics [facility] [address] [place] [address] Nancy Girard CRNP [address] [place] [address] Health Maintenance Due Date Last Done Comments Depression Screening 2006 DTaP,Tdap,and Td Vaccines (1 - Tdap) 2013 Hepatitis B (1 of 3 - 19+ 3- dose series) 2013 COVID-19 Vaccine (2022-2 4 season) [...]
--- OUTSIDE RECORDS SUMMARY | 2024-01-29 19:15 | External Medical Summary | Summary of Care ---
Author Name Unknown Organization [facility] Address [address] [place] [address] Phone [phone] Care Team Providers Care Refinery Operator Visbreaking Name Role Phone Unavailable Primary Care Provider Unavailabl e Reason for Visit * Reason Comments Return Visit Encounter Details Date Type Department Care Team (Late st Contact Info) Description 08/16/2023 11:45 AM EDT Office Visit Gynecology/Obstetric s Flavio Tejada [address] [place] [address] BackerTiffany CRNP [address] [place] [phone] Encounter for supervision of normal first in second trimester*; Encounter for supervision of normal in second trimester, unspecified Allergies No known active allergiesdocumented as of this encounter (statuses as of 08/16/2023) Medications Medication Sig Dispensed Refills Start Date End Date Status 6.75-0.2 MG Oral Tablet Take by mouth. Active documented as of this encounter (statuses as of 08/16/2023) Active Problems Problem Noted Date Diagnosed Date , normal first 07/19/2023 Estimated Date of Delivery Comme nts Yes 02/01/2024 Based on last me nstrual period of 04/27/2023 documented as of this encounter (statuses as of 08/16/2023) Social History Tobacco Use Types Packs/Day Years Used Date Smoking Tobacco: Never Smokeless Tobacco: Never Alcohol Use Standard Drinks/Week Comments Never 0 (1 standard drink = 0.6 oz pur e alcohol) [place] Depression Scale Answer Date Recorded [place] Depression Scale Total 6 07/19/2023 The thought of harming myself has occurred to me . Never 07/19/2023 Estimated Date of Delivery Comme nts [...] Sign Reading Time Taken Comments Blood Pressure 118/76 08/16/2023 11:48 AM EDT Pulse - - Temperature - - Respiratory Rate - - Oxygen Saturation - - Inhaled Oxygen Concentration - - Weight 83 kg (183 lb) 08/16/2023 11:48 AM EDT Height - - Body Mass Index 28.66 07/19/2023 10:23 AM EDT documented in this encounter Patient Instructions * Patient Instructions* Tiffany Dailey CRNP - 08/16/2023 11:57 AM EDT Round Ligament Pain: Causes and Treatment Round ligament pain is most common during the 2nd and 3rd trimesters. Women may have a sharp pain in their abdomen or hip area that is either on one side or both. Some women even report pain that extends into the groin area. Round ligament pain is considered a normal part of as your body goes through many different changes. What causes round ligament pain? The round ligament supports the uterus and stretches during . It connects the front portion of the uterus to the groin. These ligaments contract and relax like muscles, but much more slowly. Any movement (including going from a sitting to standing position quickly, laughing, or coughing) that stretches these ligaments by making them contract quickly, can cause a woman to experience pain.Round ligament pain should only last for a few seconds. Stretching is the best way to loosen things up and prevent round ligament pain. Here are our top round ligament pain stretches to get you started: #1 CAT-COW Start on your hands and knees, shoulders above wrists and hips above knees. Breathe in and drop your stomach down, arching your back and looking upward. Then, breathe out and round your upper back toward the ceiling, allowing your head to drop and face your stomach. #2 HIP FLEXOR STRETCH In all fours position with your arm resting on a chair or birthing ball, bring the right leg forward while extending/straightening the left leg back until you feel a stretch in the front of the left thigh. Hold the position for 5-10 seconds. Repeat on the opposite side. #3 SIDE LYING SAVASANA Lie on your left side in a position, tuck your left arm beneath your head, and place a pillowbetween your legs to relieve pressure on your lower back. Flex your hips and remain in this position for several minutes. Inhale deeply as you stretch. #4 THE PELVIC CLOCK Sit on a birthing ball or chair with your feet flat on the floor. Bring your hands to your hips so you can feel the movement in your pelvis as you stretch. Now, imagine a clock resting on your pelvis--with your navel at 12 oclock and pubic bone at 6 oclock. Engage your abs and lengthen your spine. Inhale and tilt your pelvis toward a 3 oclock position. Continue on the inhale and move around the clock, creating a small arch in your lower back. Exhale and bring your pelvis to 9 oclock. Continue your exhale until you reach a neutral 12 oclock position. #5 BUTTERFLY STRETCH Sit upright on a firm surface. Place the soles of your feet together and pulse your legs up and down, like the wings of a butterfly. You should feel a stretch in your inner thighs. For an even deeperstretch, place your hands on your knees for resistance. Other Ways to Relieve Round Ligament Pain While round ligament pain stretches are the best way to reduce pain, there are a few other things you can try to alleviate the discomfort : A belly band to give your bump some extra support Hydration to improve circulation to your growing tissue Rest to allow your muscles to recover from any movement Massage to give that area some extra TLC Acetaminophen to get some medicated pain relief documented in this encounter Progress Notes * Tiffany Dailey CRNP - 08/16/2023 12:07 PM EDT 15w6d Still some nausea, has not tried anything. Nursing reviewed remedies. Noticing round ligament pain - information provided on stretches and exercises for this. No bleeding or cramping. Discussed Qnatal, pt desires regardless of insurance. Reviewed follow up for abnormal screening and turn-around time for lab. Aware that sex will be reported as well. Discussed/declined MSAFP for ONTD screening. 4 week return with anatomy scan. RICKY Rivas * Nya Greenwood LPN - 08/16/2023 11:46 AM EDT 15w6d Denies vaginal bleeding/rom Absent movement ? Round ligament pain N&V- has not tried any OTC medications. documented in this encounter Plan of Treatment Scheduled Orders Name Type Priority Associated Diagnoses Orde r Schedule US PREG SINGLE/1ST GEST, 14 WEEKS OR LATER Medical Imaging Routine Encounter for supervision of normal first in second trimester Encounter for supervision of normal in second trimester, unspecified Expected: 09/16/2023 (Approximate), Expires: 10/16/2023 QNATAL ADVANCED (QUEST) Lab Routine Encounter for supervision of normal first in second trimester Expected: 08/16/2023, Expires: 08/15/2024 Health Maintenance Due Date Last Done Comments [...] Diagnoses Diagnosis Encounter for supervision of normal in second trimester, unspecified documented in this encounter
--- OUTSIDE RECORDS SUMMARY | 2024-01-29 19:15 | External Medical Summary | Summary of Care ---
Author Name Unknown Organization [facility] Address [address] [facility] [place] [address] Phone [phone] Care Team Providers Care Knockdown Man Name Role Phone Unavailable Primary Care Provider Unavailabl e Reason for Visit * Reason Comments Return Visit Encounter Details Date Type Department Care Team (Late st Contact Info) Description 10/11/2023 10:30 AM EDT Office Visit Gynecology/Obstetric s Flavio Tejada [address] [place] [id number] Nancy Girard CRNP [address] [place] [phone] Encounter for supervision of normal first in second trimester* Allergies No known active allergiesdocumented as of this encounter (statuses as of 10/11/2023) Medications Medication Sig Dispensed Refills Start Date End Date Status 6.75-0.2 MG Oral Tablet Take by mouth. Active documented as of this encounter (statuses as of 10/11/2023) Active Problems Problem Noted Date Diagnosed Date , normal first 07/19/2023 Estimated Date of Delivery Comme nts Yes 02/01/2024 Based on last me nstrual period of 04/27/2023 documented as of this encounter (statuses as of 10/11/2023) Social History Tobacco Use Types Packs/Day Years Used Date Smoking Tobacco: Never Smokeless Tobacco: Never Alcohol Use Standard Drinks/Week Comments Never 0 (1 standard drink = 0.6 oz pur e alcohol) [place] Depression Scale Answer Date Recorded [place] Depression Scale Total 6 07/19/2023 The thought [...] Sign Reading Time Taken Comments Blood Pressure 124/84 10/11/2023 10:30 AM EDT Pulse - - Temperature - - Respiratory Rate - - Oxygen Saturation - - Inhaled Oxygen Concentration - - Weight 89.4 kg (197 lb) 10/11/2023 10:30 AM EDT Height 170.2 cm (5' 7") 10/11/2023 10:30 AM EDT Body Mass Index 30.85 10/11/2023 10:30 AM EDT documented in this encounter Progress Notes * Nancy Girard CRNP - 10/11/2023 10:38 AM EDT 23w6d Complaints: none Feeling well. Good FM. No contractions, bleeding, or LOF. Glucola with next visit. RICKY Roberson documented in this encounter Nursing Notes * Allie Gleason LPN - 10/11/2023 10:36 AM EDT 23w6d Denies concerns documented in this encounter Plan of Treatment Upcoming Encounters Date Type Department Care Team (Late st Contact Info) Description 11/08/2023 10:20 AM EDT Laboratory Laboratory, [facility] [address] [place] [id number] [facility] [address] [place] [id number] 11/08/2023 10:30 AM EDT Office Visit Gynecology/Obstetrics [facility] [address] [place] [id number] Nancy Girard CRNP [address] [place] [phone] Scheduled Orders Name Type Priority Associated Diagnoses Orde r Schedule 50-G GESTATIONAL GLUCOSE, 1 HOUR Lab Routine Encounter for supervision of normal first in second trimester Expected: 11/11/2023 (Approximate), Expires: 10/10/2024 CBC WITH WBC DIFFERENTIAL AND ANEMIA REFLEX WORKUP Lab Routine Encounter for supervision of normal first in second trimester Expected: 11/11/2023 (Approximate), Expires: 10/10/2024 SYPHILIS ANTIBODY SCREEN WITH REFLEX TO RPR Lab Routine Encounter for supervision of normal first in second trimester Expected: 11/11/2023 (Approximate), Expires: 10/10/2024 Health Maintenance Due Date Last Done Comments Depression Screening 2006 DTaP,Tdap,and Td Vaccines (1 - Tdap) 2013 Hepatitis B Vaccine (1 of 3 - 19+ 3-dose series) 2013 COVID-19 Vaccine ( - 2022-2 4 season) 2022 Influenza Vaccine (FLU shot) (#1) 2023 Pap Smear 07/18/2026 07/19/2023 HPV (Gardasil) Vaccine Aged Out No lo [...]
[2024-01-30] MEDS: miSOPROStoL 50 MCG TAB PO SCH (07:00)
[2024-01-30] MEDS: LACTATED RINGER'S 1,000 ML IV SCH (08:00)
--- NOTE | 2024-01-30 08:12 | Obstetrical Progress Note ---
Date of Service January 30, 2024 Assessment & Plan Admission and Anticipated Discharge Date Admission Date: January 29, 2024 Subjective Patient seen and examined. She was admitted by Dr. Diaz yesterday for induction of labor for GDM A1. She received Cervidil for cervical ripening which was removed at 1 AM this morning. Nursing staff unable to give p.o. Cytotec due to no acceleration on heart rate monitoring with occasional short lasting variable decelerations. her blood pressures were also elevated the latest 1 is in the severe range 179/89. When I came to into the room patient was feeling well, smiling. She declines headaches, change in her vision, nausea vomiting, chest pain, shortness of breath. I checked her cervix, 2-3 cm, 50% effaced, head is high at -3 station. Patient started to have shaking episodes and complained of long contraction. Plan to monitor closely, start IV fluid hydration, stat labs, stat labetalol, start IV magnesium for seizure prophylaxis. Patient understands all and agrees with plan. Results & Data Vital Signs (Past 12 Hours) Vital Signs Temp Pulse Resp BP Pulse Ox 01/30/24 08:07 95 H 159/91 H 01/30/24 08:05 98 H 98 01/30/24 07:33 36.8 C 18 01/30/24 07:29 116 H 179/84 H 01/30/24 06:42 81 150/89 H 01/30/24 05:35 36.7 C 01/30/24 00:13 36.8 C 97 H 18 156/89 H
[2024-01-30] MEDS: MAGNESIUM SULFATE / WTR 40 GM/1,000 ML BAG IV SCH (08:23)
[2024-01-30 08:27] LABS: Basophils # (auto) 0.04 K/uL (0.00-0.20); Basophils % (auto) 0.5 %; Eosinophils # (auto) 0.09 K/uL (0.00-0.50); Eosinophils % (auto) 1.1 %; Hemoglobin 14.9 g/dl (12.0-16.0); Immature Granulocytes # (auto) 0.02 K/uL (0.01-0.20); Immature Granulocytes % (auto) 0.2 %; Lymphocytes # (auto) 2.42 K/uL (1.20-3.40); Lymphocytes % (auto) 29.4 %; Mean Corpuscular Hemoglobin 29.4 pg (25.0-34.0); Mean Corpuscular Hgb Conc 33.9 g/dL (32.0-36.0); Mean Corpuscular Volume 86.8 fL (80.0-100.0); Mean Platelet Volume 10.1 fL (9.4-12.4); Monocytes # (auto) 1.06 K/uL (0.11-0.59); Monocytes % (auto) 12.9 %; Neutrophils % (auto) 55.9 %; Platelet Count 305 K/uL (130-400); RDW Coefficient of Variation 15.8 % (11.5-14.5); RDW Standard Deviation 49.7 fL (36.4-46.3); Red Blood Count 5.07 M/uL (4.20-5.40); White Blood Count 8.23 K/ul (4.8-10.8)
[2024-01-30] MEDS: LABETALOL HCL 100 MG TAB PO STA (08:27)
[2024-01-30] MEDS: MAG SULFATE 4GM BOLUS FROM BAG IV ONE (08:39)
[2024-01-30 08:42] LABS: Albumin Globulin Ratio 1.1 (0.9-2); Albumin Level 3.8 gm/dl (3.4-5.0); BUN Creatinine Ratio 17.3 (10-20); Bilirubin,Total 0.3 mg/dl (0.2-1.0); Calcium 10.1 mg/dl (8.6-10.3); Creatinine Clr Calc Pharmacy 189.2 ml/min; Globulin 3.4 gm/dl (2.5-4.0); Potassium 4.4 mmol/L (3.5-5.1); Total Protein 7.2 gm/dl (6.0-8.3)
[2024-01-30] MEDS: MAGNESIUM SULFATE 40GM / WTR 1,000 ML BAG IV ONE (08:55)
[2024-01-30] MEDS: MAG SULFATE 50% 1GM/2ML 10ML VIAL ONE (08:55)
--- NOTE | 2024-01-30 09:04 | Obstetrical Progress Note ---
Date of Service January 30, 2024 Assessment & Plan Admission and Anticipated Discharge Date Admission Date: January 29, 2024 Subjective Patient is reevaluated. (Done bed side US earlier, vertex, FHR 140's, FM's seen, tone normal, unable to continue to look for breathing due to patients discomfort.) Now Feels better, no more pain nor shaking 500 ml of LR bolus was given, IV Magnesium was started Campbell drained 1200 ml clear urine BP's came down FHR 140's, varibility is between minimal to moderate, No decelerations, VE repeat for scalp stimulation, FHR increased to 150 for 10 sec Cervix 3-4 cm/ 60%/ -2, amniotic bag felt Labs normal Lab Results 01/29/24 01/29/24 01/29/24 Range/Units 11:51 11:54 12:45 WBC 7.13 (4.8-10.8) K/ul RBC 4.98 (4.20-5.40) M/uL Hgb 14.6 (12.0-16.0) g/dl Hct 42.2 (37.0-47.0) % MCV 84.7 (80.0-100.0) fL MCH 29.3 (25.0-34.0) pg MCHC 34.6 (32.0-36.0) g/dL RDW Std Deviation 48.1 H (36.4-46.3) fL RDW Coeff of [place] 15.6 H (11.5-14.5) % Plt Count 293 (130-400) K/uL MPV 10.2 (9.4-12.4) fL Immature Gran % (Auto) % Neut % (Auto) % Lymph % (Auto) % [place] % (Auto) % Eos % (Auto) % Baso % (Auto) % Neut # (Auto) (1.40-6.50) K/uL Lymph # (Auto) (1.20-3.40) K/uL [place] # (Auto) (0.11-0.59) K/uL Eos # (Auto) (0.00-0.50) K/uL Baso # (Auto) (0.00-0.20) K/uL Immature Gran # (Auto) (0.01-0.20) K/uL Sodium 136 (136-145) mmol/L Potassium 3.9 (3.5-5.1) mmol/L Chloride 107 (98-107) mmol/L Carbon Dioxide 20 L (21-32) mmol/L Anion Gap 9 (3-11) BUN 11 (6-23) mg/dl Creatinine 0.62 (0.6-1.2) mg/dl Est Cr Clr Drug Dosing 158.6 ml/min eGFR 123.55 BUN/Creatinine Ratio 17.7 (10-20) Glucose 165 H (70-99(Fasting)) mg/dl POC Glucose 134 H (70-99) mg/dl Uric Acid 5.4 (2.6-7.2) mg/dl Calcium 9.5 (8.6-10.3) mg/dl Total Bilirubin 0.2 (0.2-1.0) mg/dl Direct Bilirubin 0.1 (0-0.2) mg/dl AST 30 (13-39) U/L ALT 30 (7-52) U/L Alkaline Phosphatase 122 H (34-104) U/L Lactate Dehydrogenase 206 (86-244) U/L Total Protein 6.9 (6.0-8.3) gm/dl Albumin 3.7 (3.4-5.0) gm/dl Globulin 3.2 (2.5-4.0) gm/dl Albumin/Globulin Ratio 1.2 (0.9-2) Ur Random Creatinine 55.3 mg/dl U Random Total Protein 42.2 H (0-11.9) mg/dl Protein/Creatinin Ratio 0.8 H (0-0.2) Treponema pallidum Ab Negative (Negative) 01/30/24 Range/Units 08:12 WBC 8.23 (4.8-10.8) K/ul RBC 5.07 (4.20-5.40) M/uL Hgb 14.9 (12.0-16.0) g/dl Hct 44.0 (37.0-47.0) % MCV 86.8 (80.0-100.0) fL MCH 29.4 (25.0-34.0) pg MCHC 33.9 (32.0-36.0) g/dL RDW Std Deviation 49.7 H (36.4-46.3) fL RDW Coeff of [place] 15.8 H (11.5-14.5) % Plt Count 305 (130-400) K/uL MPV 10.1 (9.4-12.4) fL Immature Gran % (Auto) 0.2 % Neut % (Auto) 55.9 % Lymph % (Auto) 29.4 % [place] % (Auto) 12.9 % Eos % (Auto) 1.1 % Baso % (Auto) 0.5 % Neut # (Auto) 4.60 (1.40-6.50) K/uL Lymph # (Auto) 2.42 (1.20-3.40) K/uL [place] # (Auto) 1.06 H (0.11-0.59) K/uL Eos # (Auto) 0.09 (0.00-0.50) K/uL Baso # (Auto) 0.04 (0.00-0.20) K/uL Immature Gran # (Auto) 0.02 (0.01-0.20) K/uL Sodium 136 (136-145) mmol/L Potassium 4.4 (3.5-5.1) mmol/L Chloride 106 (98-107) mmol/L Carbon Dioxide 21 (21-32) mmol/L Anion Gap 9 (3-11) BUN 9 (6-23) mg/dl Creatinine 0.52 L (0.6-1.2) mg/dl Est Cr Clr Drug Dosing 189.2 ml/min eGFR 128.90 BUN/Creatinine Ratio 17.3 (10-20) Glucose 92 (70-99(Fasting)) mg/dl POC Glucose (70-99) mg/dl Uric Acid (2.6-7.2) mg/dl Calcium 10.1 (8.6-10.3) mg/dl Total Bilirubin 0.3 (0.2-1.0) mg/dl Direct Bilirubin (0-0.2) mg/dl AST 25 (13-39) U/L ALT 30 (7-52) U/L Alkaline Phosphatase 130 H (34-104) U/L Lactate Dehydrogenase (86-244) U/L Total Protein 7.2 (6.0-8.3) gm/dl Albumin 3.8 (3.4-5.0) gm/dl Globulin 3.4 (2.5-4.0) gm/dl Albumin/Globulin Ratio 1.1 (0.9-2) Ur Random Creatinine mg/dl U Random Total Protein (0-11.9) mg/dl Protein/Creatinin Ratio (0-0.2) Treponema pallidum Ab (Negative) Start low dose oxytocin and proceed to [facility]ISTANT if able Continue to monitor closely Results & Data Vital Signs (Past 12 Hours) Vital Signs Temp Pulse Resp BP Pulse Ox 01/30/24 08:55 107 H 96 01/30/24 08:50 106 H 97 01/30/24 08:45 105 H 107/82 97 01/30/24 08:40 101 H 95 01/30/24 08:35 98 H 97 01/30/24 08:30 97 01/30/24 08:30 105 H 01/30/24 08:30 103 H 141/90 H 01/30/24 08:25 102 H 97 01/30/24 08:24 93 H 136/85 01/30/24 08:20 91 H 98 01/30/24 08:15 94 H 99 01/30/24 08:10 95 H 98 01/30/24 08:07 95 H 159/91 H 01/30/24 08:05 98 H 98 01/30/24 07:33 36.8 C 18 01/30/24 07:29 116 H 179/84 H 01/30/24 06:42 81 150/89 H 01/30/24 05:35 36.7 C 01/30/24 00:13 36.8 C 97 H 18 156/89 H
[2024-01-30] MEDS: OXYTOCIN 30 UNITS/NSS 30 UNITS/500 ML BAG IV PRN (11:33)
[2024-01-30] MEDS: BUTORPHANOL TARTRATE 2 MG/ML VIAL IV PRN (12:57)
--- NOTE | 2024-01-30 14:51 | Anesthesiology Consultation ---
Date of Service January 30, 2024 Assessment & Plan (1) Encounter for pre-operative examination: Chart Review Chart Review: Acceptable Risk for Labor Epidural History Height/Weight Height: 5 ft 7 in Weight: 95.254 kg Allergies Allergy/AdvReac Type Severity Reaction Status Date / Time No Known Allergies Allergy Verified 01/29/24 11:50 Medications Home Medications Medication Instructions Recorded Confirmed Last Taken vit no.95-ferrous 1 tab PO DAILY 07/08/23 01/29/24 01/28/24 fumarate 28 mg-folic acid 800 mcg tablet () Active Medications Generic Name Dose Route Start Last Admin Trade Name Freq PRN Reason Stop Dose Admin Butorphanol Tartrate 1 mg 01/29/24 20:59 01/30/24 12:57 Butorphanol Tartrate 2 Mg/Ml Vial IV 02/28/24 20:58 1 mg Q2HWA PRN Administration Pain Magnesium Sulfate 40 gm in 1,000 mls @ 50 mls/hr 01/30/24 08:15 01/30/24 08:43 Magnesium Sulfate / Wtr IV 02/29/24 08:14 50 mls/hr .Q20H STANLEY Infusion Lactated Ringer's 1,000 mls @ 50 mls/hr 01/30/24 08:30 01/30/24 14:32 Lr IV 01/31/24 08:29 999 mls/hr .Q20H STANLEY Administration Oxytocin 30 units in 500 mls @ 6 mls/hr 01/30/24 10:44 01/30/24 14:00 Pitocin 30 Units/Nss IV 02/01/24 10:43 0.36 units/hr .Q24H PRN 6 mls/hr Labor Induction/Augmentation Titration Protocol 0.36 UNITS/HR Past Medical History Medical History (Updated 01/30/24 @ 14:52 by Rolf Antoine MD) Preeclampsia Gestational diabetes mellitus diet controlled Past Surgical History Surgical History No history of previous surgery Social History Smoking Status: Never smoker Hx Alcohol Use: No Hx Substance Use: No substance use type: does not use Physical Exam Vital Signs Last Vital Signs Temp 36.9 C 01/30/24 11:00 Pulse 115 H 01/30/24 14:45 Resp 18 01/30/24 14:00 BP 138/68 01/30/24 14:30 Pulse Ox 95 01/30/24 14:45 Testing Laboratory Results 01/30/24 08:12 01/30/24 08:12
[2024-01-30] MEDS: fentaNYL citrate PF 100 MCG/2 ML VIAL ONE (15:10)
[2024-01-30] MEDS: BUPIVACAINE 0.25% PF 30 ML VIAL ONE (15:10)
[2024-01-30] MEDS: fentANYL 2 MCG/ML BUPIVacaine 0.125%-NSS 100ML BAG ONE (15:11)
[2024-01-30] MEDS: ePHEDrine sulfate 50 MG/ML AMP ONE (15:42)
[2024-01-30] MEDS: LIDOCAINE 2%/EPINEPHRINE 1:200,000 20 ML PF ONE (15:43)
--- NOTE | 2024-01-30 16:33 | Obstetrical Progress Note ---
Date of Service January 30, 2024 Assessment & Plan Admission and Anticipated Discharge Date Admission Date: January 29, 2024 Subjective I have been watching the stip since this morning together with her nurse, FHR had been between 140-150's, variability with times of minimal and moderate, no decels, 10-15 bpm accels present Then she was given Stadol for pain by nursing team when we were in C section room and anesthesia was tied up. Variability decreased and then recovered. Unable to increase Oxytocin due to pain She then received epidural for pain, her BP dropped with FHR as well, she was given Ephedrine by anesthesia and FHR recovered to baseline 140's Now she is comfortable, denies OWENS/ Change in vision/N&V, sleepy from IV magnesium VE: 5/ 70%/ -1, bulging bag, AROM'ed scant clear fluid, FHR increased to 150's from 140's IUPC placed to titrate Oxytocin, started back on 2 miu/min Continue to monitor closely Results & Data Vital Signs (Past 12 Hours) Vital Signs Temp Pulse Resp BP Pulse Ox 01/30/24 16:25 97 H 96 01/30/24 16:20 104 H 98 01/30/24 16:19 105 H 128/62 01/30/24 16:15 103 H 95 01/30/24 16:10 99 H 97 01/30/24 16:05 106 H 98 01/30/24 16:03 115 H 153/67 H 01/30/24 16:00 103 H 96 01/30/24 15:58 106 H 149/57 H 01/30/24 15:55 104 H 98 01/30/24 15:53 105 H 153/71 H 01/30/24 15:50 104 H 97 01/30/24 15:49 102 H 147/60 H 01/30/24 15:45 105 H 96 01/30/24 15:43 108 H 156/66 H 01/30/24 15:40 108 H 161/70 H 98 01/30/24 15:37 100 H 154/68 H 01/30/24 15:36 18 01/30/24 15:36 18 01/30/24 15:35 100 H 97 01/30/24 15:34 105 H 147/65 H 01/30/24 15:31 99 H 16 151/67 H 01/30/24 15:30 18 01/30/24 15:30 100 H 96 01/30/24 15:29 102 H 106/54 L 01/30/24 15:25 92 H 106/47 L 93 01/30/24 15:24 16 01/30/24 15:24 16 01/30/24 15:23 95 H 89/43 L 01/30/24 15:20 98 H 20 95 01/30/24 15:19 100 H 112/49 L 01/30/24 15:18 36.4 C L 01/30/24 15:15 100 H 20 95 01/30/24 15:13 92 H 118/58 L 01/30/24 15:10 90 95 01/30/24 15:09 107 H 125/63 01/30/24 15:05 110 H 98 01/30/24 15:00 111 H 96 01/30/24 14:55 115 H 97 01/30/24 14:50 113 H 97 01/30/24 14:45 115 H 95 01/30/24 14:40 113 H 95 01/30/24 14:35 111 H 94 01/30/24 14:30 111 H 138/68 96 01/30/24 14:25 117 H 97 01/30/24 14:20 113 H 95 01/30/24 14:15 111 H 96 01/30/24 14:10 115 H 95 01/30/24 14:05 115 H 96 01/30/24 14:00 18 01/30/24 14:00 95 01/30/24 14:00 111 H 01/30/24 14:00 111 H 136/79 01/30/24 13:55 114 H 96 01/30/24 13:50 112 H 96 01/30/24 13:45 112 H 96 01/30/24 13:40 114 H 95 01/30/24 13:35 112 H 94 01/30/24 13:30 108 H 144/75 H 95 01/30/24 13:25 106 H 96 01/30/24 13:20 106 H 95 01/30/24 13:15 112 H 92 01/30/24 13:10 106 H 94 01/30/24 13:05 107 H 93 01/30/24 13:01 107 H 134/63 11/12/24 13:00 18 01/30/24 13:00 108 H 94 01/30/24 12:55 104 H 94 01/30/24 12:50 108 H 97 01/30/24 12:45 107 H 96 01/30/24 12:40 115 H 97 01/30/24 12:35 111 H 96 01/30/24 12:30 108 H 134/76 96 01/30/24 12:25 114 H 96 01/30/24 12:20 114 H 95 01/30/24 12:15 109 H 97 01/30/24 12:10 114 H 95 01/30/24 12:05 112 H 95 01/30/24 12:00 20 01/30/24 12:00 107 H 135/80 97 01/30/24 11:55 107 H 95 01/30/24 11:50 107 H 96 01/30/24 11:45 108 H 96 01/30/24 11:40 106 H 95 01/30/24 11:35 105 H 96 01/30/24 11:30 98 H 96 01/30/24 11:25 98 H 95 01/30/24 11:20 101 H 95 01/30/24 11:15 96 01/30/24 11:15 103 H 01/30/24 11:15 90 104/54 L 01/30/24 11:10 100 H 96 01/30/24 11:05 103 H 95 01/30/24 11:00 20 01/30/24 11:00 36.9 C 01/30/24 11:00 95 01/30/24 11:00 105 H 01/30/24 11:00 100 H 118/61 01/30/24 10:55 111 H 97 01/30/24 10:50 107 H 96 01/30/24 10:45 97 01/30/24 10:45 104 H 01/30/24 10:45 106 H 128/66 01/30/24 10:40 103 H 96 01/30/24 10:35 104 H 96 01/30/24 10:30 95 01/30/24 10:30 108 H 01/30/24 10:30 105 H 129/61 01/30/24 10:25 102 H 97 01/30/24 10:20 103 H 97 01/30/24 10:15 101 H 112/60 96 01/30/24 10:10 103 H 96 01/30/24 10:05 104 H 95 01/30/24 10:00 18 01/30/24 10:00 95 01/30/24 10:00 104 H 01/30/24 10:00 102 H 116/62 01/30/24 09:55 104 H 95 01/30/24 09:50 101 H 95 01/30/24 09:45 96 01/30/24 09:45 96 H 01/30/24 09:45 101 H 119/64 01/30/24 09:44 102 H 94 01/30/24 09:40 97 H 96 01/30/24 09:39 105 H 94 01/30/24 09:35 102 H 95 01/30/24 09:31 105 H 94 01/30/24 09:30 95 01/30/24 09:30 105 H 01/30/24 09:30 107 H 125/75 01/30/24 09:25 123 H 97 01/30/24 09:20 106 H 97 01/30/24 09:15 95 01/30/24 09:15 107 H 01/30/24 09:15 106 H 129/76 01/30/24 09:13 106 H 94 01/30/24 09:10 107 H 96 01/30/24 09:05 107 H 95 01/30/24 09:00 16 01/30/24 09:00 96 01/30/24 09:00 108 H 01/30/24 09:00 108 H 142/83 H 01/30/24 08:55 107 H 96 01/30/24 08:50 106 H 97 01/30/24 08:45 105 H 107/82 97 01/30/24 08:40 101 H 95 01/30/24 08:35 98 H 97 01/30/24 08:30 97 01/30/24 08:30 105 H 01/30/24 08:30 103 H 141/90 H 01/30/24 08:25 102 H 97 01/30/24 08:24 93 H 136/85 01/30/24 08:20 91 H 98 12 08:15 94 H 99 01/30/24 08:10 95 H 98 01/30/24 08:07 95 H 159/91 H 01/30/24 08:05 98 H 98 11/12/24 07:33 36.8 C 18 01/30/24 07:29 116 H 179/84 H 01/30/24 06:42 81 150/89 H 01/30/24 05:35 36.7 C
--- NOTE | 2024-01-30 19:17 | Obstetrical Progress Note ---
Date of Service January 30, 2024 Assessment & Plan Admission and Anticipated Discharge Date Admission Date: January 29, 2024 Subjective Patient is reevaluated She has been resting, no complaints No pain nor pressure FHR categ I [place] ctxs q 3-5 min, Oxytocin is 14 miu/min VE; 10/ 100%/ +1-+2 with contractions, patient does not feel anything Plan to labor down until she feels pressure or urge Continue to monitor closely Results & Data Vital Signs (Past 12 Hours) Vital Signs Temp Pulse Resp BP Pulse Ox 01/30/24 19:10 103 H 98 01/30/24 19:05 107 H 145/71 H 97 01/30/24 19:00 99 H 98 01/30/24 18:55 104 H 97 01/30/24 18:50 100 H 97 01/30/24 18:49 103 H 147/68 H 01/30/24 18:45 99 H 97 01/30/24 18:40 103 H 98 01/30/24 18:35 100 H 99 01/30/24 18:30 18 01/30/24 18:30 95 H 99 01/30/24 18:25 93 H 97 01/30/24 18:20 96 H 97 01/30/24 18:19 93 H 131/68 01/30/24 18:15 90 98 01/30/24 18:10 86 98 01/30/24 18:05 99 H 98 01/30/24 18:03 36.6 C 95 H 136/68 01/30/24 18:00 93 H 16 98 01/30/24 17:55 86 98 01/30/24 17:50 92 H 98 01/30/24 17:49 94 H 140/75 01/30/24 17:45 88 98 01/30/24 17:40 88 98 01/30/24 17:35 93 H 98 01/30/24 17:34 91 H 140/65 01/30/24 17:30 18 01/30/24 17:30 18 01/30/24 17:30 18 01/30/24 17:30 88 18 98 01/30/24 17:25 84 97 01/30/24 17:20 94 H 98 01/30/24 17:19 88 133/63 01/30/24 17:15 96 H 97 01/30/24 17:10 94 H 98 11/12/24 17:05 99 01/30/24 17:05 95 H 01/30/24 17:05 93 H 133/63 01/30/24 17:00 87 16 98 01/30/24 16:55 86 97 01/30/24 16:50 94 H 98 01/30/24 16:49 92 H 121/61 01/30/24 16:45 88 98 01/30/24 16:40 101 H 97 01/30/24 16:35 103 H 98 01/30/24 16:34 107 H 111/59 L 01/30/24 16:30 18 01/30/24 16:30 110 H 99 01/30/24 16:29 36.9 C 01/30/24 16:25 97 H 96 01/30/24 16:20 104 H 98 01/30/24 16:19 105 H 128/62 01/30/24 16:15 103 H 95 01/30/24 16:10 99 H 97 01/30/24 16:05 106 H 98 01/30/24 16:03 115 H 153/67 H 01/30/24 16:00 103 H 96 01/30/24 15:58 106 H 149/57 H 01/30/24 15:55 104 H 98 01/30/24 15:53 105 H 153/71 H 01/30/24 15:50 104 H 97 01/30/24 15:49 102 H 147/60 H 01/30/24 15:45 105 H 96 01/30/24 15:43 108 H 156/66 H 01/30/24 15:40 108 H 161/70 H 98 01/30/24 15:37 100 H 154/68 H 01/30/24 15:36 18 01/30/24 15:36 18 01/30/24 15:35 100 H 97 01/30/24 15:34 105 H 147/65 H 01/30/24 15:31 99 H 16 151/67 H 01/30/24 15:30 18 01/30/24 15:30 100 H 96 01/30/24 15:29 102 H 106/54 L 01/30/24 15:25 92 H 106/47 L 93 01/30/24 15:24 16 01/30/24 15:24 16 01/30/24 15:23 95 H 89/43 L 01/30/24 15:20 98 H 20 95 01/30/24 15:19 100 H 112/49 L 01/30/24 15:18 36.4 C L 01/30/24 15:15 100 H 20 95 01/30/24 15:13 92 H 118/58 L 01/30/24 15:10 90 95 01/30/24 15:09 107 H 125/63 01/30/24 15:05 110 H 98 01/30/24 15:00 111 H 96 01/30/24 14:55 115 H 97 01/30/24 14:50 113 H 97 01/30/24 14:45 115 H 95 01/30/24 14:40 113 H 95 01/30/24 14:35 111 H 94 01/30/24 14:30 111 H 138/68 96 01/30/24 14:25 117 H 97 01/30/24 14:20 113 H 95 01/30/24 14:15 111 H 96 01/30/24 14:10 115 H 95 01/30/24 14:05 115 H 96 01/30/24 14:00 18 01/30/24 14:00 95 01/30/24 14:00 111 H 01/30/24 14:00 111 H 136/79 01/30/24 13:55 114 H 96 01/30/24 13:50 112 H 96 01/30/24 13:45 112 H 96 01/30/24 13:40 114 H 95 01/30/24 13:35 112 H 94 01/30/24 13:30 108 H 144/75 H 95 01/30/24 13:25 106 H 96 01/30/24 13:20 106 H 95 01/30/24 13:15 112 H 92 01/30/24 13:10 106 H 94 01/30/24 13:05 107 H 93 01/30/24 13:01 107 H 134/63 01/30/24 13:00 18 01/30/24 13:00 108 H 94 01/30/24 12:55 104 H 94 01/30/24 12:50 108 H 97 01/30/24 12:45 107 H 96 01/30/24 12:40 115 H 97 01/30/24 12:35 111 H 96 01/30/24 12:30 108 H 134/76 96 01/30/24 12:25 114 H 96 01/30/24 12:20 114 H 95 01/30/24 12:15 109 H 97 01/30/24 12:10 114 H 95 01/30/24 12:05 112 H 95 01/30/24 12:00 20 01/30/24 12:00 107 H 135/80 97 01/30/24 11:55 107 H 95 01/30/24 11:50 107 H 96 01/30/24 11:45 108 H 96 01/30/24 11:40 106 H 95 01/30/24 11:35 105 H 96 01/30/24 11:30 98 H 96 01/30/24 11:25 98 H 95 01/30/24 11:20 101 H 95 01/30/24 11:15 96 01/30/24 11:15 103 H 01/30/24 11:15 90 104/54 L 01/30/24 11:10 100 H 96 01/30/24 11:05 103 H 95 01/30/24 11:00 20 01/30/24 11:00 36.9 C 01/30/24 11:00 95 01/30/24 11:00 105 H 01/30/24 11:00 100 H 118/61 01/30/24 10:55 111 H 97 01/30/24 10:50 107 H 96 01/30/24 10:45 97 01/30/24 10:45 104 H 01/30/24 10:45 106 H 128/66 01/30/24 10:40 103 H 96 01/30/24 10:35 104 H 96 01/30/24 10:30 95 01/30/24 10:30 108 H 01/30/24 10:30 105 H 129/61 01/30/24 10:25 102 H 97 01/30/24 10:20 103 H 97 01/30/24 10:15 101 H 112/60 96 01/30/24 10:10 103 H 96 01/30/24 10:05 104 H 95 01/30/24 10:00 18 01/30/24 10:00 95 01/30/24 10:00 104 H 01/30/24 10:00 102 H 116/62 11/12/24 09:55 104 H 95 01/30/24 09:50 101 H 95 24 09:45 96 01/30/24 09:45 96 H 01/30/24 09:45 101 H 119/64 01/30/24 09:44 102 H 94 01/30/24 09:40 97 H 96 01/30/24 09:39 105 H 94 01/30/24 09:35 102 H 95 01/30/24 09:31 105 H 94 01/30/24 09:30 95 01/30/24 09:30 105 H 24 09:30 107 H 125/75 01/30/24 09:25 123 H 97 01/30/24 09:20 106 H 97 01/30/24 09:15 95 01/30/24 09:15 107 H 01/30/24 09:15 106 H 129/76 01/30/24 09:13 106 H 94 01/30/24 09:10 107 H 96 01/30/24 09:05 107 H 95 01/30/24 09:00 16 01/30/24 09:00 96 01/30/24 09:00 108 H 01/30/24 09:00 108 H 142/83 H 01/30/24 08:55 107 H 96 01/30/24 08:50 106 H 97 01/30/24 08:45 105 H 107/82 97 01/30/24 08:40 101 H 95 01/30/24 08:35 98 H 97 01/30/24 08:30 97 01/30/24 08:30 105 H 01/30/24 08:30 103 H 141/90 H 01/30/24 08:25 102 H 97 24 08:24 93 H 136/85 01/30/24 08:20 91 H 98 24 08:15 94 H 99 24 08:10 95 H 98 24 08:07 95 H 159/91 H 01/30/24 08:05 98 H 98 24 07:33 36.8 C 18 01/30/24 07:29 116 H 179/84 H
[2024-01-30] MEDS ORDERED: fentaNYL citrate PF 100 MCG/2 ML VIAL EPI PRN (20:13)
[2024-01-30] MEDS ORDERED: LIDOCAINE 2% MPF LOCAL 5 ML VIAL EPI PRN (20:13)
[2024-01-30] MEDS ORDERED: NALOXONE HCL 1 MG in SODIUM CHLORIDE 0.9% 1,000 ML IV PRN (20:13)
[2024-01-30] MEDS ORDERED: ePHEDrine sulfate 50 MG/ML AMP IV PRN (20:13)
[2024-01-30] MEDS ORDERED: fentANYL 2 MCG/ML BUPIVacaine 0.125%-NSS 100ML BAG EPI PRN (20:13)
[2024-01-30] MEDS ORDERED: NALOXONE HCL 0.4 MG/1 ML VIAL/CARP IV PRN (20:13)
[2024-01-30] MEDS ORDERED: ONDANSETRON INJ 2 MG/ML 2 ML VIAL IV PRN ×2 (20:13→20:52)
[2024-01-30] MEDS ORDERED: SODIUM CHLORIDE 0.9% PF INJ 10 ML VIAL EPI PRN (20:13)
[2024-01-30] MEDS ORDERED: ROPIVACAINE 0.5% PF 5 MG/ML 20 ML VIAL EPI PRN (20:13)
[2024-01-30] MEDS ORDERED: BUPIVACAINE 0.25% PF 30 ML VIAL EPI PRN (20:13)
[2024-01-30] MEDS: LABETALOL HCL 100 MG TAB PO ONE ×2 (20:15→23:16)
[2024-01-30] MEDS: LABETALOL HCL IV 5 MG/ML 20ML IV STA (21:17)
[2024-01-30] MEDS ORDERED: OXYTOCIN 30 UNITS/NSS 30 UNITS/500 ML BAG IV PRN (22:22)
[2024-01-30] MEDS ORDERED: bisacodyL 10 MG SUPP PR PRN (22:22)
[2024-01-30] MEDS ORDERED: oxyCODONE/ACETAMINOPHEN 5mg/325mg TAB PO PRN (22:22)
[2024-01-30] MEDS ORDERED: HYDROCORTISONE ACETATE 25 MG SUPP PR PRN (22:22)
--- NOTE | 2024-01-30 22:34 | Delivery Summary ---
Vaginal Delivery Summary Date of Service January 30, 2024 Vaginal Delivery Summary Patient was found to be fully dilated and desired to push. She pushed for about 30 min and delivered the head and then shoulders with minimal traction. There was a nuchal cordx1, which was reduced while delivering the baby. The baby was handed off to the mother. The cord was clampedx2 and cut at 1 minute. The vagina and perineum were checked and found to have 1st degree labial lacerations ob both sided. Vagina and perineum were intact. Those were repaired repaired with 3/0 vicryl on SH needle. The placenta was delivered spontaneously as intact and complete. The uterus was explored and found to be empty. The fundus was firm QBL: 77 ml The baby was a viable male , Apgars 8/9, the weight is pending The mother and the baby tolerated the procedure well. No complications happened and I was present during whole procedure. I recommended placenta to be examined but the patient desired to take it to home.
[2024-01-30] MEDS: MEASLES, MUMPS & RUBELLA VIRUS VACCINE (MMR) 0.5ML VIAL SQ ONE (22:52)
[2024-01-30] MEDS: fentaNYL citrate PF 100 MCG/2 ML VIAL EPI STA (23:02)
[2024-01-30] MEDS: SODIUM CHLORIDE 0.9% PF INJ 10 ML VIAL EPI STA (23:02)
[2024-01-30] MEDS: BUPIVACAINE 0.25% PF 30 ML VIAL EPI STA (23:02)
[2024-01-30] MEDS: LIDOCAINE 2%/EPINEPHRINE 1:200,000 20 ML PF EPI STA (23:02)
[2024-01-30] MEDS: SODIUM CHLORIDE 0.9% PF INJ 10 ML VIAL ONE (23:03)
[2024-01-31] MEDS: IBUPROFEN 600 MG TAB PO PRN (00:21)
[2024-01-31] MEDS: BENZOCAINE 20% SPRY 85 APPLN/85 GM CAN EXT PRN (00:22)
[2024-01-31] MEDS: DIPHTHER/TETAN/PERTUS Vaccine (Tdap, Adol/Adult) 0.5mL IM ONE (01:15)
[2024-01-31 06:39] LABS: Hematocrit (blood only) 38.1 % (37.0-47.0); Hemoglobin 12.7 g/dl (12.0-16.0); Mean Corpuscular Hemoglobin 28.9 pg (25.0-34.0); Mean Corpuscular Hgb Conc 33.3 g/dL (32.0-36.0); Mean Corpuscular Volume 86.8 fL (80.0-100.0); Mean Platelet Volume 10.3 fL (9.4-12.4); Platelet Count 270 K/uL (130-400); RDW Coefficient of Variation 15.8 % (11.5-14.5); RDW Standard Deviation 49.6 fL (36.4-46.3); Red Blood Count 4.39 M/uL (4.20-5.40); White Blood Count 12.75 K/ul (4.8-10.8)
[2024-01-31] MEDS: PRENATAL VITAMIN 1 TAB PO SCH (08:46)
[2024-01-31] MEDS: LABETALOL HCL 100 MG TAB PO SCH (08:46)
[2024-01-31] MEDS: DOCUSATE SODIUM 100 MG CAP PO SCH (08:46)
[2024-01-31] MEDS: FERROUS SULFATE 325 MG TAB PO SCH (08:46)
--- NOTE | 2024-01-31 10:04 | Obstetrical Progress Note ---
Date of Service January 31, 2024 Assessment & Plan Admission and Anticipated Discharge Date Admission Date: January 29, 2024 Subjective abdomen soft and non tender vaginal bleeding scant hgb 12.7 no calf tenderness urine output good catheter in place on labetalol 100 mg bid blood pressures are good Results & Data Vital Signs (Past 12 Hours) Vital Signs Temp Pulse Resp BP Pulse Ox Pulse Ox O2 Del Method 01/31/24 09:53 99 H 100 01/31/24 09:48 94 H 100 01/31/24 09:43 96 H 99 01/31/24 09:38 95 H 99 01/31/24 09:33 102 H 100 01/31/24 09:30 97 H 132/67 01/31/24 09:28 99 H 99 01/31/24 09:23 96 H 99 01/31/24 09:18 98 H 100 01/31/24 09:13 98 H 100 01/31/24 09:08 95 H 100 01/31/24 09:03 95 H 100 01/31/24 08:58 92 H 100 01/31/24 08:53 93 H 100 01/31/24 08:48 97 H 100 01/31/24 08:44 90 134/66 01/31/24 08:43 92 H 100 01/31/24 08:38 95 H 100 01/31/24 08:33 103 H 99 01/31/24 08:30 103 H 127/68 01/31/24 08:28 97 H 100 01/31/24 08:23 96 H 100 01/31/24 08:18 95 H 100 01/31/24 08:13 94 H 99 01/31/24 08:08 94 H 100 01/31/24 08:03 108 H 98 01/31/24 07:58 96 H 100 01/31/24 07:53 93 H 98 01/31/24 07:48 93 H 99 01/31/24 07:43 93 H 99 01/31/24 07:38 90 100 01/31/24 07:33 96 H 99 01/31/24 07:30 36.9 C 18 01/31/24 07:30 18 01/31/24 07:30 96 H 117/67 01/31/24 07:28 98 H 99 01/31/24 07:23 101 H 98 01/31/24 07:18 100 H 99 01/31/24 07:13 96 H 97 01/31/24 07:08 100 H 97 01/31/24 07:03 99 H 98 01/31/24 06:58 98 H 98 01/31/24 06:53 99 H 98 01/31/24 06:48 98 H 98 01/31/24 06:43 97 H 98 01/31/24 06:38 96 H 98 01/31/24 06:33 95 H 98 01/31/24 06:31 96 H 132/57 L 01/31/24 06:30 18 01/31/24 06:28 96 H 99 01/31/24 06:23 94 H 99 01/31/24 06:18 89 100 01/31/24 06:13 94 H 100 01/31/24 06:08 93 H 99 01/31/24 06:03 97 H 100 01/31/24 05:58 96 H 100 01/31/24 05:53 92 H 100 01/31/24 05:48 89 100 01/31/24 05:43 97 H 100 01/31/24 05:38 98 H 100 01/31/24 05:33 98 H 100 01/31/24 05:30 18 01/31/24 05:30 97 H 133/66 01/31/24 05:28 100 H 100 01/31/24 05:23 100 H 100 01/31/24 05:18 103 H 100 01/31/24 05:13 101 H 100 01/31/24 05:08 98 H 100 01/31/24 05:03 97 H 100 01/31/24 04:58 104 H 100 01/31/24 04:53 100 H 100 01/31/24 04:48 102 H 100 01/31/24 04:43 101 H 100 01/31/24 04:38 102 H 100 01/31/24 04:33 97 H 100 01/31/24 04:30 98 H 123/74 01/31/24 04:28 93 H 100 01/31/24 04:25 36.8 C 18 01/31/24 04:25 18 01/31/24 04:25 100 Room Air 01/31/24 04:23 98 H 100 01/31/24 04:18 97 H 100 01/31/24 04:13 99 H 100 01/31/24 04:08 94 H 100 1124 04:03 94 H 100 24 03:58 94 H 100 01/31/24 03:53 94 H 100 01/31/24 03:48 97 H 99 01/31/24 03:43 95 H 99 01/31/24 03:38 97 H 98 01/31/24 03:33 96 H 98 01/31/24 03:30 98 H 126/58 L 01/31/24 03:29 18 01/31/24 03:28 97 H 100 01/31/24 03:23 98 H 100 24 03:18 100 H 100 24 03:13 97 H 100 01/31/24 03:08 102 H 100 01/31/24 03:03 102 H 100 01/31/24 02:58 102 H 100 01/31/24 02:53 101 H 100 01/31/24 02:48 104 H 100 01/31/24 02:43 103 H 100 01/31/24 02:38 109 H 100 01/31/24 02:33 113 H 100 01/31/24 02:30 18 01/31/24 02:30 105 H 131/62 01/31/24 02:28 111 H 100 01/31/24 02:23 104 H 100 01/31/24 02:18 105 H 100 01/31/24 02:13 107 H 100 01/31/24 02:08 112 H 100 01/31/24 02:03 107 H 100 01/31/24 01:58 102 H 100 01/31/24 01:53 106 H 100 01/31/24 01:48 105 H 100 24 01:43 107 H 100 24 01:38 101 H 100 24 01:33 102 H 100 24 01:30 18 01/31/24 01:29 106 H 135/59 L 01/31/24 01:28 104 H 100 24 01:23 100 H 100 24 01:18 108 H 100 24 01:15 111 H 147/67 H 24 01:13 110 H 100 24 01:08 111 H 100 24 01:03 113 H 100 01/31/24 00:58 95 H 98 01/31/24 00:57 95 H 152/72 H 01/31/24 00:44 96 H 164/76 H 01/31/24 00:30 18 01/31/24 00:30 37.0 C 01/31/24 00:29 101 H 163/79 H 01/31/24 00:15 100 H 172/86 H 01/31/24 00:00 107 H 131/79 01/30/24 23:44 99 H 148/75 H 01/30/24 23:29 98 H 160/84 H 01/30/24 23:14 102 H 168/85 H 01/30/24 23:04 18 01/30/24 23:00 105 H 174/98 H 01/30/24 22:44 101 H 159/90 H 01/30/24 22:30 18 01/30/24 22:29 107 H 161/84 H 01/30/24 22:19 107 H 142/76 H 01/30/24 22:05 80 L 01/30/24 22:05 148 H 01/30/24 22:05 122 H 87 L 01/30/24 22:00 111 H 100 01/30/24 21:59 105 H 83 L
[2024-01-31] MEDS: ACETAMINOPHEN 325 MG TAB PO PRN (12:50)
[2024-01-31] MEDS: bisacodyL 5 MG TABEC PO SCH (19:44)
[2024-01-31 23:20] VITALS: RESP 16
[2024-02-01 06:27] LABS: Hematocrit (blood only) 35.2 % (37.0-47.0); Hemoglobin 11.6 g/dl (12.0-16.0)
--- NOTE | 2024-02-01 09:11 | Obstetrical Progress Note ---
Date of Service February 01, 2024 Subjective Ambulation: ambulating normally Voiding: no voiding problems Passing Gas:: Yes Diet Tolerance:: regular diet Lochia:: Small Feeding Type:: bottle feeding Current Pain Level(1-10): 0 doing well Physical Exam Constitutional WD/WN, vitals as above Gastrointestinal (Abdomen) Inspection/Auscultation: abdomen normal to inspection abdomen soft and non-tender. fundus firm below U. Musculoskeletal Extremities: extremities normal to inspection Skin no rashes, warm and dry Neurologic patellar DTR's 2+ bilat, sensation intact Psychiatric A+Ox3, euthymic affect Results & Data Vital Signs (Past 12 Hours) Vital Signs Temp Pulse Pulse Resp BP BP Pulse Ox 01/31/24 23:05 36.6 C 73 16 121/70 01/31/24 22:00 18 01/31/24 21:57 93 H 123/75 01/31/24 21:56 86 100 01/31/24 21:51 90 100 01/31/24 21:46 89 100 01/31/24 21:41 96 H 100 01/31/24 21:36 91 H 100 01/31/24 21:31 91 H 100 01/31/24 21:26 89 100 01/31/24 21:21 93 H 100 01/31/24 21:16 90 100 01/31/24 21:11 97 H 100 O2 Del Method 01/31/24 23:05 Room Air 01/31/24 22:00 01/31/24 21:57 01/31/24 21:56 01/31/24 21:51 01/31/24 21:46 01/31/24 21:41 01/31/24 21:36 01/31/24 21:31 01/31/24 21:26 01/31/24 21:21 01/31/24 21:16 01/31/24 21:11 Laboratory Results 01/29/24 01/29/24 01/29/24 11:51 11:54 12:45 WBC 7.13 RBC 4.98 Hgb 14.6 Hct 42.2 MCV 84.7 MCH 29.3 MCHC 34.6 RDW Std Deviation 48.1 H RDW Coeff of [place] 15.6 H Plt Count 293 MPV 10.2 Immature Gran % (Auto) Neut % (Auto) Lymph % (Auto) [place] % (Auto) Eos % (Auto) Baso % (Auto) Neut # (Auto) Lymph # (Auto) [place] # (Auto) Eos # (Auto) Baso # (Auto) Immature Gran # (Auto) Sodium 136 Potassium 3.9 Chloride 107 Carbon Dioxide 20 L Anion Gap 9 BUN 11 Creatinine 0.62 Est Cr Clr Drug Dosing 158.6 eGFR 123.55 BUN/Creatinine Ratio 17.7 Glucose 165 H POC Glucose 134 H Uric Acid 5.4 Calcium 9.5 Total Bilirubin 0.2 Direct Bilirubin 0.1 AST 30 ALT 30 Alkaline Phosphatase 122 H Lactate Dehydrogenase 206 Total Protein 6.9 Albumin 3.7 Globulin 3.2 Albumin/Globulin Ratio 1.2 Ur Random Creatinine 55.3 U Random Total Protein 42.2 H Protein/Creatinin Ratio 0.8 H Treponema pallidum Ab Negative 01/30/24 01/31/24 02/01/24 08:12 06:16 05:51 WBC 8.23 12.75 H RBC 5.07 4.39 Hgb 14.9 12.7 11.6 L Hct 44.0 38.1 35.2 L MCV 86.8 86.8 MCH 29.4 28.9 MCHC 33.9 33.3 RDW Std Deviation 49.7 H 49.6 H RDW Coeff of [place] 15.8 H 15.8 H Plt Count 305 270 MPV 10.1 10.3 Immature Gran % (Auto) 0.2 Neut % (Auto) 55.9 Lymph % (Auto) 29.4 [place] % (Auto) 12.9 Eos % (Auto) 1.1 Baso % (Auto) 0.5 Neut # (Auto) 4.60 Lymph # (Auto) 2.42 [place] # (Auto) 1.06 H Eos # (Auto) 0.09 Baso # (Auto) 0.04 Immature Gran # (Auto) 0.02 Sodium 136 Potassium 4.4 Chloride 106 Carbon Dioxide 21 Anion Gap 9 BUN 9 Creatinine 0.52 L Est Cr Clr Drug Dosing 189.2 eGFR 128.90 BUN/Creatinine Ratio 17.3 Glucose 92 POC Glucose Uric Acid Calcium 10.1 Total Bilirubin 0.3 Direct Bilirubin AST 25 ALT 30 Alkaline Phosphatase 130 H Lactate Dehydrogenase Total Protein 7.2 Albumin 3.8 Globulin 3.4 Albumin/Globulin Ratio 1.1 Ur Random Creatinine U Random Total Protein Protein/Creatinin Ratio Treponema pallidum Ab
[2024-02-01 09:52] VITALS: PULSE 79; TEMP 98.1; O2SAT 98
[2024-02-01 14:49] VITALS: BP 120/71
--- NOTE | 2024-02-02 15:06 | Anesthesia Procedure Note ---
Date of Service February 02, 2024 Anesthesia Post Epidural Note Vital Signs Vital Signs: Temp Pulse Resp BP Pulse Ox O2 Del Method 36.7 C 79 16 120/71 98 Room Air 02/01/24 11:34 02/01/24 11:34 02/01/24 11:34 02/01/24 14:49 02/01/24 11:34 02/01/24 09:00 Pain Intensity Perineal: Pain Intensity: 3 Notes Mental Status: alert / awake / arousable and participated in evaluation Nausea / Vomiting: adequately controlled Pain: adequately controlled Airway Patency, RR, SpO2: stable & adequate BP & HR: stable & adequate Hydration State: stable & adequate Neuraxial Anesthesia: was administered and sensory block is resolving Anesthetic Complications: no major complications apparent Epidural: Removed without complications and With tip intact
== END 2024-02-01 15:15 | disposition home or self-care (01) | DRG 807 ==
LOC: 4S1 11:32 → 4E2 01-31 23:04

== ENCOUNTER 2024-02-07 17:56 | Inpatient (IN) ==
[2024-02-07] MEDS: LABETALOL HCL IV 5 MG/ML 20ML IV STA ×2 (19:07→20:52)
[2024-02-07 19:19] LABS: Basophils # (auto) 0.04 K/uL (0.00-0.20); Basophils % (auto) 0.6 %; Eosinophils # (auto) 0.23 K/uL (0.00-0.50); Eosinophils % (auto) 3.3 %; Hematocrit (blood only) 38.4 % (37.0-47.0); Hemoglobin 12.8 g/dl (12.0-16.0); Immature Granulocytes # (auto) 0.05 K/uL (0.01-0.20); Immature Granulocytes % (auto) 0.7 %; Lymphocytes # (auto) 1.82 K/uL (1.20-3.40); Lymphocytes % (auto) 25.8 %; Mean Corpuscular Hgb Conc 33.3 g/dL (32.0-36.0); Mean Corpuscular Volume 86.9 fL (80.0-100.0); Mean Platelet Volume 9.6 fL (9.4-12.4); Monocytes # (auto) 0.62 K/uL (0.11-0.59); Monocytes % (auto) 8.8 %; Neutrophils % (auto) 60.8 %; Platelet Count 411 K/uL (130-400); RDW Coefficient of Variation 15.3 % (11.5-14.5); RDW Standard Deviation 48.8 fL (36.4-46.3); Red Blood Count 4.42 M/uL (4.20-5.40); White Blood Count 7.06 K/ul (4.8-10.8)
[2024-02-07 19:26] LABS: Appearance Urine Cloudy (Clear); Bacteria Urine Automated 4+ (None Seen); Bilirubin Urine Negative (Negative); Blood Urine 2+ (Negative); Cast Urine Automated 0-2 /lpf (0-2); Color Urine Yellow; Epithelial Cell Urine Auto 0-2 /hpf (0-2); Glucose Urine UA Negative (Negative); Ketones Urine Negative (Negative); Leukocyte Esterase Urine 3+ (Negative); Nitrite Urine Negative (Negative); Protein Urine Trace (Negative); RBC Urine Automated 0-2 /hpf (0-2); Specific Gravity Urine 1.012 (1.000-1.030); Urobilinogen Urine Negative (Negative); WBC Urine Automated >50 /hpf (0-5); pH Urine 5.5 (4.5-7.5)
[2024-02-07 19:30] LABS: Albumin Level 3.5 gm/dl (3.4-5.0); BUN Creatinine Ratio 19.4 (10-20); Bilirubin,Total 0.2 mg/dl (0.2-1.0); Calcium 9.4 mg/dl (8.6-10.3); Creatinine Clr Calc Pharmacy 132.1 ml/min; Globulin 3.5 gm/dl (2.5-4.0); Magnesium 1.7 mg/dl (1.7-2.4); Potassium 3.9 mmol/L (3.5-5.1)
[2024-02-07 19:35] LABS: Troponin I High Sensitivity 5.6 pg/ml (0-14)
[2024-02-07 19:42] LABS: INR 0.9 (0.9-1.1); Partial Thromboplastin Time 27 Seconds (21-31); Prothrombin Time 10.3 Seconds (9.0-12.0)
[2024-02-07] MEDS ORDERED: LIDOCAINE 1% LOCAL 20 ML VIAL INFIL PRN (20:40)
[2024-02-07] MEDS: CALCIUM CARBONATE 500 MG CHEWABLE TAB PO PRN (20:54)
--- NOTE | 2024-02-07 21:32 | History & Physical Report ---
Date of Service February 07, 2024 Assessment & Plan (1) Bilateral lower extremity edema: (2) hypertension: Plan: 28-year-old -0-0-1 who is status post on January 29, status post preeclampsia with severe features and IV magnesium seizure prophylaxis during admission and delivery, Presenting today with lower extremity edema, upper abdominal pain, elevated blood pressures in severe range, requiring IV labetalol, Blood pressure is stable now, she is asymptomatic, Labs within normal limits, Plan to admit her for blood pressure control and IV magnesium for seizure prophylaxis for 24 hours and repeat labs in the morning, All questions were answered. (3) Preeclampsia: History of Present Illness Primary Care Provider: NO PCP patient is a 28-year-old [id number] who is status post spontaneous vaginal delivery on January 29, when she was diagnosed with with severe features and was placed on antihypertensive as well as IV magnesium for seizure prophylaxis. She was discharged on January 31.She has not used antihypertensive medications since discharge. She started to have lower extremity swelling about 3 days ago which got worse this evening and she came to the ER. She also complains of lower back pain where the epidural was given as well as upper abdominal discomfort under the ribs. Lower abdomen feels normal with some cramping and light bleeding. She denies headaches, change in her vision, nausea vomiting, extremity weakness, numbness tingling, chest pain shortness of breath, fever chills. She has been both breast and bottlefeeding her baby and who has been doing well. When she came to the ER her blood pressures were elevated in severe range, she was given 20 mg of IV labetalol once by ER physician and her blood pressure was still elevated at 171/105. I was called to admit her for hypertension with severe features. Patient understands all and agrees with the plan. Allergies Allergy/AdvReac Type Severity Reaction Status Date / Time No Known Allergies Allergy Verified 01/29/24 11:50 Home Medications Medication Instructions Recorded Confirmed Type vit no.95-ferrous 1 tab PO DAILY 07/08/23 02/07/24 History fumarate 28 mg-folic acid 800 mcg tablet () ibuprofen 600 mg tablet 600 mg PO Q6H PRN fever or pain 02/01/24 02/07/24 Rx #30 tabs Patient History Medical History Preeclampsia Gestational diabetes mellitus diet controlled Surgical History No history of previous surgery Social History Smoking Status: Never smoker Second Hand Exposure: No; Hx Alcohol Use: No Hx Substance Use: No Preferred Language: Urdu [employer] Required: No Beliefs That Will Affect Care: None marital status: marital status details: Art Germain Current Living Situation: Family Current Living Situation Comment: lives with current occupational status: employed current occupation: [email or web address] Feels Safe at Home: Yes Assistive Devices: None OB History full-term on Review of Systems as per Subjective / HPI Physical Exam Constitutional: WD/WN, vitals as above well developed and well nourished Gastrointestinal (Abdomen): normal bowel sounds, soft, nontender, no hepato splenomegaly ( mild epigastric, RUQ, LUQ tenderness, no rebound) uterus is firm, nontender Musculoskeletal: Extremities: + abnormal strength bilateral lower extremity swelling, about 2+ pitting edema bilaterally on pretibial area and dorsum of feet, Homans' sign negative bilaterally, Clonus negative, DTR normal bilaterally, Genitourinary: lochia rubra minimal Results & Data Vital Signs (Past 12 Hours) Vital Signs Temp Pulse Pulse Resp BP BP Pulse Ox 02/07/24 21:08 65 159/90 H 02/07/24 21:00 02/07/24 20:54 65 20 99 02/07/24 20:53 159/90 H 02/07/24 20:53 159/90 H 02/07/24 20:53 159/90 H 02/07/24 20:39 67 23 98 02/07/24 20:33 69 171/105 H 02/07/24 20:26 171/105 H 02/07/24 20:26 171/105 H 02/07/24 20:24 62 23 99 02/07/24 20:12 61 19 98 02/07/24 20:00 71 18 99 02/07/24 19:48 64 16 98 02/07/24 19:38 68 02/07/24 19:34 71 148/94 H 02/07/24 19:07 81 182/103 H 02/07/24 19:00 86 16 163/85 H 98 02/07/24 18:16 36.8 C 57 L 18 182/91 H 97 O2 Del Method 02/07/24 21:08 02/07/24 21:00 Room Air 02/07/24 20:54 02/07/24 20:53 02/07/24 20:53 02/07/24 20:53 02/07/24 20:39 02/07/24 20:33 02/07/24 20:26 02/07/24 20:26 02/07/24 20:24 02/07/24 20:12 02/07/24 20:00 02/07/24 19:48 02/07/24 19:38 02/07/24 19:34 02/07/24 19:07 02/07/24 19:00 02/07/24 18:16 Room Air Laboratory Results Lab Results 02/07/24 02/07/24 Range/Units 18:57 19:09 WBC 7.06 (4.8-10.8) K/ul RBC 4.42 (4.20-5.40) M/uL Hgb 12.8 (12.0-16.0) g/dl Hct 38.4 (37.0-47.0) % MCV 86.9 (80.0-100.0) fL MCH 29.0 (25.0-34.0) pg MCHC 33.3 (32.0-36.0) g/dL RDW Std Deviation 48.8 H (36.4-46.3) fL RDW Coeff of [place] 15.3 H (11.5-14.5) % Plt Count 411 H (130-400) K/uL MPV 9.6 (9.4-12.4) fL Immature Gran % (Auto) 0.7 % Neut % (Auto) 60.8 % Lymph % (Auto) 25.8 % [place] % (Auto) 8.8 % Eos % (Auto) 3.3 % Baso % (Auto) 0.6 % Neut # (Auto) 4.30 (1.40-6.50) K/uL Lymph # (Auto) 1.82 (1.20-3.40) K/uL [place] # (Auto) 0.62 H (0.11-0.59) K/uL Eos # (Auto) 0.23 (0.00-0.50) K/uL Baso # (Auto) 0.04 (0.00-0.20) K/uL Immature Gran # (Auto) 0.05 (0.01-0.20) K/uL PT 10.3 (9.0-12.0) Seconds INR 0.9 (0.9-1.1) APTT 27 (21-31) Seconds PTT Ratio 1.0 Sodium 139 (136-145) mmol/L Potassium 3.9 (3.5-5.1) mmol/L Chloride 108 H (98-107) mmol/L Carbon Dioxide 24 (21-32) mmol/L Anion Gap 7 (3-11) BUN 14 (6-23) mg/dl Creatinine 0.72 (0.6-1.2) mg/dl Est Cr Clr Drug Dosing 132.1 ml/min eGFR 116.00 BUN/Creatinine Ratio 19.4 (10-20) Glucose 85 (70-99(Fasting)) mg/dl Calcium 9.4 (8.6-10.3) mg/dl Magnesium 1.7 (1.7-2.4) mg/dl Total Bilirubin 0.2 (0.2-1.0) mg/dl AST 18 (13-39) U/L ALT 25 (7-52) U/L Alkaline Phosphatase 92 (34-104) U/L Troponin I High Sens 5.6 (0-14) pg/ml Total Protein 7.0 (6.0-8.3) gm/dl Albumin 3.5 (3.4-5.0) gm/dl Globulin 3.5 (2.5-4.0) gm/dl Albumin/Globulin Ratio 1.0 (0.9-2) Urine Color Yellow Urine Appearance Cloudy A (Clear) Urine pH 5.5 (4.5-7.5) Ur Specific [place] 1.012 (1.000-1.030) Urine Protein Trace H (Negative) Urine Glucose (UA) Negative (Negative) Urine Ketones Negative (Negative) Urine Blood 2+ H (Negative) Urine Nitrite Negative (Negative) Urine Bilirubin Negative (Negative) Urine Urobilinogen Negative (Negative) Ur Leukocyte Esterase 3+ H (Negative) Urine WBC (Auto) >50 H (0-5) /hpf Urine RBC (Auto) 0-2 (0-2) /hpf U Hyaline Cast (Auto) 0-2 (0-2) /lpf U Epithel Cells (Auto) 0-2 (0-2) /hpf Urine Bacteria (Auto) 4+ H (None Seen) (3) Preeclampsia Trimester: unspecified trimester Qualified Code(s): O14.90 - Unspecified pre- eclampsia, unspecified trimester
[2024-02-07] MEDS: LABETALOL HCL 200 MG TAB PO SCH (21:37)
[2024-02-07] MEDS: MAGNESIUM SULFATE / WTR 40 GM/1,000 ML BAG IV SCH (21:39)
[2024-02-07] MEDS: MAG SULFATE 4GM BOLUS FROM BAG IV ONE (21:53)
[2024-02-07] MEDS ORDERED: LIDOCAINE 2% JELLY 5 ML TUBE EXT ONE (22:23)
[2024-02-07] MEDS: BENZOCAINE 20% SPRY 85 APPLN/85 GM CAN EXT ONE (22:37)
--- NOTE | 2024-02-07 23:52 | Emergency Department Note ---
History of Present Illness General Chief complaint: Hypertension Stated complaint: BOTH FEET SWOLLEN PAINFULL, BACK PAIN Time Seen by Provider: 02/07/24 18:58 History of Present Illness Provider complaint: High blood pressure leg edema Onset (ago): day(s) 3 28-year-old G1, P1 who had a spontaneous vaginal delivery 1 week ago presents emergency department for bilateral lower extremity edema and hypertension. Patient reports her blood pressure has been running high she does notice swelling in her legs. She reports no chest pain Diffley breathing headache or abdominal pain. No fever. Home Medications Medication Instructions Recorded Confirmed Type vit no.95-ferrous 1 tab PO DAILY 07/08/23 02/07/24 History fumarate 28 mg-folic acid 800 mcg tablet () ibuprofen 600 mg tablet 600 mg PO Q6H PRN fever or pain 02/01/24 02/07/24 Rx #30 tabs Allergies Allergy/AdvReac Type Severity Reaction Status Date / Time No Known Allergies Allergy Verified 01/29/24 11:50 Past Med/Surg History Problem List (Updated 02/07/24 @ 23:52 by Mikhail Whitfeild MD) Mild pre-eclampsia, (Acute) hypertension Bilateral lower extremity edema Encounter for pre-operative examination No known health problems GDM (gestational diabetes mellitus), class A1 No significant past surgical history No chronic diseases present Medical History Preeclampsia Gestational diabetes mellitus diet controlled Surgical History No history of previous surgery Social History Smoking Status: Never smoker Second Hand Exposure: No; Hx Alcohol Use: No Hx Substance Use: No Preferred Language: Gabonese Communication Ability: Effective Yield Loss Inspector Required: No Beliefs That Will Affect Care: None marital status: marital status details: Art Germain Current Living Situation: Spouse and Family Current Living Situation Comment: lives with current occupational status: employed current occupation: [employer] Other Information That Helps Us Care for You: No Feels Safe at Home: Yes Safety Concerns: Feels Safe At This Time Assistive Devices: None Physical Exam Vital Signs Vital Signs - 24 hr 02/07/24 18:16 02/07/24 19:00 02/07/24 19:07 Temperature 36.8 C Temperature Source Temporal Artery Scan Pulse Rate 57 L 81 Pulse Rate [Finger] 86 Pulse Rate from SpO2 Sensor Respiratory Rate 18 16 Respiratory Effort / Characteristics Non-Labored Spontaneous Non-Labored Respiratory Depth Normal Normal Respiratory Pattern Regular Blood Pressure 182/91 H 182/103 H Blood Pressure [Right Arm] 163/85 H Blood Pressure Mean 121 Blood Pressure Mean [Right Arm] 111 Pulse Oximetry 97 98 Oxygen Delivery Method Room Air Sepsis Recent Fever Within 48 Hours No Sepsis New/Unexplained Change in Mental Status No Sepsis Action Taken by Nursing No Action Required 02/07/24 19:34 02/07/24 19:38 02/07/24 19:48 Temperature Temperature Source Pulse Rate 71 68 64 Pulse Rate [Finger] Pulse Rate from SpO2 Sensor 64 Respiratory Rate 16 Respiratory Effort / Characteristics Respiratory Depth Respiratory Pattern Blood Pressure 148/94 H Blood Pressure [Right Arm] Blood Pressure Mean 112 Blood Pressure Mean [Right Arm] Pulse Oximetry 98 Oxygen Delivery Method Sepsis Recent Fever Within 48 Hours Sepsis New/Unexplained Change in Mental Status Sepsis Action Taken by Nursing 02/07/24 20:00 02/07/24 20:12 02/07/24 20:24 Temperature Temperature Source Pulse Rate 71 61 62 Pulse Rate [Finger] Pulse Rate from SpO2 Sensor 68 65 62 Respiratory Rate 18 19 23 Respiratory Effort / Characteristics Respiratory Depth Respiratory Pattern Blood Pressure Blood Pressure [Right Arm] Blood Pressure Mean Blood Pressure Mean [Right Arm] Pulse Oximetry 99 98 99 Oxygen Delivery Method Sepsis Recent Fever Within 48 Hours Sepsis New/Unexplained Change in Mental Status Sepsis Action Taken by Nursing 02/07/24 20:26 02/07/24 20:26 02/07/24 20:33 Temperature Temperature Source Pulse Rate 69 Pulse Rate [Finger] Pulse Rate from SpO2 Sensor Respiratory Rate Respiratory Effort / Characteristics Respiratory Depth Respiratory Pattern Blood Pressure 171/105 H 171/105 H 171/105 H Blood Pressure [Right Arm] Blood Pressure Mean 137 137 Blood Pressure Mean [Right Arm] Pulse Oximetry Oxygen Delivery Method Sepsis Recent Fever Within 48 Hours Sepsis New/Unexplained Change in Mental Status Sepsis Action Taken by Nursing 02/07/24 20:39 Temperature Temperature Source Pulse Rate 67 Pulse Rate [Finger] Pulse Rate from SpO2 Sensor 69 Respiratory Rate 23 Respiratory Effort / Characteristics Respiratory Depth Respiratory Pattern Blood Pressure Blood Pressure [Right Arm] Blood Pressure Mean Blood Pressure Mean [Right Arm] Pulse Oximetry 98 Oxygen Delivery Method Sepsis Recent Fever Within 48 Hours Sepsis New/Unexplained Change in Mental Status Sepsis Action Taken by Nursing Physical Exam GENERAL: oriented to person, place, and time. appears well-developed and well- nourished. HENT: Exam performed. - Head: Normocephalic and atraumatic. EYES: Conjunctivae and EOM are normal. Right eye exhibits no discharge. Left eye exhibits no discharge. No scleral icterus. NECK: Normal range of motion. Neck supple. No JVD present. CV: Normal rate, regular rhythm, normal heart sounds and intact distal pulses. 1+ pitting edema of the bilateral lower extremity. Palpable radial pulses bue. PULM/CHEST: Effort normal and breath sounds normal. No respiratory distress. No stridor. no wheezes. no rales. ABD: The abdomen is soft. There is no tenderness. NEURO: Motor and sensation grossly intact. SKIN: Skin is warm and dry. He is not diaphoretic. PSYCH: normal mood and affect. Behavior is normal. Judgment and thought content normal. Course Course 1857: The patient was evaluated in room B4. A complete history and physical exam was performed Cardiac monitoring: An order was placed for continuous cardiac monitoring. The monitor shows a rate of 70 with sinus rhythm interpreted by me Patient is hypertensive. High suspicion for preeclampsia. Labetalol 20 mg ordered for the patient. 1929: Blood pressure improved with IV labetalol. 2029: Blood pressure transiently improved however now is elevated again with systolic blood pressure greater than 170. Labs are unremarkable protein is present in the urine. Discussed case with Dr. Adames and she shares the concern for preeclampsia also. She states that an additional 40 mg labetalol can be given which will be ordered for the patient. Patient will be admitted to her service. Administered Medications Calcium Carbonate (Calcium Carbonate 500 Mg Chewable Tab) 500 mg PO Q6H PRN PRN Reason: Indigestion Stop: 03/08/24 20:39 Last Admin: 02/07/24 20:54 Dose: 500 mg Documented By: TOMEKA Magnesium Sulfate (Magnesium Sulfate / Wtr) 40 gm in 1,000 mls @ 50 mls/hr IV .Q20H STANLEY Stop: 03/08/24 20:44 Last Admin: 02/07/24 21:39 Dose: 50 mls/hr Documented By: TOMEKA Co-signed By: BECKY Labetalol HCl (Labetalol Hcl 200 Mg Tab) 200 mg PO BID STANLEY Stop: 03/08/24 20:59 Last Admin: 02/07/24 21:37 Dose: 200 mg Documented By: TOMEKA Discontinued Medications Benzocaine (Benzocaine 20% [place] 85 Appln/85 Gm Can) Confirm Administered Dose 85 appln EXT .STK-MED ONE Stop: 02/07/24 22:35 Last Admin: 02/07/24 22:37 Dose: 85 appln Documented By: JULIEN Labetalol HCl (Labetalol Hcl Iv 5 Mg/Ml 20ml) 20 mg IV NOW STA Stop: 02/07/24 19:04 Last Admin: 02/07/24 19:07 Dose: 20 mg Documented By: TOMEKA Labetalol HCl (Labetalol Hcl Iv 5 Mg/Ml 20ml) 40 mg IV NOW STA Stop: 02/07/24 20:31 Last Admin: 02/07/24 21:08 Dose: Not Given Documented By: TOMEKA Magnesium Sulfate (Mag Sulfate 4gm Bolus From Bag) 4 gm IV ONE ONE Stop: 02/07/24 20:39 Last Admin: 02/07/24 21:53 Dose: 4 gm Documented By: TOMEKA Co-signed By: BECKY Critical Care Time Critical Care Time: Yes Total Critical Care Time: 51 I have personally spent greater than 51 minutes of critical care time in the direct management of this patient. This includes bedside care, interpretation of diagnostic studies, and testing, discussion with consultants, patient, and family members, and other required patient management activities. This 51 minutes is in excess of all separately billable procedures. Medical Decision Making Laboratory Data Attestation: I reviewed the patient's lab results. 02/07/24 18:57 02/07/24 18:57 Lab Results 02/07/24 02/07/24 Range/Units 18:57 19:09 WBC 7.06 (4.8-10.8) K/ul RBC 4.42 (4.20-5.40) M/uL Hgb 12.8 (12.0-16.0) g/dl Hct 38.4 (37.0-47.0) % MCV 86.9 (80.0-100.0) fL MCH 29.0 (25.0-34.0) pg MCHC 33.3 (32.0-36.0) g/dL RDW Std Deviation 48.8 H (36.4-46.3) fL RDW Coeff of [place] 15.3 H (11.5-14.5) % Plt Count 411 H (130-400) K/uL MPV 9.6 (9.4-12.4) fL Immature Gran % (Auto) 0.7 % Neut % (Auto) 60.8 % Lymph % (Auto) 25.8 % [place] % (Auto) 8.8 % Eos % (Auto) 3.3 % Baso % (Auto) 0.6 % Neut # (Auto) 4.30 (1.40-6.50) K/uL Lymph # (Auto) 1.82 (1.20-3.40) K/uL [place] # (Auto) 0.62 H (0.11-0.59) K/uL Eos # (Auto) 0.23 (0.00-0.50) K/uL Baso # (Auto) 0.04 (0.00-0.20) K/uL Immature Gran # (Auto) 0.05 (0.01-0.20) K/uL PT 10.3 (9.0-12.0) Seconds INR 0.9 (0.9-1.1) APTT 27 (21-31) Seconds PTT Ratio 1.0 Sodium 139 (136-145) mmol/L Potassium 3.9 (3.5-5.1) mmol/L Chloride 108 H (98-107) mmol/L Carbon Dioxide 24 (21-32) mmol/L Anion Gap 7 (3-11) BUN 14 (6-23) mg/dl Creatinine 0.72 (0.6-1.2) mg/dl Est Cr Clr Drug Dosing 132.1 ml/min eGFR 116.00 BUN/Creatinine Ratio 19.4 (10-20) Glucose 85 (70-99(Fasting)) mg/dl Calcium 9.4 (8.6-10.3) mg/dl Magnesium 1.7 (1.7-2.4) mg/dl Total Bilirubin 0.2 (0.2-1.0) mg/dl AST 18 (13-39) U/L ALT 25 (7-52) U/L Alkaline Phosphatase 92 (34-104) U/L Troponin I High Sens 5.6 (0-14) pg/ml Total Protein 7.0 (6.0-8.3) gm/dl Albumin 3.5 (3.4-5.0) gm/dl Globulin 3.5 (2.5-4.0) gm/dl Albumin/Globulin Ratio 1.0 (0.9-2) Urine Color Yellow Urine Appearance Cloudy A (Clear) Urine pH 5.5 (4.5-7.5) Ur Specific [place] 1.012 (1.000-1.030) Urine Protein Trace H (Negative) Urine Glucose (UA) Negative (Negative) Urine Ketones Negative (Negative) Urine Blood 2+ H (Negative) Urine Nitrite Negative (Negative) Urine Bilirubin Negative (Negative) Urine Urobilinogen Negative (Negative) Ur Leukocyte Esterase 3+ H (Negative) Urine WBC (Auto) >50 H (0-5) /hpf Urine RBC (Auto) 0-2 (0-2) /hpf U Hyaline Cast (Auto) 0-2 (0-2) /lpf U Epithel Cells (Auto) 0-2 (0-2) /hpf Urine Bacteria (Auto) 4+ H (None Seen) [facility] Narrative 1858: The patient was evaluated in room B4. A complete history and physical exam was performed Cardiac monitoring: An order was placed for continuous cardiac monitoring. The monitor shows a rate of 70 with sinus rhythm interpreted by me Patient is hypertensive. High suspicion for preeclampsia. Labetalol 20 mg ordered for the patient. 1930: Blood pressure improved with IV labetalol. 2029: Blood pressure transiently improved however now is elevated again with systolic blood pressure greater than 170. Labs are unremarkable protein is present in the urine. Discussed case with Dr. Adames and she shares the concern for preeclampsia also. She states that an additional 40 mg labetalol can be given which will be ordered for the patient. Patient will be admitted to her service. Impression & Plan Mild pre-eclampsia, Discharge Plan Visit Data Chief Complaint: Hypertension Stated Complaint: BOTH FEET SWOLLEN PAINFULL, BACK PAIN ED Provider: Mikhail Whitfield Discharge Problem: Mild pre-eclampsia, Patient Disposition: Admitted As Inpatient Discharge Instructions Interventions: ED Discharge Assessment Last Done: 02/07/24 22:03
[2024-02-08] MEDS: LABETALOL HCL 200 MG TAB PO ONE (01:32)
[2024-02-08] MEDS: ACETAMINOPHEN 325 MG TAB PO PRN (01:32)
[2024-02-08 06:21] LABS: Albumin Level 3.5 gm/dl (3.4-5.0); BUN Creatinine Ratio 18.2 (10-20); Bilirubin,Total 0.2 mg/dl (0.2-1.0); Calcium 8.7 mg/dl (8.6-10.3); Creatinine Clr Calc Pharmacy 144.1 ml/min; Globulin 3.6 gm/dl (2.5-4.0); Magnesium 4.8 mg/dl (1.7-2.4); Potassium 3.7 mmol/L (3.5-5.1); Total Protein 7.1 gm/dl (6.0-8.3)
[2024-02-08 06:29] LABS: Basophils # (auto) 0.05 K/uL (0.00-0.20); Basophils % (auto) 0.7 %; Eosinophils # (auto) 0.22 K/uL (0.00-0.50); Eosinophils % (auto) 3.1 %; Hematocrit (blood only) 38.5 % (37.0-47.0); Hemoglobin 12.8 g/dl (12.0-16.0); Immature Granulocytes # (auto) 0.04 K/uL (0.01-0.20); Immature Granulocytes % (auto) 0.6 %; Lymphocytes # (auto) 1.95 K/uL (1.20-3.40); Lymphocytes % (auto) 27.4 %; Mean Corpuscular Hemoglobin 28.6 pg (25.0-34.0); Mean Corpuscular Hgb Conc 33.2 g/dL (32.0-36.0); Mean Corpuscular Volume 85.9 fL (80.0-100.0); Mean Platelet Volume 9.3 fL (9.4-12.4); Monocytes # (auto) 0.72 K/uL (0.11-0.59); Monocytes % (auto) 10.1 %; Neutrophils # (auto) 4.13 K/uL (1.40-6.50); Neutrophils % (auto) 58.1 %; Platelet Count 427 K/uL (130-400); RDW Coefficient of Variation 15.2 % (11.5-14.5); Red Blood Count 4.48 M/uL (4.20-5.40); White Blood Count 7.11 K/ul (4.8-10.8)
[2024-02-08] MEDS: PRENATAL VITAMIN 1 TAB PO SCH (08:45)
[2024-02-08] MEDS: LABETALOL HCL 200 MG TAB PO SCH (08:45)
[2024-02-08] MEDS: NIFEdipine EXTENDED REL 30 MG TABCR PO SCH (08:45)
[2024-02-08] MEDS: LIDOCAINE 2% JELLY 5 ML TUBE EXT ONE (09:55)
[2024-02-08] MEDS: oxyCODONE HCL IR 5 MG TAB (IMMEDIATE RELEASE) PO PRN (10:09)
[2024-02-08] MEDS: LABETALOL HCL IV 5 MG/ML 20ML IV STA (11:44)
--- NOTE | 2024-02-08 12:11 | Obstetrical Progress Note ---
Date of Service February 08, 2024 Subjective Ambulation: limited ambulation Voiding: pimentel catheter in place Passing Gas:: Yes Diet Tolerance:: clear liquids Lochia:: Small Feeding Type:: breast feeding Current Pain Level(1-10): 0 Pimentel with good output Physical Exam Constitutional WD/WN, vitals as above Gastrointestinal (Abdomen) Inspection/Auscultation: abdomen normal to inspection Musculoskeletal lower extremity edema noted Skin no rashes, warm and dry Neurologic patellar DTR's 2+ bilat, sensation intact Psychiatric A+Ox3, euthymic affect Results & Data Vital Signs (Past 12 Hours) Vital Signs Temp Pulse Resp BP Pulse Ox O2 Del Method 02/08/24 12:07 16 02/08/24 12:07 77 96 02/08/24 12:02 95 02/08/24 12:02 78 02/08/24 12:02 80 153/84 H 02/08/24 11:57 77 96 02/08/24 11:52 82 95 02/08/24 11:47 94 02/08/24 11:47 81 02/08/24 11:47 83 149/78 H 02/08/24 11:44 83 178/90 H 02/08/24 11:42 81 95 02/08/24 11:37 87 95 02/08/24 11:32 83 96 02/08/24 11:27 85 98 02/08/24 11:22 82 96 02/08/24 11:17 83 96 02/08/24 11:12 82 95 02/08/24 11:07 85 96 02/08/24 11:06 93 H 178/90 H 02/08/24 11:02 85 93 02/08/24 11:00 36.7 C 20 02/08/24 11:00 20 02/08/24 10:57 83 93 02/08/24 10:52 79 95 02/08/24 10:47 77 95 02/08/24 10:42 75 96 02/08/24 10:37 78 95 02/08/24 10:32 80 95 02/08/24 10:27 81 95 02/08/24 10:22 84 97 02/08/24 10:17 81 97 02/08/24 10:12 81 95 02/08/24 10:07 80 95 02/08/24 10:02 92 H 100 02/08/24 10:00 18 02/08/24 09:57 86 100 02/08/24 09:52 81 97 02/08/24 09:47 83 97 02/08/24 09:42 82 98 02/08/24 09:37 81 98 02/08/24 09:32 80 99 02/08/24 09:27 78 99 02/08/24 09:22 84 98 02/08/24 09:21 85 156/83 H 02/08/24 09:17 83 99 02/08/24 09:12 90 99 02/08/24 09:07 79 100 02/08/24 09:06 78 164/91 H 02/08/24 09:02 90 99 02/08/24 09:00 18 02/08/24 08:57 79 99 02/08/24 08:52 86 99 02/08/24 08:47 83 100 02/08/24 08:44 85 171/94 H 02/08/24 08:42 81 99 02/08/24 08:37 88 98 02/08/24 08:32 85 98 02/08/24 08:27 85 99 02/08/24 08:22 78 97 02/08/24 08:17 82 99 02/08/24 08:12 85 98 02/08/24 08:07 83 97 02/08/24 08:02 89 98 02/08/24 07:57 83 97 02/08/24 07:52 82 97 02/08/24 07:49 80 151/80 H 02/08/24 07:47 80 97 02/08/24 07:42 81 97 02/08/24 07:37 84 99 02/08/24 07:32 81 97 02/08/24 07:27 79 98 02/08/24 07:22 80 98 02/08/24 07:19 80 145/80 H 02/08/24 07:17 96 H 98 02/08/24 07:12 88 97 02/08/24 07:10 36.7 C 16 Room Air 02/08/24 07:07 86 98 02/08/24 07:02 84 98 02/08/24 06:57 96 H 98 02/08/24 06:52 91 H 97 02/08/24 06:49 93 H 130/70 02/08/24 06:47 80 97 02/08/24 06:42 80 97 02/08/24 06:37 80 96 02/08/24 06:32 77 97 02/08/24 06:27 78 97 02/08/24 06:22 76 97 02/08/24 06:19 82 149/77 H 02/08/24 06:17 81 97 02/08/24 06:15 18 02/08/24 06:12 81 96 02/08/24 06:07 77 97 02/08/24 06:02 73 97 02/08/24 05:57 77 97 02/08/24 05:52 72 97 02/08/24 05:49 70 136/70 02/08/24 05:47 73 97 02/08/24 05:42 82 98 02/08/24 05:37 69 98 02/08/24 05:32 72 97 02/08/24 05:27 73 98 02/08/24 05:22 80 99 02/08/24 05:17 81 96 02/08/24 05:15 18 02/08/24 05:12 76 97 02/08/24 05:07 77 96 02/08/24 05:02 77 96 02/08/24 04:57 76 96 02/08/24 04:52 81 98 02/08/24 04:49 82 146/78 H 02/08/24 04:47 84 97 02/08/24 04:42 78 96 02/08/24 04:37 79 97 02/08/24 04:32 78 97 02/08/24 04:27 78 97 02/08/24 04:22 91 H 96 02/08/24 04:19 88 140/82 02/08/24 04:17 84 96 02/08/24 04:15 18 02/08/24 04:12 94 H 95 02/08/24 04:07 88 94 02/08/24 04:02 90 93 02/08/24 03:57 82 95 02/08/24 03:52 82 95 02/08/24 03:49 83 137/72 02/08/24 03:47 83 95 02/08/24 03:42 83 95 02/08/24 03:37 82 95 02/08/24 03:32 83 94 02/08/24 03:27 80 95 02/08/24 03:22 81 95 02/08/24 03:18 81 94 02/08/24 03:17 82 143/73 H 94 02/08/24 03:15 18 02/08/24 03:15 36.9 C 18 02/08/24 03:12 86 97 02/08/24 03:07 81 95 02/08/24 03:02 91 H 148/79 H 99 02/08/24 02:57 84 96 02/08/24 02:52 83 97 02/08/24 02:47 98 02/08/24 02:47 82 02/08/24 02:47 83 156/81 H 02/08/24 02:42 80 97 02/08/24 02:37 80 98 02/08/24 02:32 79 156/83 H 99 02/08/24 02:27 76 99 02/08/24 02:22 76 99 02/08/24 02:17 77 160/87 H 99 02/08/24 02:13 18 02/08/24 02:12 74 100 02/08/24 02:07 77 100 02/08/24 02:02 71 175/91 H 100 02/08/24 01:57 87 99 02/08/24 01:52 64 100 02/08/24 01:47 67 155/87 H 100 02/08/24 01:42 61 100 02/08/24 01:37 72 100 02/08/24 01:32 67 169/82 H 100 02/08/24 01:27 63 100 02/08/24 01:22 69 100 02/08/24 01:17 70 175/87 H 99 02/08/24 01:13 18 02/08/24 01:12 66 99 02/08/24 01:07 67 99 02/08/24 01:02 68 169/89 H 100 02/08/24 00:57 71 99 02/08/24 00:52 77 98 02/08/24 00:47 76 151/81 H 98 02/08/24 00:42 76 100 02/08/24 00:37 80 99 02/08/24 00:32 73 153/76 H 99 02/08/24 00:27 69 98 02/08/24 00:22 70 98 02/08/24 00:17 75 146/75 H 99 02/08/24 00:13 16 11/21/24 00:12 70 98 Laboratory Results Laboratory Results - last 48 hr 02/07/24 02/07/24 02/08/24 18:57 19:09 05:43 WBC 7.06 7.11 RBC 4.42 4.48 Hgb 12.8 12.8 Hct 38.4 38.5 MCV 86.9 85.9 MCH 29.0 28.6 MCHC 33.3 33.2 RDW Std Deviation 48.8 H 48.0 H RDW Coeff of [place] 15.3 H 15.2 H Plt Count 411 H 427 H MPV 9.6 9.3 L Immature Gran % (Auto) 0.7 0.6 Neut % (Auto) 60.8 58.1 Lymph % (Auto) 25.8 27.4 [place] % (Auto) 8.8 10.1 Eos % (Auto) 3.3 3.1 Baso % (Auto) 0.6 0.7 Neut # (Auto) 4.30 4.13 Lymph # (Auto) 1.82 1.95 [place] # (Auto) 0.62 H 0.72 H Eos # (Auto) 0.23 0.22 Baso # (Auto) 0.04 0.05 Immature Gran # (Auto) 0.05 0.04 PT 10.3 INR 0.9 APTT 27 PTT Ratio 1.0 Sodium 139 142 Potassium 3.9 3.7 Chloride 108 H 109 H Carbon Dioxide 24 25 Anion Gap 7 8 BUN 14 12 Creatinine 0.72 0.66 Est Cr Clr Drug Dosing 132.1 144.1 eGFR 116.00 121.70 BUN/Creatinine Ratio 19.4 18.2 Glucose 85 109 H Calcium 9.4 8.7 Magnesium 1.7 4.8 H Total Bilirubin 0.2 0.2 AST 18 15 ALT 25 22 Alkaline Phosphatase 92 87 Troponin I High Sens 5.6 Total Protein 7.0 7.1 Albumin 3.5 3.5 Globulin 3.5 3.6 Albumin/Globulin Ratio 1.0 1.0 Urine Color Yellow Urine Appearance Cloudy A Urine pH 5.5 Ur Specific [place] 1.012 Urine Protein Trace H Urine Glucose (UA) Negative Urine Ketones Negative Urine Blood 2+ H Urine Nitrite Negative Urine Bilirubin Negative Urine Urobilinogen Negative Ur Leukocyte Esterase 3+ H Urine WBC (Auto) >50 H Urine RBC (Auto) 0-2 U Hyaline Cast (Auto) 0-2 U Epithel Cells (Auto) 0-2 Urine Bacteria (Auto) 4+ H
--- OUTSIDE RECORDS SUMMARY | 2024-02-08 22:46 | External Medical Summary | Summary of Care ---
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 Active Peanut LabsTouch Verio Flex System w/Device KitIndications:D iet controlled gestational diabetes mellitus (GDM) in third trimester Use to test blood sugars 4 times daily (fasting, 1 hour after breakfast, lunch, and dinner) 1 Kit 11/15/2023 Active OneTouch Delica Lancets 30GIndications:D iet controlled gestational diabetes mellitus (GDM) in third trimester Use to test blood sugars 4 times daily (fasting, 1 hour after breakfast, lunch, and dinner) 200 Each 6 11/15/2023 Active OneTouch Verio In Vitro Strip (Glucose Blood)Indication s:Diet controlled gestational diabetes mellitus (GDM) in third trimester Use to test blood sugars 4 times daily (fasting, 1 hour after breakfast, lunch, and dinner) 125 Strip 6 01/10/2024 Active documented as of this encounter (statuses as of 01/30/2024) Active Problems Problem Noted Date Diagnosed Date [...] 11/29/23: MFM ADAPT consult complete. Enrolled in [facility]. Instructions provided to report blood sugars each week for MFM review 12/06/[id number] 3 fasting blood sugars (1 elevated) and 4 post prandial values (1 elevated). Messaged to be consistent with testing four times daily and reporting. Review again next week 12/13/[id number] 12/20/23: RPM reviewed; Stable 12/27/[id number]. Multiple missed readings. Sent message asking her to be consistent with testing and reporting 01/03/[id number] 01/10/[id number] via raquel and messaging. Stable. 01/17/[id number] via raquel and messaging. Overall stable (rare elevation) 01/24/[id number] fasting blood sugars. Maternal medicine nurse practitioners to review 01/24/24: RPM reviewed; noted as above. Recommend bedtime snack and fasting no longer than 8-10 hour overnight. Will continue to monitor. May need bedtime insulin next week. Msg sent to [facility] to schedule adapt visit for sometime [...] Recommend nutrition consult with RDN (Registered Dietitian Fishing Gear Mechanic). Lifestyle changes are also indicated including optimizing [...] as of this encounter (statuses as of 01/30/2024) Immunizations Name Administration Dates Next Due TDAP, Age 7 and older, IM (Adacel) 11/08/2023 documented as of this encounter Social History Tobacco Use Types Packs/Day Years Used Date Smoking Tobacco: Never Smokeless Tobacco: Never Alcohol Use Standard Drinks/Week Comments Never 0 (1 standard drink = 0.6 oz pur e alcohol) [place] Depression Scale Answer Date Recorded [place] Depression Scale Total 6 07/19/2023 The thought [...] as of this encounter Progress Notes * Brenda Manuel LPN - 01/30/2024 8:39 AM EST Patient has been discharged from [facility] Diabetes in Home Monitoring Program - Delivery Date 01/29/2024. Brenda Manuel LPN Nurse Navigator [address] documented in this encounter Plan of Treatment Health Maintenance Due Date Last Done Comments [...] trimester 30 weeks gestation of state, incidental Diet controlled gestational diabetes mellitus (GDM) in third trimester- Primary Ultrasound for screening for growth restriction screening for growth retardation using ultrasonics 35 weeks gestation of state, incidental Diet controlled gestational diabetes mellitus (GDM) in third trimester- Primary documented in this encounter
--- NOTE | 2024-02-08 23:33 | Electrocardiogram Report ---
Test Reason : Blood Pressure : */* mmHG Vent. Rate : 58 BPM Atrial Rate : 58 BPM P-R Int : 170 ms QRS Dur : 78 ms QT Int : 404 ms P-R-T Axes : 51 78 34 degrees QTcB Int : 396 ms Sinus bradycardia Possible Left atrial enlargement Borderline ECG When compared with ECG of 13-Sep-2022 11:58, No significant change was found Confirmed by Ryley Jurado ([id number]) on 02/08/2024 11:32:49 PM Referred By: REFERRED SELF Confirmed By: Ryley Jurado
[2024-02-09 04:02] VITALS: RESP 18
[2024-02-09] MEDS: cephALEXin 500 MG CAP PO SCH (09:24)
--- NOTE | 2024-02-09 09:43 | Obstetrical Progress Note ---
Date of Service February 09, 2024 Assessment & Plan Admission and Anticipated Discharge Date Admission Date: February 07, 2024 Subjective Patient is seen and examined. She feels well, no complaints. Ambulating without dizziness Voiding without difficulty Tolerating regular diet with out N&V Bleeding is minimal No OWENS/ Change in vision/ fever/ chills/ CP/ SOB/ N&V/ Leg pain Breast feeding without problems Vital Signs Temp Pulse Pulse Resp BP BP Pulse Ox 02/09/24 04:01 36.9 C 83 18 131/77 96 02/09/24 00:02 36.6 C 82 16 112/71 95 02/08/24 23:31 80 121/70 02/08/24 23:30 37.3 C 18 02/08/24 23:27 88 97 02/08/24 23:22 83 96 02/08/24 23:17 84 96 02/08/24 23:12 81 97 02/08/24 23:07 83 97 02/08/24 23:02 82 98 02/08/24 23:01 80 129/66 02/08/24 22:57 85 97 02/08/24 22:52 84 96 02/08/24 22:47 84 95 02/08/24 22:42 83 96 02/08/24 22:37 85 97 02/08/24 22:32 85 97 02/08/24 22:31 88 127/68 02/08/24 22:27 89 96 02/08/24 22:22 86 97 02/08/24 22:17 87 98 02/08/24 22:12 88 97 02/08/24 22:07 93 H 97 02/08/24 22:02 95 H 95 02/08/24 22:01 96 H 146/77 H 02/08/24 22:00 18 02/08/24 21:57 91 H 95 02/08/24 21:52 92 H 94 02/08/24 21:47 91 H 94 02/08/24 21:42 91 H 95 O2 Del Method 02/09/24 04:01 Room Air 02/09/24 00:02 Room Air 02/08/24 23:31 02/08/24 23:30 02/08/24 23:27 02/08/24 23:22 02/08/24 23:17 02/08/24 23:12 02/08/24 23:07 02/08/24 23:02 02/08/24 23:01 02/08/24 22:57 02/08/24 22:52 02/08/24 22:47 02/08/24 22:42 02/08/24 22:37 02/08/24 22:32 02/08/24 22:31 02/08/24 22:27 02/08/24 22:22 02/08/24 22:17 02/08/24 22:12 02/08/24 22:07 02/08/24 22:02 02/08/24 22:01 02/08/24 22:00 02/08/24 21:57 02/08/24 21:52 02/08/24 21:47 02/08/24 21:42 PE: General: Alert, orientedx3, NAD Abd: soft, NT, fundus firm, below Umbilicus Perineum intact, Lochia rubra minimal Ext; NT, no edema AP: 28 yo s/p on 01/29, readmitted on 02/06 for HT on severe ranfge, s/p IV magnesium, VSS Afebrile doing well Labs WNL BP under control with meds UTI with E/COLI, Started keflex Continue routine care All questions were answered D/C home , f/u in office Results & Data Vital Signs (Past 12 Hours) Vital Signs Temp Pulse Pulse Resp BP BP Pulse Ox 02/09/24 04:01 36.9 C 83 18 131/77 96 02/09/24 00:02 36.6 C 82 16 112/71 95 02/08/24 23:31 80 121/70 02/08/24 23:30 37.3 C 18 02/08/24 23:27 88 97 02/08/24 23:22 83 96 02/08/24 23:17 84 96 02/08/24 23:12 81 97 02/08/24 23:07 83 97 02/08/24 23:02 82 98 02/08/24 23:01 80 129/66 02/08/24 22:57 85 97 02/08/24 22:52 84 96 02/08/24 22:47 84 95 02/08/24 22:42 83 96 02/08/24 22:37 85 97 02/08/24 22:32 85 97 02/08/24 22:31 88 127/68 02/08/24 22:27 89 96 02/08/24 22:22 86 97 02/08/24 22:17 87 98 02/08/24 22:12 88 97 02/08/24 22:07 93 H 97 02/08/24 22:02 95 H 95 02/08/24 22:01 96 H 146/77 H 02/08/24 22:00 18 02/08/24 21:57 91 H 95 02/08/24 21:52 92 H 94 02/08/24 21:47 91 H 94 02/08/24 21:42 91 H 95 O2 Del Method 02/09/24 04:01 Room Air 02/09/24 00:02 Room Air 02/08/24 23:31 02/08/24 23:30 02/08/24 23:27 02/08/24 23:22 02/08/24 23:17 02/08/24 23:12 02/08/24 23:07 02/08/24 23:02 02/08/24 23:01 02/08/24 22:57 02/08/24 22:52 02/08/24 22:47 02/08/24 22:42 02/08/24 22:37 02/08/24 22:32 02/08/24 22:31 02/08/24 22:27 02/08/24 22:22 02/08/24 22:17 02/08/24 22:12 02/08/24 22:07 02/08/24 22:02 02/08/24 22:01 02/08/24 22:00 02/08/24 21:57 02/08/24 21:52 02/08/24 21:47 02/08/24 21:42
[2024-02-09 10:50] VITALS: TEMP 98.2; O2SAT 98
[2024-02-09 11:07] VITALS: BP 163/85; PULSE 83
== END 2024-02-09 12:34 | disposition home health service (06) | DRG 776 ==
LOC: ED 17:56 → 4S1 20:40 → 4E2 02-09 00:09

== ENCOUNTER 2024-05-23 00:30 | Inpatient (IN) ==
[2024-05-23 01:10] LABS: Basophils # (auto) 0.04 K/uL (0.00-0.20); Basophils % (auto) 0.3 %; Eosinophils # (auto) 0.06 K/uL (0.00-0.50); Eosinophils % (auto) 0.5 %; Hematocrit (blood only) 44.9 % (37.0-47.0); Hemoglobin 14.9 g/dl (12.0-16.0); Immature Granulocytes # (auto) 0.05 K/uL (0.01-0.20); Immature Granulocytes % (auto) 0.4 %; Lymphocytes # (auto) 1.71 K/uL (1.20-3.40); Lymphocytes % (auto) 13.1 %; Mean Corpuscular Hemoglobin 28.7 pg (25.0-34.0); Mean Corpuscular Hgb Conc 33.2 g/dL (32.0-36.0); Mean Corpuscular Volume 86.3 fL (80.0-100.0); Mean Platelet Volume 9.9 fL (9.4-12.4); Monocytes # (auto) 1.01 K/uL (0.11-0.59); Monocytes % (auto) 7.8 %; Neutrophils # (auto) 10.15 K/uL (1.40-6.50); Neutrophils % (auto) 77.9 %; Platelet Count 318 K/uL (130-400); RDW Coefficient of Variation 14.2 % (11.5-14.5); RDW Standard Deviation 45.2 fL (36.4-46.3); White Blood Count 13.02 K/ul (4.8-10.8)
[2024-05-23 01:11] LABS: Appearance Urine Clear (Clear); Bacteria Urine Automated 1+ (None Seen); Bilirubin Urine Negative (Negative); Blood Urine Negative (Negative); Cast Urine Automated 0-2 /lpf (0-2); Color Urine Yellow; Glucose Urine UA Negative (Negative); Ketones Urine Negative (Negative); Leukocyte Esterase Urine Trace (Negative); Nitrite Urine Negative (Negative); Protein Urine 2+ (Negative); RBC Urine Automated 0-2 /hpf (0-2); Specific Gravity Urine 1.022 (1.000-1.030); Urobilinogen Urine Negative (Negative); pH Urine 6.5 (4.5-7.5)
[2024-05-23] MEDS: KETOROLAC TROMETHAMINE 15 MG/ML VIAL IV STA (01:28)
[2024-05-23 01:33] LABS: Albumin Globulin Ratio 1.2 (0.9-2); Albumin Level 4.6 gm/dl (3.4-5.0); BUN Creatinine Ratio 14.1 (10-20); Bilirubin,Total 0.3 mg/dl (0.2-1.0); Calcium 10.4 mg/dl (8.6-10.3); Creatinine Clr Calc Pharmacy 105.2 ml/min; Globulin 3.9 gm/dl (2.5-4.0); Total Protein 8.5 gm/dl (6.0-8.3)
--- NOTE | 2024-05-23 01:39 | XRay Report ---
EXAM: XR chest 1V portable CLINICAL HISTORY: Chest pain, nonspecific TECHNIQUE: An X-ray image of the chest is obtained in AP projection. COMPARISON: 09/13/2022 FINDINGS: Pulmonary Parenchyma: Prominent central bronchovascular markings with mild peribronchial thickening. Faint lower zones opacities are seen more on the left, which is likely due to overlying soft tissue shadows. No pulmonary consolidation or collapse. No evidence of significant pleural effusion or thickening. Heart and Mediastinum: Heart size and shape are normal. No mediastinal widening or masses. Bony Thorax: The bony thorax appears intact without fractures or deformities. Soft Tissues: Soft tissues overlying the chest wall are unremarkable. IMPRESSION: 1. No pulmonary consolidation or collapse. (Unchanged) 2. Prominent central bronchovascular markings with peribronchial thickening are more conspicuous in the present study. Clinical correlation is advised to assess for bronchitis/pulmonary congestion. Electronically signed by Emilie Mcclellan 05-23-2024 01:39 AM
[2024-05-23] MEDS: ACETAMINOPHEN 1,000 MG/100 ML VIAL IV STA (01:52)
[2024-05-23] MEDS: SODIUM CHLORIDE 0.9% 1,000 ML IV ONE ×2 (01:53→03:46)
--- NOTE | 2024-05-23 02:01 | Emergency Department Note ---
Impression & Plan Sepsis, Acute UTI (urinary tract infection), Fever, Leukocytosis, Breast pain, right ED Provider Note HISTORY OF PRESENT ILLNESS: Patient is a 29-year-old female presenting with right-sided breast pain. Patient reports symptoms started 1 to 2 days ago. Reports that she also has been having episodes of getting very hot and sweaty and then chilled. Reports nausea. Denies any chest pain or shortness of breath. She is currently breast- feeding. Denies any discharge from her nipple. Denies any lightheadedness or dizziness. Reports she took Tylenol this evening with minimal relief in her symptoms. Denies any abdominal pain, vomiting or diarrhea. Denies any dysuria or hematuria. Denies any vaginal bleeding or discharge. ROS: as above PHYSICAL EXAM: Constitutional: Patient appears in no acute distress. HENT: Head: Normocephalic and atraumatic. Eyes: EOMI, PERRL Mouth/Throat: Mucous membranes moist. Neck: Trachea midline. Neck supple. Cardiovascular: Tachycardic with regular rhythm. No murmurs, rubs or gallops. Intact distal pulses. Pulmonary/Chest: No respiratory distress. Breath sounds clear and equal bilaterally. No wheezes or rales. Right breast is diffusely tender to palpation. No discharge expressed from the nipple. No appreciable erythema to the skin overlying the breast. Abdominal: Abdomen soft, no tenderness, rebound or guarding. Musculoskeletal: No edema, tenderness or deformity noted. Skin: Warm and dry. No rash, erythema, pallor or cyanosis Psychiatric: Appropriate mood and affect for situation. Neurological: Alert and keenly responsive. CN II-XII grossly intact, moving all extremities equally and fully. MDM: - Vitals signs showed hypertension, tachycardia and fever. - History obtained via patient. History as above. - Chronic conditions affecting care: Gestational diabetes - Differential diagnoses include, but are not limited to: Mastitis; breast abscess; sepsis; UTI; pneumonia; viral syndrome - Order placed for continuous cardiac monitoring. At this time, monitor showed rate of 122 bpm with normal sinus rhythm, per my interpretation. - External medical records reviewed. Discharge summary dated 02/17/2024 was reviewed. Patient is status post spontaneous vaginal delivery on 01/30/2024. Patient was diagnosed with with severe features and was placed on antihypertensives as well as IV magnesium for seizure prophylaxis. - EKG image interpreted by myself showed normal sinus rhythm. Rate tachycardic at 117 BPM. QT 306. No acute ischemic changes. - Laboratory workup interpreted by myself showed leukocytosis (WBC 13.02) with neutrophil predominance; normal PT/INR; stable electrolytes; normal troponin; normal lipase - UA showed evidence of infection. - CXR image reviewed by myself is negative for pneumonia, per my interpretation. - Patient initially given 15 mg IV toradol and 1L NS in ER. However, given her significant tachycardia and persistent fever, she was given a gram of Tylenol and additional 1 L normal saline. - Lactate and blood cultures added to workup - Procalcitonin within normal limits - Patient apparently given IV Zosyn. - Patient's sepsis fluid volume calculation based on ideal body weight is 1840.80 mL. - Breast ultrasound was negative for any suspicious masses or abscess. - Patient not have appreciable skin changes on the right breast to suggest mastitis. - Patient meets SIRS criteria, and if her urine is deemed infectious technically meets sepsis criteria. Will admit to hospital service. - Discussion was had with manager rn case about patient's case and need for admission - Hospitalist, Dr. Llanos, consulted for admission - Patient admitted to [facility] service for further evaluation and management. ASSESSMENT AND PLAN: Diagnosis: sepsis; leukocytosis; fever; acute UTI; right breast pain Plan: admit Past Med/Surg History Problem List (Updated 05/23/24 @ 04:39 by Marquita Lynn MD) Breast pain, right (Acute) Leukocytosis (Acute) Fever (Acute) Acute UTI (urinary tract infection) (Acute) Sepsis (Acute) Mild pre-eclampsia, (Acute) hypertension Bilateral lower extremity edema No known health problems GDM (gestational diabetes mellitus), class A1 No significant past surgical history No chronic diseases present Medical History Preeclampsia Gestational diabetes mellitus diet controlled Surgical History No history of previous surgery Social History Smoking Status: Never smoker Second Hand Exposure: No; Hx Alcohol Use: No Hx Substance Use: No Preferred Language: Greenlandic Communication Ability: Effective Qa Reviewer Required: No Beliefs That Will Affect Care: None marital status: marital status details: Art Germain Current Living Situation: Spouse and Family Current Living Situation Comment: lives with current occupational status: employed current occupation: [employer] Feels Safe at Home: Yes Assistive Devices: None Allergies Allergies Allergy/AdvReac Type Severity Reaction Status Date / Time No Known Allergies Allergy Verified 01/29/24 11:50 Home Meds Home Medications Medication Instructions Recorded Confirmed vit no.95-ferrous 1 tab PO DAILY 07/08/23 02/07/24 fumarate 28 mg-folic acid 800 mcg tablet () Previous Rx's Medication Instructions Recorded nifedipine 30 mg tablet,extended 30 mg PO QAM #30 tabs 02/08/24 release 24 hr (Procardia XL) cephalexin 500 mg capsule 500 mg PO TID #20 caps 02/09/24 labetalol 200 mg tablet 200 mg PO TID #90 tabs 02/09/24 Results & Data (ED) Vital Signs Vital Signs - 24 hr 05/23/24 00:35 05/23/24 01:15 05/23/24 01:21 Temperature 39.4 C H Temperature Source Temporal Artery Scan Oral Pulse Rate 119 H 118 H Pulse Rate [Apical] Pulse Rhythm [Apical] Pulse Strength [Apical] Respiratory Rate 22 Respiratory Effort / Characteristics Respiratory Depth Respiratory Pattern Blood Pressure 176/104 H Blood Pressure [Right Arm] Blood Pressure Mean 128 Blood Pressure Mean [Right Arm] Blood Pressure Position [Right Arm] Pulse Oximetry 98 Oxygen Delivery Method Sepsis Recent Fever Within 48 Hours No Sepsis New/Unexplained Change in Mental Status No Sepsis Action Taken by Nursing No Action Required 05/23/24 01:24 05/23/24 01:33 05/23/24 02:16 Temperature 38.3 C H Temperature Source Oral Pulse Rate 119 H 120 H Pulse Rate [Apical] Pulse Rhythm [Apical] Pulse Strength [Apical] Respiratory Rate 24 26 H Respiratory Effort / Characteristics Respiratory Depth Respiratory Pattern Blood Pressure 181/109 H 182/105 H Blood Pressure [Right Arm] Blood Pressure Mean 133 130 Blood Pressure Mean [Right Arm] Blood Pressure Position [Right Arm] Pulse Oximetry 98 97 Oxygen Delivery Method Sepsis Recent Fever Within 48 Hours Sepsis New/Unexplained Change in Mental Status Sepsis Action Taken by Nursing 05/23/24 03:08 05/23/24 03:10 05/23/24 03:17 Temperature 38.6 C H Temperature Source Oral Pulse Rate 116 H Pulse Rate [Apical] 116 H 119 H Pulse Rhythm [Apical] Regular Pulse Strength [Apical] Normal Respiratory Rate 18 22 Respiratory Effort / Characteristics Non-Labored Spontaneous Respiratory Depth Normal Respiratory Pattern Regular Blood Pressure Blood Pressure [Right Arm] 148/83 H 148/83 H Blood Pressure Mean Blood Pressure Mean [Right Arm] 104 104 Blood Pressure Position [Right Arm] Lying Pulse Oximetry 97 96 Oxygen Delivery Method Room Air Room Air Sepsis Recent Fever Within 48 Hours Sepsis New/Unexplained Change in Mental Status Sepsis Action Taken by Nursing Laboratory Data 05/23/24 00:45 05/23/24 00:45 Lab Results 05/23/24 05/23/24 05/23/24 Range/Units 00:45 01:01 03:29 WBC 13.02 H (4.8-10.8) K/ul RBC 5.20 (4.20-5.40) M/uL Hgb 14.9 (12.0-16.0) g/dl Hct 44.9 (37.0-47.0) % MCV 86.3 (80.0-100.0) fL MCH 28.7 (25.0-34.0) pg MCHC 33.2 (32.0-36.0) g/dL RDW Std Deviation 45.2 (36.4-46.3) fL RDW Coeff of [place] 14.2 (11.5-14.5) % Plt Count 318 (130-400) K/uL MPV 9.9 (9.4-12.4) fL Immature Gran % (Auto) 0.4 % Neut % (Auto) 77.9 % Lymph % (Auto) 13.1 % [place] % (Auto) 7.8 % Eos % (Auto) 0.5 % Baso % (Auto) 0.3 % Neut # (Auto) 10.15 H (1.40-6.50) K/uL Lymph # (Auto) 1.71 (1.20-3.40) K/uL [place] # (Auto) 1.01 H (0.11-0.59) K/uL Eos # (Auto) 0.06 (0.00-0.50) K/uL Baso # (Auto) 0.04 (0.00-0.20) K/uL Immature Gran # (Auto) 0.05 (0.01-0.20) K/uL PT 11.0 (9.0-12.0) Seconds INR 1.0 (0.9-1.1) Sodium 137 (136-145) mmol/L Potassium 4.0 (3.5-5.1) mmol/L Chloride 105 (98-107) mmol/L Carbon Dioxide 26 (21-32) mmol/L Anion Gap 6 (3-11) BUN 13 (6-23) mg/dl Creatinine 0.92 (0.6-1.2) mg/dl Est Cr Clr Drug Dosing 105.2 ml/min eGFR 85.90 BUN/Creatinine Ratio 14.1 (10-20) Glucose 110 H (70-99(Fasting)) mg/dl Lactate 0.7 (0.4-2.0) mmol/L Calcium 10.4 H (8.6-10.3) mg/dl Phosphorus 2.2 L (2.5-4.9) mg/dl Magnesium 1.9 (1.7-2.4) mg/dl Total Bilirubin 0.3 (0.2-1.0) mg/dl AST 23 (13-39) U/L ALT 27 (7-52) U/L Alkaline Phosphatase 86 (34-104) U/L Troponin I High Sens 7.0 (0-14) pg/ml Total Protein 8.5 H (6.0-8.3) gm/dl Albumin 4.6 (3.4-5.0) gm/dl Globulin 3.9 (2.5-4.0) gm/dl Albumin/Globulin Ratio 1.2 (0.9-2) Lipase 8 L (11-82) U/L Procalcitonin 0.06 (0-0.5) ng/ml Urine Color Yellow Urine Appearance Clear (Clear) Urine pH 6.5 (4.5-7.5) Ur Specific [place] 1.022 (1.000-1.030) Urine Protein 2+ H (Negative) Urine Glucose (UA) Negative (Negative) Urine Ketones Negative (Negative) Urine Blood Negative (Negative) Urine Nitrite Negative (Negative) Urine Bilirubin Negative (Negative) Urine Urobilinogen Negative (Negative) Ur Leukocyte Esterase Trace H (Negative) Urine WBC (Auto) 6-10 H (0-5) /hpf Urine RBC (Auto) 0-2 (0-2) /hpf U Hyaline Cast (Auto) 0-2 (0-2) /lpf U Epithel Cells (Auto) 6-10 H (0-2) /hpf Urine Bacteria (Auto) 1+ H (None Seen) Administered Medications Discontinued Medications Sodium Chloride (Nss) 1,000 mls @ 999 mls/hr IV .Q1H1M ONE Stop: 05/23/24 02:44 Last Infusion: 05/23/24 03:01 Dose: Infused Documented By: Admin: 05/23/24 01:53 Dose: 999 mls/hr Documented By: CARRILLO Acetaminophen (Ofirmev) 1,000 mg in 100 mls @ 400 mls/hr IV NOW STA Stop: 05/23/24 01:58 Last Infusion: 05/23/24 02:07 Dose: Infused Documented By: Admin: 05/23/24 01:52 Dose: 400 mls/hr Documented By: CARRILLO Sodium Chloride (Nss) 1,000 mls @ 999 mls/hr IV .Q1H1M ONE Stop: 05/23/24 03:35 Last Admin: 05/23/24 03:46 Dose: 999 mls/hr Documented By: CARRILLO Piperacillin Sod/Tazobactam Sod (Zosyn) 4.5 gm in 100 mls @ 200 mls/hr IV NOW ONE; Protocol Stop: 05/23/24 03:04 Last Admin: 05/23/24 03:46 Dose: 200 mls/hr Documented By: CARRILLO Ketorolac Tromethamine (Ketorolac Tromethamine 15 Mg/Ml Vial) 15 mg IV NOW STA Stop: 05/23/24 01:23 Last Admin: 05/23/24 01:28 Dose: 15 mg Documented By: CARRILLO Imaging Data Radiologist's Impression: Chest X-Ray 05/23/24 00:45 EXAM: XR chest 1V portable CLINICAL HISTORY: Chest pain, nonspecific TECHNIQUE: An X-ray image of the chest is obtained in AP projection. COMPARISON: 09/13/2022 FINDINGS: Pulmonary Parenchyma: Prominent central bronchovascular markings with mild peribronchial thickening. Faint lower zones opacities are seen more on the left, which is likely due to overlying soft tissue shadows. No pulmonary consolidation or collapse. No evidence of significant pleural effusion or thickening. Heart and Mediastinum: Heart size and shape are normal. No mediastinal widening or masses. Bony Thorax: The bony thorax appears intact without fractures or deformities. Soft Tissues: Soft tissues overlying the chest wall are unremarkable. IMPRESSION: 1. No pulmonary consolidation or collapse. (Unchanged) 2. Prominent central bronchovascular markings with peribronchial thickening are more conspicuous in the present study. Clinical correlation is advised to assess for bronchitis/pulmonary congestion. Electronically signed by Emilie Mcclellan 05-23-2024 01:39 AM Breast Ultrasound 05/23/24 02:01 EXAM: US breast RT limited CLINICAL HISTORY: R breast pain; ; r/o abscess TECHNIQUE: Multiple grayscale and doppler ultrasound images of right breast were obtained. COMPARISON: none FINDINGS: Breast Tissue: The breast tissue shows diffuse hyperechoic breast parenchyma with dilated lactiferous ducts, no fluid collection noted at the region of interest No evidence of suspicious masses or lesions. Masses: No discrete masses identified. Cysts: No simple or complex cysts identified. Ducts: Mildly dilated retro areolar ducts Skin and Nipple: Normal appearance of the skin and nipple. No thickening or retraction. IMPRESSION: 1. Right breast accepted lactational changes 2. No evidence of suspicious masses, cysts, or significant abnormalities. Recommendation : A screening mammogram is recommended at the age of 40 or sooner if clinically indicated. BI-RADS Category 2: Benign findings. DISCLAIMER:A breast ultrasound can miss masses and should not be relied upon solely to make clinical decisions without an accurate physical examination and mammography if needed. A negative breast ultrasound does not exclude a malignancy and further referral to a breast center is recommended. Electronically signed by Emilie Mcclellan 05-23-2024 04:35 AM Discharge Plan Visit Data Chief Complaint: Chest Pain Stated Complaint: BREATS PAIN ED Provider: Marquita Lynn Discharge Problem: Sepsis, Acute UTI (urinary tract infection), Fever, Leukocytosis, Breast pain, right Forms Stand Alone Forms: My [email or web address] Prescriptions Prescriptions: No Action PNV cmb#95-ferrous fumarate-FA [] 28 mg iron- 800 mcg Tablet 1 tab PO DAILY nifedipine [Procardia XL] 30 mg Tablet Extended Release 24hr 30 mg PO QAM Qty: 30 2RF cephalexin 500 mg Capsule 500 mg PO TID Qty: 20 0RF labetalol 200 mg Tablet 200 mg PO TID Qty: 90 3RF Referrals Referrals: PCP,NO [Primary Care Provider] -
[2024-05-23] MEDS: PIPERACILLIN/TAZOBACTAM 4.5 GM/100 ML BAG IV ONE (03:46)
--- NOTE | 2024-05-23 04:13 | History & Physical Report ---
Date of Service May 23, 2024 Assessment & Plan (1) Sepsis: Plan: Sepsis secondary to mastitis right Hypertensive urgency secondary to illness History of hypertension currently not on maintenance meds Likely chronic BP elevation given biatrial enlargement on EKG Hyperglycemia History of gestational DM as per records Admit to medical telemetry CS, Zosyn IV Lopressor 1 dose now Resume previous labetalol Rx for BP control if with persistent BP elevation Update hemoglobin A1c DVT prophylaxis. Lovenox subcu Full code Text document was generated using PK Clean voice recognition software. It may contain grammatical or spelling errors. Kindly contact undersigned for clarification of any documentation item in question. History of Present Illness Chief Complaint: Right-sided breast pain Primary Care Provider: NO PCP History obtained from patient, family, and records. Medical history significant for hypertension, gestational DM. Last confinement January 2024 under [employer] service for hypertension. Patient discharged on labetalol and Procardia Rx which eventually were stopped outpatient. Few days history of right-sided breast pain associated with sweats and chills. Denies cough, SOB, abdominal pain, diarrhea, dysuria symptoms. IV Zosyn administered at the ER. Highest SBP of 180s documented at the ER. 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 Allergies Allergy/AdvReac Type Severity Reaction Status Date / Time No Known Allergies Allergy Verified 01/29/24 11:50 Home Medications Medication Instructions Recorded Confirmed Type vit no.95-ferrous 1 tab PO DAILY 07/08/23 05/23/24 History fumarate 28 mg-folic acid 800 mcg tablet () Past Med/Surg History Problem List (Updated 05/23/24 @ 05:38 by Faustina Ramirez) Breast pain, right (Acute) Leukocytosis (Acute) Fever (Acute) Acute UTI (urinary tract infection) (Acute) Sepsis (Acute) Mild pre-eclampsia, (Acute) hypertension Bilateral lower extremity edema No known health problems GDM (gestational diabetes mellitus), class A1 No significant past surgical history No chronic diseases present Medical History Preeclampsia Gestational diabetes mellitus diet controlled Surgical History No history of previous surgery Social History Smoking Status: Never smoker Second Hand Exposure: No; Do You Dip or Chew Tobacco: No; Hx Alcohol Use: No Hx Substance Use: No Preferred Language: Malay Communication Ability: Effective Internet Sourcer Required: No Beliefs That Will Affect Care: None marital status: marital status details: Art Germain Current Living Situation: Spouse and Family Current Living Situation Comment: lives with current occupational status: employed current occupation: [employer] Other Information That Helps Us Care for You: No Feels Safe at Home: Yes Safety Concerns: Feels Safe At This Time Assistive Devices: None Review of Systems Review of Systems: As per HPI, all other systems reviewed and negative Physical Exam Physical Exam: GENERAL: Comfortable, obese, pleasant, no respiratory distress SKIN: Normal color, warm HEENT: [place] palpebral conjunctivae, no ptosis, dry buccal mucosa NECK : Supple, no tenderness CHEST : Medial right breast tenderness, clear to auscultation HEART : Tachycardic, no obvious murmurs ABDOMEN: Some distention, nontender EXTREMITIES : Minimal LE swelling without LE tenderness, palpable pulses, no other conspicuous deformities noted NEUROLOGIC : Coherent, no facial asymmetry, no other gross focality Results & Data Results & Data Vital Signs (Past 12 Hours) Vital Signs Temp Pulse Pulse Resp BP BP Pulse Ox 05/23/24 03:17 116 H 05/23/24 03:10 38.6 C H 119 H 22 148/83 H 96 05/23/24 03:08 116 H 18 148/83 H 97 05/23/24 02:16 38.3 C H 05/23/24 01:33 120 H 26 H 182/105 H 97 05/23/24 01:24 119 H 24 181/109 H 98 05/23/24 01:21 39.4 C H 05/23/24 01:15 118 H 05/23/24 00:35 119 H 22 176/104 H 98 O2 Del Method 05/23/24 03:17 05/23/24 03:10 Room Air 05/23/24 03:08 Room Air 05/23/24 02:16 05/23/24 01:33 05/23/24 01:24 05/23/24 01:21 05/23/24 01:15 05/23/24 00:35 Laboratory Results Laboratory Results WBC 13.02 K/ul (4.8-10.8) H 05/23/24 00:45 RBC 5.20 M/uL (4.20-5.40) 05/23/24 00:45 Hgb 14.9 g/dl (12.0-16.0) 05/23/24 00:45 Hct 44.9 % (37.0-47.0) 05/23/24 00:45 MCV 86.3 fL (80.0-100.0) 05/23/24 00:45 MCH 28.7 pg (25.0-34.0) 05/23/24 00:45 MCHC 33.2 g/dL (32.0-36.0) 05/23/24 00:45 RDW Std Deviation 45.2 fL (36.4-46.3) 05/23/24 00:45 RDW Coeff of [place] 14.2 % (11.5-14.5) 05/23/24 00:45 Plt Count 318 K/uL (130-400) 05/23/24 00:45 MPV 9.9 fL (9.4-12.4) 05/23/24 00:45 Immature Gran % (Auto) 0.4 % 05/23/24 00:45 Neut % (Auto) 77.9 % 05/23/24 00:45 Lymph % (Auto) 13.1 % 05/23/24 00:45 [place] % (Auto) 7.8 % 05/23/24 00:45 Eos % (Auto) 0.5 % 05/23/24 00:45 Baso % (Auto) 0.3 % 05/23/24 00:45 Neut # (Auto) 10.15 K/uL (1.40-6.50) H 05/23/24 00:45 Lymph # (Auto) 1.71 K/uL (1.20-3.40) 05/23/24 00:45 [place] # (Auto) 1.01 K/uL (0.11-0.59) H 05/23/24 00:45 Eos # (Auto) 0.06 K/uL (0.00-0.50) 05/23/24 00:45 Baso # (Auto) 0.04 K/uL (0.00-0.20) 05/23/24 00:45 Immature Gran # (Auto) 0.05 K/uL (0.01-0.20) 05/23/24 00:45 PT 11.0 Seconds (9.0-12.0) 05/23/24 00:45 INR 1.0 (0.9-1.1) 05/23/24 00:45 Sodium 137 mmol/L (136-145) 05/23/24 00:45 Potassium 4.0 mmol/L (3.5-5.1) 05/23/24 00:45 Chloride 105 mmol/L (98-107) 05/23/24 00:45 Carbon Dioxide 26 mmol/L (21-32) 05/23/24 00:45 Anion Gap 6 (3-11) 05/23/24 00:45 BUN 13 mg/dl (6-23) 05/23/24 00:45 Creatinine 0.92 mg/dl (0.6-1.2) 05/23/24 00:45 Est Cr Clr Drug Dosing 105.2 ml/min 05/23/24 00:45 eGFR 85.90 05/23/24 00:45 BUN/Creatinine Ratio 14.1 (10-20) 05/23/24 00:45 Glucose 110 mg/dl (70-99(Fasting)) H 05/23/24 00:45 Lactate 0.7 mmol/L (0.4-2.0) 05/23/24 03:29 Calcium 10.4 mg/dl (8.6-10.3) H 05/23/24 00:45 Total Bilirubin 0.3 mg/dl (0.2-1.0) 05/23/24 00:45 AST 23 U/L (13-39) 05/23/24 00:45 ALT 27 U/L (7-52) 05/23/24 00:45 Alkaline Phosphatase 86 U/L (34-104) 05/23/24 00:45 Troponin I High Sens 7.0 pg/ml (0-14) 05/23/24 00:45 Total Protein 8.5 gm/dl (6.0-8.3) H 05/23/24 00:45 Albumin 4.6 gm/dl (3.4-5.0) 05/23/24 00:45 Globulin 3.9 gm/dl (2.5-4.0) 05/23/24 00:45 Albumin/Globulin Ratio 1.2 (0.9-2) 05/23/24 00:45 Lipase 8 U/L (11-82) L 05/23/24 00:45 Procalcitonin 0.06 ng/ml (0-0.5) 05/23/24 00:45 Urine Color Yellow 05/23/24 01:01 Urine Appearance Clear (Clear) 05/23/24 01:01 Urine pH 6.5 (4.5-7.5) 05/23/24 01:01 Ur Specific [place] 1.022 (1.000-1.030) 05/23/24 01:01 Urine Protein 2+ (Negative) H 05/23/24 01:01 Urine Glucose (UA) Negative (Negative) 05/23/24 01:01 Urine Ketones Negative (Negative) 05/23/24 01:01 Urine Blood Negative (Negative) 05/23/24 01:01 Urine Nitrite Negative (Negative) 05/23/24 01:01 Urine Bilirubin Negative (Negative) 05/23/24 01:01 Urine Urobilinogen Negative (Negative) 05/23/24 01:01 Ur Leukocyte Esterase Trace (Negative) H 05/23/24 01:01 Urine WBC (Auto) 6-10 /hpf (0-5) H 05/23/24 01:01 Urine RBC (Auto) 0-2 /hpf (0-2) 05/23/24 01:01 U Hyaline Cast (Auto) 0-2 /lpf (0-2) 05/23/24 01:01 U Epithel Cells (Auto) 6-10 /hpf (0-2) H 05/23/24 01:01 Urine Bacteria (Auto) 1+ (None Seen) H 05/23/24 01:01 Impressions Chest X-Ray 05/23/24 00:45 EXAM: XR chest 1V portable CLINICAL HISTORY: Chest pain, nonspecific TECHNIQUE: An X-ray image of the chest is obtained in AP projection. COMPARISON: 09/13/2022 FINDINGS: Pulmonary Parenchyma: Prominent central bronchovascular markings with mild peribronchial thickening. Faint lower zones opacities are seen more on the left, which is likely due to overlying soft tissue shadows. No pulmonary consolidation or collapse. No evidence of significant pleural effusion or thickening. Heart and Mediastinum: Heart size and shape are normal. No mediastinal widening or masses. Bony Thorax: The bony thorax appears intact without fractures or deformities. Soft Tissues: Soft tissues overlying the chest wall are unremarkable. IMPRESSION: 1. No pulmonary consolidation or collapse. (Unchanged) 2. Prominent central bronchovascular markings with peribronchial thickening are more conspicuous in the present study. Clinical correlation is advised to assess for bronchitis/pulmonary congestion. Electronically signed by Emilie Mcclellan 05-23-2024 01:39 AM Right breast ultrasound: 1. Right breast accepted lactational changes 2. No evidence of suspicious masses, cysts, or significant abnormalities. Diagnostic Findings EKG as per my interpretation : Rate 120, sinus tachycardia, normal axis, biatrial enlargement, no ischemia
[2024-05-23 04:32] LABS: Magnesium 1.9 mg/dl (1.7-2.4); Phosphorus 2.2 mg/dl (2.5-4.9)
--- NOTE | 2024-05-23 04:35 | Ultrasound Report ---
EXAM: US breast RT limited CLINICAL HISTORY: R breast pain; ; r/o abscess TECHNIQUE: Multiple grayscale and doppler ultrasound images of right breast were obtained. COMPARISON: none FINDINGS: Breast Tissue: The breast tissue shows diffuse hyperechoic breast parenchyma with dilated lactiferous ducts, no fluid collection noted at the region of interest No evidence of suspicious masses or lesions. Masses: No discrete masses identified. Cysts: No simple or complex cysts identified. Ducts: Mildly dilated retro areolar ducts Skin and Nipple: Normal appearance of the skin and nipple. No thickening or retraction. IMPRESSION: 1. Right breast accepted lactational changes 2. No evidence of suspicious masses, cysts, or significant abnormalities. Recommendation : A screening mammogram is recommended at the age of 40 or sooner if clinically indicated. BI-RADS Category 2: Benign findings. DISCLAIMER:A breast ultrasound can miss masses and should not be relied upon solely to make clinical decisions without an accurate physical examination and mammography if needed. A negative breast ultrasound does not exclude a malignancy and further referral to a breast center is recommended. Electronically signed by Emilie Mcclellan 05-23-2024 04:35 AM
[2024-05-23 04:55] LABS: Adenovirus PCR Not Detected (NotDetected); Bordetella parapertussis PCR Not Detected (NotDetected); Bordetella pertussis PCR Not Detected (NotDetected); Chlamydia pneumoniae PCR Not Detected (NotDetected); Coronavirus 229E PCR Not Detected (NotDetected); Coronavirus CoV-2 (COVID19)PCR Not Detected (NotDetected); Coronavirus HKU1 PCR Not Detected (NotDetected); Coronavirus NL63 PCR Not Detected (NotDetected); Coronavirus OC43PCR Not Detected (NotDetected); Human Metapneumovirus PCR Not Detected (NotDetected); Influenza A PCR Not Detected (NotDetected); Influenza B PCR Not Detected (NotDetected); Mycoplasma pneumoniae PCR Not Detected (NotDetected); Parainfluenza Virus 1 PCR Not Detected (NotDetected); Parainfluenza Virus 2 PCR Not Detected (NotDetected); Parainfluenza Virus 3 PCR Not Detected (NotDetected); Parainfluenza Virus 4 PCR Not Detected (NotDetected); Respiratory Syncytial VirusPCR Not Detected (NotDetected); Rhinovirus/Enterovirus PCR Not Detected (NotDetected)
[2024-05-23 05:06] LABS: Pregnancy Test, Urine Negative (Negative)
[2024-05-23] MEDS ORDERED: LORazepam 0.5 MG TAB PO PRN (05:56)
[2024-05-23] MEDS ORDERED: PROMETHAZINE 12.5 MG/50.5 ML BAG IV PRN (05:56)
[2024-05-23] MEDS: METOPROLOL TARTRATE 1 MG/ML VIAL IV STA (05:57)
[2024-05-23] MEDS: ACETAMINOPHEN 325 MG TAB PO PRN (06:04)
--- NOTE | 2024-05-23 07:54 | Electrocardiogram Report ---
Test Reason : Blood Pressure : */* mmHG Vent. Rate : 117 BPM Atrial Rate : 117 BPM P-R Int : 176 ms QRS Dur : 80 ms QT Int : 306 ms P-R-T Axes : 58 70 37 degrees QTcB Int : 426 ms Sinus tachycardia Biatrial enlargement Abnormal ECG When compared with ECG of 07-Feb-2024 18:48, Vent. rate has increased by 59 bpm Confirmed by Bandar Johnson ([id number]) on 05/23/2024 7:54:38 AM Referred By: REFERRED SELF Confirmed By: Bandar Johnson
[2024-05-23] MEDS: ENOXAPARIN INJ 40 MG/0.4 ML SYR SQ SCH (09:15)
[2024-05-23] MEDS: PRENATAL VITAMIN 1 TAB PO SCH (09:15)
[2024-05-23] MEDS: oxyCODONE HCL IR 5 MG TAB (IMMEDIATE RELEASE) PO PRN (09:15)
[2024-05-23] MEDS: PIPERACILLIN/TAZOBACTAM 4.5 GM/100 ML BAG IV SCH ×2 (09:16→17:40)
--- OUTSIDE RECORDS SUMMARY | 2024-05-23 10:35 | External Medical Summary | Summary of Care ---
Author Name Unknown Organization [facility] Address [address] [place] [address] Phone [phone] Care Team Providers Care Watcher Lookout Tower Name Role Phone Unavailable Primary Care Provider Unavailabl e Reason for Visit * Reason Onset Date Comments 03/14/2024 Encounter Details Date Type Department Care Team (Late st Contact Info) Description 03/14/2024 Telephone Gynecology/Obstetrics [facility] Te[facility]ada [address] [facility] [id number] Nancy Girard CRNP [address] [facility] [address] Allergies No known active allergiesdocumented as of this encounter (statuses as of 03/14/2024) Medications 6.75-0.2 MG Oral Tablet Take by mouth. Active LevelUpio Flex System w/Device KitIndications:D iet controlled gestational diabetes mellitus (GDM) in third trimester Use to test blood sugars 4 times daily (fasting, 1 hour after breakfast, lunch, and dinner) 1 Kit 11/15/2023 Active Senior Whole HealthTouch Delica Lancets 30GIndications:D iet controlled gestational diabetes mellitus (GDM) in third trimester Use to test blood sugars 4 times daily (fasting, 1 hour after breakfast, lunch, and dinner) 200 Each 6 11/15/2023 Active Senior Whole HealthTouch Verio In Vitro Strip (Glucose Blood)Indication s:Diet controlled gestational diabetes mellitus (GDM) in third trimester Use to test blood sugars 4 times daily (fasting, 1 hour after breakfast, lunch, and dinner) 125 Strip 6 01/10/2024 Active Labetalol HCl 200 MG Oral Tablet (Normodyne) Take 1 Tablet by mouth once. 02/09/2024 Active Cephalexin 500 MG Oral Capsule (Keflex) 1 Capsule. 07/08/2023 Active documented as of this encounter (statuses as of 03/14/2024) Active Problems Problem Noted Date Diagnosed Date [...] blood sugars each week for MFM review 12/06/[id number]-WPZ-jqduptju 3 fasting blood sugars (1 elevated) and 4 post prandial values (1 elevated). Messaged to be consistent with testing four times daily and reporting. Review again next week 12/13/[id number]-mqmpya 12/20/23: RPM reviewed; Stable 12/27/[id number]-ZXY-sbuemd. Multiple missed readings. Sent message asking her to be consistent with testing and reporting 01/03/[id number]-KOD-lsplea 01/10/[id number]-tftmszhcn via raquel and messaging. Stable. 01/17/[id number]-ekwkgkdyj via raquel and messaging. Overall stable (rare elevation) 01/24/[id number]-QRY-gcxprkqj fasting blood sugars. Maternal medicine nurse practitioners to review 01/24/24: RPM reviewed; noted as above. Recommend bedtime snack and fasting no longer than 8-10 hour overnight. Will continue to monitor. May need bedtime insulin next week. Msg sent to [facility] to schedule adapt visit for sometime [...] Recommend nutrition consult with RDN (Registered Dietitian Functional Support Analyst). Lifestyle changes are also indicated including [...] of high risk , antepartum 0 07/19/2023 documented as of this encounter (statuses as of 03/14/2024) Immunizations Name Administration Dates Next Due TDAP, Age 7 and older, IM (Adacel) 11/08/2023 documented as of this encounter Social History Tobacco Use Types Packs/Day Years Used Date Smoking Tobacco: Never Smokeless Tobacco: Never Alcohol Use Standard Drinks/Week Comments Never 0 (1 standard drink = 0.6 oz pur e alcohol) [place] Depression Scale Answer Date Recorded [place] Depression Scale Total 14 02/14/2024 The thought of harming myself has occurred to me . Never 02/14/2024 Comments No Sex and Gender Information Value Date Recorded Sex Assigned at Not on file Legal Sex Female 10:20 PM EDT Gender Identity Not on file Sexual Orientation Not on file documented as of this encounter Miscellaneous Notes * Telephone Encounter - Stacie Rodriguez CMA - 03/14/2024 3:16 PM EST FMLA papers signed, faxed and placed in triage for patient to brain picker documented in this encounter Plan of Treatment Upcoming Encounters Date Type Department Care Team (Late st Contact Info) Description 03/15/2024 10:30 AM EST Office Visit Gynecology/Obstetrics [facility] [address] [place] [address] Stephen Mclaughlin MD [address] [place] [phone] Health Maintenance Due Date Last Done Comments [...] 5 Years) and At-Risk Patients (6 to 18 Years and 19+ Years) Aged Out No longer eligible b ased on patient's age to complete this topic documented as of this encounter Medical Devices Not on filedocumented as of this encounter
--- OUTSIDE RECORDS SUMMARY | 2024-05-23 10:35 | External Medical Summary | Summary of Care ---
Author Name Unknown Organization [facility] Address [address] [place] [address] Phone [phone] Care Team Providers Care Director Print Name Role Phone Unavailable Primary Care Provider Unavailabl e Encounter Details Date Type Department Care Team (Late st Contact Info) Description 02/14/2024 Telephone Gynecology/Obstetrics Flavio Tejada [address] [facility] [address] Stephen Mclaughlin MD [address] [place] [address] Allergies No known active allergiesdocumented as of this encounter (statuses as of 02/14/2024) Medications 6.75-0.2 MG Oral Tablet Take by [...] as of this encounter (statuses as of 02/14/2024) Active Problems Problem Noted Date Diagnosed Date [...] blood sugars each week for MFM review 12/06/20235887-QEX-dytqdxrc 3 fasting blood sugars (1 elevated) and 4 post prandial values (1 elevated). Messaged to be consistent with testing four times daily and reporting. Review again next week 12/13/[id number]-oowzar 12/20/23: RPM reviewed; Stable 12/27/20233297-CTE-pwpszc. Multiple missed readings. Sent message asking her to be consistent with testing and reporting 01/03/20248545-CIT-ribwzp 01/10/[id number]-OTX-wezzqwyqq via raquel and messaging. Stable. 01/17/[id number]-BVL-tcpupsqid via raquel and messaging. Overall stable (rare elevation) 01/24/[id number]-CAX-ofbyffuu fasting blood sugars. Maternal medicine nurse practitioners to review 01/24/24: RPM reviewed; noted as above. Recommend bedtime snack and fasting no longer than 8-10 hour overnight. Will continue to monitor. May need bedtime insulin next week. Msg sent to [facility] to schedule adapt visit for sometime [...] Recommend nutrition consult with RDN (Registered Dietitian Smoking Pipe Mounter). Lifestyle changes are also indicated including optimizing [...] as of this encounter (statuses as of 02/14/2024) Immunizations Name Administration Dates Next Due TDAP, Age 7 and older, IM (Adacel) 11/08/2023 documented as of this encounter Social History Tobacco Use Types Packs/Day Years Used Date Smoking Tobacco: Never Smokeless Tobacco: Never Alcohol Use Standard Drinks/Week Comments Never 0 (1 standard drink = 0.6 oz pur e alcohol) [place] Depression Scale Answer Date Recorded [place] Depression Scale Total 14 02/14/2024 The thought of harming myself has occurred to me . Never 02/14/2024 Comments No Sex and Gender Information Value Date Recorded Sex Assigned at Not on file Legal Sex Female 10:20 PM EDT Gender Identity Not on file Sexual Orientation Not on file documented as of this encounter Miscellaneous Notes * Telephone Encounter - Nova Almodovar RN - 02/14/2024 4:47 PM EST Called patient about elevated depression screening of 14 in peds office. Patient states she is having a lot of anxious thoughts as a new mom but has no concerns for severe depression. Partner is helping care for baby but recently resumed to work. She has a support system and is aware to call us back with any worsening symptoms.she has appt in office next week. documented in this encounter Plan of Treatment Upcoming Encounters Date Type Department Care Team (Late st Contact Info) Description 02/20/2024 11:45 AM EST [facility] [address] [place] [address] Stephen Mclaughlin MD [address] [place] [address] 02/21/2024 11:30 AM EST Telemedicine Gynecology/Obstetrics [facility] [address] [place] [address] Nancy Girard CRNP [address] [place] [address] 03/15/2024 10:30 AM EST Office Visit [facility]necology/Obstetrics [facility] [address] [place] [address] Stephen Mclaughlin MD [address] [place] [address] Health Maintenance Due Date Last Done Comments [...]
--- OUTSIDE RECORDS SUMMARY | 2024-05-23 10:35 | External Medical Summary | Summary of Care ---
Author Name Unknown Organization [facility] Address [address] [place] [address] Phone [phone] Care Team Providers Care Household Coordinator Name Role Phone Unavailable Primary Care Provider Unavailabl e Reason for Visit * Reason Onset Date Comments Forms Request 03/11/2024 Encounter Details Date Type Department Care Team (Late st Contact Info) Description 03/11/2024 Telephone Gynecology/Obstetrics Flavio Tejada [address] [facility] [place] [address] Nancy Girard CRNP [address] [facility] [place] [phone] Forms Request Allergies No known active allergiesdocumented as of this encounter (statuses as of 03/11/2024) Medications 6.75-0.2 MG Oral Tablet Take by mouth. Active Safety Services Companyio Flex System w/Device KitIndications:D iet controlled gestational diabetes mellitus (GDM) in third trimester Use to test blood sugars 4 times daily (fasting, 1 hour after breakfast, lunch, and dinner) 1 Kit 11/15/2023 Active SensingStripTouch Delica Lancets 30GIndications:D iet controlled gestational diabetes mellitus (GDM) in third trimester Use to test blood sugars 4 times daily (fasting, 1 hour after breakfast, lunch, and dinner) 200 Each 6 11/15/2023 Active SensingStripTouch Verio In Vitro Strip (Glucose Blood)Indication s:Diet [...] as of this encounter (statuses as of 03/11/2024) Active Problems Problem Noted Date Diagnosed Date [...] blood sugars each week for MFM review 12/06/20236420-ZVJ-ychkjihv 3 fasting blood sugars (1 elevated) and 4 post prandial values (1 elevated). Messaged to be consistent with testing four times daily and reporting. Review again next week 12/13/[id number]-MME-kpgxha 12/20/23: RPM reviewed; Stable 12/27/[id number]-BEG-tifcoe. Multiple missed readings. Sent message asking her to be consistent with testing and reporting 01/03/[id number]-VTM-earhoj 01/10/[id number]-CFS-ktourxuwn via raquel and messaging. Stable. 01/17/[id number]-FFO-kagufrvzs via raquel and messaging. Overall stable (rare elevation) 01/24/[id number]-YPR-vpussopv fasting blood sugars. Maternal medicine nurse practitioners to review 01/24/24: RPM reviewed; noted as above. Recommend bedtime snack and fasting no longer than 8-10 hour overnight. Will continue to monitor. May need bedtime insulin next week. Msg sent to [facility] PARs to schedule adapt visit for sometime [...] Recommend nutrition consult with RDN (Registered Dietitian Business Systems Consultant). Lifestyle changes are also indicated including optimizing [...] as of this encounter (statuses as of 03/11/2024) Immunizations Name Administration Dates Next Due TDAP, Age 7 and older, IM (Adacel) 11/08/2023 documented as of this encounter Social History Tobacco Use Types Packs/Day Years Used Date Smoking Tobacco: Never Smokeless Tobacco: Never Alcohol Use Standard Drinks/Week Comments Never 0 (1 standard drink = 0.6 oz pur e alcohol) [place] Depression Scale Answer Date Recorded [place] Depression Scale Total 14 02/14/2024 The thought of harming myself has occurred to me . Never 02/14/2024 Comments No Sex and Gender Information Value Date Recorded Sex Assigned at Not on file Legal Sex Female 10:20 PM EDT Gender Identity Not on file Sexual Orientation Not on file documented as of this encounter Miscellaneous Notes * Telephone Encounter - Allie Gleason LPN - 03/11/2024 3:25 PM EST Pt calling to inquire about paperwork that was sent. Per renetta, just received through [facility] today. Patient will be notified when ready. Patient agreeable to this. documented in this encounter Plan of Treatment Upcoming Encounters Date Type Department Care Team (Late st Contact Info) Description 03/15/2024 10:30 AM EST Office Visit Gynecology/Obstetrics [facility] [address] [place] [address] Stephen Mclaughlin MD [address] [place] [address] Health Maintenance Due Date Last Done Comments [...]
--- OUTSIDE RECORDS SUMMARY | 2024-05-23 10:35 | External Medical Summary | Summary of Care ---
Author Name Unknown Organization [facility] Address [address] [place] [address] Phone [phone] Care Team Providers Care Refinery Operator Light Ends Recovery Name Role Phone Unavailable Primary Care Provider Unavailabl e Reason for Visit * Reason Onset Date Comments 03/14/2024 Encounter Details Date Type Department Care Team (Late st Contact Info) Description 03/14/2024 Telephone Gynecology/Obstetrics Flavio Tejada [address] [facility] [place] [address] Nancy Girard CRNP [address] [facility] [address] Allergies No known active allergiesdocumented as of this encounter (statuses as of 03/15/2024) Medications 6.75-0.2 MG Oral Tablet Take by mouth. Active Labetalol HCl 200 MG Oral Tablet (Normodyne) Take 1 Tablet by mouth once. 4 Active Cephalexin 500 MG Oral Capsule (Keflex) 1 Capsule. 4 Active OneTouch Verio Flex System w/Device KitIndications:D iet controlled gestational diabetes mellitus (GDM) in third trimester Use to test blood sugars 4 times daily (fasting, 1 hour after breakfast, lunch, and dinner) 1 Kit 4 03/15/20 24 Discontinu ed(Medicat ion List Clean Up) OneTouch Delica Lancets 30GIndications:D iet controlled gestational diabetes mellitus (GDM) in third trimester Use to test blood sugars 4 times daily (fasting, 1 hour after breakfast, lunch, and dinner) 200 Each 6 4 03/15/20 Discontinu ed(Medicat ion List Clean Up) OneToaddie Giovannyghulam In Vitro Strip (Glucose Blood)Indication s:Diet controlled gestational diabetes mellitus (GDM) in third trimester Use to test blood sugars 4 times daily (fasting, 1 hour after breakfast, lunch, and dinner) 125 Strip 6 4 03/15/20 Discontinu ed(Medicat ion List Clean Up) documented as of this encounter (statuses as of 03/15/2024) Active Problems Problem Noted Date Diagnosed Date [...] blood sugars each week for MFM review 12/06/20230410-ITK-jbqejpyv 3 fasting blood sugars (1 elevated) and 4 post prandial values (1 elevated). Messaged to be consistent with testing four times daily and reporting. Review again next week 12/13/20238993-DPL-rwvana 12/20/23: RPM reviewed; Stable 12/27/20230765-UQV-cejtji. Multiple missed readings. Sent message asking her to be consistent with testing and reporting 01/03/20243270-SXB-mxczjh 01/10/20240602-VMD-iijemlenn via raquel and messaging. Stable. 01/17/20241440-KAC-blgkzxdvn via raquel and messaging. Overall stable (rare elevation) 01/24/20244062-COY-msltnnqn fasting blood sugars. Maternal medicine nurse practitioners to review 01/24/24: RPM reviewed; noted as above. Recommend bedtime snack and fasting no longer than 8-10 hour overnight. Will continue to monitor. May need bedtime insulin next week. Msg sent to [facility] PARs to schedule adapt visit for sometime [...] Recommend nutrition consult with RDN (Registered Dietitian Dock Guard). Lifestyle changes are also indicated including optimizing [...] as of this encounter (statuses as of 03/15/2024) Immunizations Name Administration Dates Next Due TDAP, Age 7 and older, IM (Adacel) 11/08/2023 documented as of this encounter Social History Tobacco Use Types Packs/Day Years Used Date Smoking Tobacco: Never Smokeless Tobacco: Never Alcohol Use Standard Drinks/Week Comments Never 0 (1 standard drink = 0.6 oz pur e alcohol) [place] Depression Scale Answer Date Recorded [place] Depression Scale Total 14 02/14/2024 The thought of harming myself has occurred to me . Never 02/14/2024 Comments No Sex and Gender Information Value Date Recorded Sex Assigned at Not on file Legal Sex Female 10:20 PM EDT Gender Identity Not on file Sexual Orientation Not on file documented as of this encounter Miscellaneous Notes * Telephone Encounter - Anuradha Hopper RN - 03/15/2024 12:25 PM EST Pt returned call. Reviewed approved standard medical leave of 6 weeks with pt. Pt reports understanding. * Telephone Encounter - Yulia Morrell RN - 03/15/2024 11:46 AM EST left message for patient to call office * Telephone Encounter - Natty Parr OSA - 03/15/2024 11:11 AM EST Patient is inquiring about the about of time listed on the leave. She was expecting it to say she needed more time off than the original 6 weeks. I explained to her that 6 weeks is the normal but that I would send over and have someone review and reach out. Please assist patient. * Telephone Encounter - Stacie Rodriguez CMA - 03/14/2024 3:16 PM EST FMLA papers signed, faxed and placed in triage for patient to crab picker documented in this encounter Plan of Treatment Upcoming Encounters Date Type Department Care Team (Late st Contact Info) Description 03/29/2024 3:15 PM EST Office Visit Gynecology/Obstetrics Flavio Tejada [address] [place] [address] Stephen Mclaughlin MD [address] [address] Health Maintenance Due Date Last Done Comments [...]
--- OUTSIDE RECORDS SUMMARY | 2024-05-23 10:35 | External Medical Summary | Summary of Care ---
Author Name Unknown Organization [facility] Address [address] [place] [address] Phone [phone] Care Team Providers Care Commercial Credit Analyst Name Role Phone Unavailable Primary Care Provider Unavailabl e Encounter Details Date Type Department Care Team (Late st Contact Info) Description 03/06/2024 Telephone Gynecology/Obstetrics Flavio Tejada [address] [place] [address] Nancy Girard CRNP [address] [facility] [address] Allergies No known active allergiesdocumented as of this encounter (statuses as of 03/06/2024) Medications 6.75-0.2 MG Oral Tablet Take by [...] as of this encounter (statuses as of 03/06/2024) Active Problems Problem Noted Date Diagnosed Date [...] blood sugars each week for MFM review 12/06/20235301-FFP-xzwrsejy 3 fasting blood sugars (1 elevated) and 4 post prandial values (1 elevated). Messaged to be consistent with testing four times daily and reporting. Review again next week 12/13/20238807-IPU-bsdhgm 12/20/23: RPM reviewed; Stable 12/27/20236629-SSZ-xcoxsw. Multiple missed readings. Sent message asking her to be consistent with testing and reporting 01/03/20240674-DGZ-xcmrre 01/10/20245383-GPW-iqfylegrf via raquel and messaging. Stable. 01/17/20247101-ZRB-kzohxydqc via raquel and messaging. Overall stable (rare elevation) 01/24/20242928-PYO-gkzhkquq fasting blood sugars. Maternal medicine nurse practitioners [...] Recommend nutrition consult with RDN (Registered Dietitian Photo Manager). Lifestyle changes are also indicated including optimizing [...] as of this encounter (statuses as of 03/06/2024) Immunizations Name Administration Dates Next Due TDAP, Age 7 and older, IM (Adacel) 11/08/2023 documented as of this encounter Social History Tobacco Use Types Packs/Day Years Used Date Smoking Tobacco: Never Smokeless Tobacco: Never Alcohol Use Standard Drinks/Week Comments Never 0 (1 standard drink = 0.6 oz pur e alcohol) [place] Depression Scale Answer Date Recorded [place] Depression Scale Total 14 02/14/2024 The thought of harming myself has occurred to me . Never 02/14/2024 Comments No Sex and Gender Information Value Date Recorded Sex Assigned at Not on file Legal Sex Female 10:20 PM EDT Gender Identity Not on file Sexual Orientation Not on file documented as of this encounter Miscellaneous Notes * Telephone Encounter - Ijeoma Tejeda LPN - 03/06/2024 4:23 PM EST Patient returned call. Notified Nancy is now gone for the day. Asked if there was anything we could help her with and she said "No" * Telephone Encounter - Nancy Girard CRNP - 03/06/2024 3:43 PM EST Call to pt, no answer. LM on machine. * Telephone Encounter - Nova Almodovar RN - 03/06/2024 2:26 PM EST Post Patient calling in requesting to speak to Nancy directly. Advised patient that Nancy is with other patients right now, and asked if there was something that I can help her with. Patient Refused to discuss her concern with me and continued to ask to speak to Nancy directly. I advised again that Nancy is not available at the moment and I can get a message to her but I do not know when she will be able to call her. She then stated "ill just call back" and hung up. I am not sure if you havetime to call patient, she was not willing to speak to nurses. Sending as FYI documented in this encounter Plan of Treatment Upcoming Encounters Date Type Department Care Team (Late st Contact Info) Description 03/15/2024 10:30 AM EST Office Visit Gynecology/Obstetrics [facility] [address] [place] [address] Stephen Mclaughlin MD [address] [address] [address] Health Maintenance Due Date Last Done Comments [...]
--- OUTSIDE RECORDS SUMMARY | 2024-05-23 10:35 | External Medical Summary | Summary of Care ---
Author Name Unknown Organization [facility] Address [address] [place] [address] Phone [phone] Care Team Providers Care Embossing Machine Tender Name Role Phone Unavailable Primary Care Provider Unavailabl e Reason for Visit * Reason Comments Blood Pressure Check Encounter Details Date Type Department Care Team (Late st Contact Info) Description 02/12/2024 1:00 PM EST Immunization/I njection Gynecology/Obstetric s [facility] 132 [facility] [place] [address] Gw, Nurse Obgyn Injection 132 [facility] [place] [address] PIH ( induced hypertension)* Allergies No known active allergiesdocumented as of this encounter (statuses as of 02/12/2024) Medications 6.75-0.2 MG Oral Tablet Take by mouth. Active TapRush Verio Flex System w/Device KitIndications:D iet controlled [...] and dinner) 200 Each 6 11/15/2023 Active MedicinaTouch Verio In Vitro Strip (Glucose Blood)Indication s:Diet [...] as of this encounter (statuses as of 02/12/2024) Active Problems Problem Noted Date Diagnosed Date [...] blood sugars each week for MFM review 12/06/20238665-NAF-fmzupjfm 3 fasting blood sugars (1 elevated) and 4 post prandial values (1 elevated). Messaged to be consistent with testing four times daily and reporting. Review again next week 12/13/20231387-IOL-kxfhcw 12/20/23: RPM reviewed; Stable 12/27/20232853-QOT-byhlws. Multiple missed readings. Sent message asking her to be consistent with testing and reporting 01/03/20241242-ANI-xjqvpw 01/10/20249567-YEA-utgdebfwa via raquel and messaging. Stable. 01/17/20246965-XOW-wbrekozts via raquel and messaging. Overall stable (rare elevation) 01/24/20242544-FXS-uhnatqut fasting blood sugars. Maternal medicine nurse practitioners to review 01/24/24: RPM reviewed; noted as above. Recommend bedtime snack and fasting no longer than 8-10 hour overnight. Will continue to monitor. May need bedtime insulin next week. Msg sent to [facility] to schedule [...] Recommend nutrition consult with RDN (Registered Dietitian Jalousies Installer). Lifestyle changes are also indicated including optimizing [...] as of this encounter (statuses as of 02/12/2024) Immunizations Name Administration Dates Next Due TDAP, Age 7 and older, IM (Adacel) 11/08/2023 documented as of this encounter Social History Tobacco Use Types Packs/Day Years Used Date Smoking Tobacco: Never Smokeless Tobacco: Never Alcohol Use Standard Drinks/Week Comments Never 0 (1 standard drink = 0.6 oz pur e alcohol) [place] Depression Scale Answer Date Recorded [place] Depression Scale Total 6 07/19/2023 The thought of harming myself has occurred to me . Never 07/19/2023 Comments No Sex and Gender Information Value Date Recorded Sex Assigned at Not on file Legal Sex Female 10:20 PM EDT Gender Identity Not on file Sexual Orientation Not on file documented as of this encounter Last Filed Vital Signs Vital Sign Reading Time Taken Comments Blood Pressure 120/78 02/12/2024 1:38 PM EST Pulse - - Temperature - - Respiratory Rate - - Oxygen Saturation - - Inhaled Oxygen Concentration - - Weight - - Height - - Body Mass Index - - documented in this encounter Nursing Notes * Yulia Morrell RN - 02/12/2024 1:53 PM EST After reviewing meds with Dr. Adames, she states that pt was to be taking 2 bp meds. Procardia once a day and labetalol three times a day along with keflex tid. Pt thinks that what she may be taking. She will go home and call office with names of meds. Per Dr. Adames, if pt is taking labetalol tid, can decrease to twice a day and continues keflex and procardia. Should follow up in one week for bp check. Pt aware and will call me once home. * Yulia Morrell RN - 02/12/2024 1:32 PM EST Pt delivered on 01/28. D/c on labetalol 200 mg once daily. Denies any headaches or other concerns. documented in this encounter Plan of Treatment Upcoming Encounters Date Type Department Care Team (Late st Contact Info) Description 02/20/2024 11:45 AM EST Office Visit Gynecology/Obstetrics [facility] [address] [place] [address] Stephen Mclaughlin MD [address] [place] [address] 02/21/2024 11:30 AM EST Telemedicine Gynecology/Obstetrics [facility] [address] [place] [address] Nancy Girard CRNP [address] [place] [address] 03/15/2024 10:30 AM EST Office Visit Gynecology/Obstetrics [facility] [address] [place] [address] Stephen Mclaughlin MD [address] [place] [address] Scheduled Orders Name Type Priority Associated Diagnoses Orde r Schedule URINALYSIS, POINT OF CARE (ENTER/EDIT) Point of Care Testing Routine PIH ( induced hypertension) Ordered: 02/12/2024 Health Maintenance Due Date Last Done Comments [...] Procedure Name Priority Date/Time Associated Diagnosis Comments URINALYSIS, POINT OF CARE DAVID 02/12/2024 1:35 PM EST documented in this encounter Results * (ABNORMAL) URINALYSIS, POINT OF CARE (02/12/2024 1:35 PM EST) Color, Urine Yellow Light Yellow, Yellow 02/12/2024 1:38 PM EST [facility] [place] [facility] Clarity, Urine Clear Clear 02/12/2024 1:38 PM EST [facility] [place] [facility] Glucose, Urine Negative Negative mg/dL 02/12/2024 1:38 PM EST [facility] [place] 57-10 Bilirubin, Urine Negative Negative 02/12/2024 1:38 PM EST [facility] [place] 57[facility]10 Ketone, Urine Negative Negative mg/dL 02/12/2024 1:38 PM EST [facility] [place] [facility]10 Specific [place], Urine <=1.005 1.003 - 1.030 02/12/2024 1:38 PM EST [facility] [place] [facility]10 Blood, Urine Negative Negative 02/12/2024 1:38 PM EST [facility] [place] 57[facility]10 pH, Urine 5.0 5.0, 5.5, 6.0, 6.5, 7.0, 7.5 units 02/12/2024 1:38 PM EST [facility] [place] [facility]10 Protein, Urine Negative Negative mg/dL 02/12/2024 1:38 PM EST [facility] [place] [facility] Urobilinogen, Urine 0.2 0.2, 1.0 mg/dL 02/12/2024 1:38 PM EST [facility] [place] [facility]10 Nitrite, Urine Negative Negative 02/12/2024 1:38 PM EST [facility] [place] 57[facility]10 Esterase, Urine Small(A) Negative 02/12/2024 1:38 PM EST [facility] [place] [facility]10 Urine 02/12/2024 1:35 PM EST 02/12/2024 1:38 PM EST us Nurse Obgyn Injection Gw LAB POINT OF CA RE TEST DOCKED DEVICE UNSOLICITED RESULTS Final Result [facility] [place] [facility]10 [address] [facility] [place] [address] documented in this encounter Visit Diagnoses Diagnosis Diet controlled gestational diabetes mellitus (GDM) in third trimester- Primary Supervision of high risk , antepartum, third trimester 30 weeks gestation of state, incidental Diet controlled gestational diabetes mellitus (GDM) in third trimester- Primary Ultrasound for screening for growth restriction screening for growth retardation using ultrasonics 35 weeks gestation of state, incidental PIH ( induced hypertension)- Primary Transient hypertension of , unspecified as to episode of care documented in this encounter
--- OUTSIDE RECORDS SUMMARY | 2024-05-23 10:35 | External Medical Summary | Summary of Care ---
Author Name Unknown Organization [facility] Address [address] [place] [address] Phone [phone] Care Team Providers Care Corporate Responsibility Officer Name Role Phone Unavailable Primary Care Provider Unavailabl e Encounter Details Date Type Department Care Team (Late st Contact Info) Description 03/15/2024 Telephone Gynecology/Obstetrics Flavio Tejada [address] [facility] [place] [address] Nancy Girard CRNP [address] [facility] [address] Allergies No known active allergiesdocumented as of this encounter (statuses as of 04/05/2024) Medications 6.75-0.2 MG Oral Tablet Take by mouth. Active Labetalol HCl 200 MG Oral Tablet (Normodyne) Take 1 Tablet by mouth once. 4 Active Cephalexin 500 MG Oral Capsule (Keflex) 1 Capsule. 4 Active Norethindrone 0.35 MG Oral TabletIndications: Encounter for initial prescription of contraceptive pills Take 1 Tablet by mouth in the morning. 84 Tablet 3 03/15/2024 11:31 AM EST 4 Active documented as of this encounter (statuses as of 04/05/2024) Active Problems Problem Noted Date Diagnosed Date [...] MFM ADAPT consult complete. Enrolled in [facility]. Instructions provided to report blood sugars each week for MFM review 12/06/20235578-DUC-drraediq 3 fasting blood sugars (1 elevated) and 4 post prandial values (1 elevated). Messaged to be consistent with testing four times daily and reporting. Review again next week 12/13/20239511-AXK-krvyoe 12/20/23: RPM reviewed; Stable 12/27/20232241-VTL-rshrdk. Multiple missed readings. Sent message asking her to be consistent with testing and reporting 01/03/20243495-MGB-phjefl 01/10/20240463-VEH-znderkdhy via raquel and messaging. Stable. 01/17/20241878-AOJ-kagcnipda via raquel and messaging. Overall stable (rare elevation) 01/24/20242562-YDY-qecadlpg fasting blood sugars. Maternal medicine nurse practitioners to review 01/24/24: RPM reviewed; noted as above. Recommend bedtime snack and fasting no longer than 8-10 hour overnight. Will continue to monitor. May need bedtime insulin next week. Msg sent to [facility] to schedule adapt visit for sometime [...] nutrition consult with RDN (Registered Dietitian Business Performance Manager). Lifestyle changes are also indicated including [...] as of this encounter (statuses as of 04/05/2024) Immunizations Name Administration Dates Next Due TDAP, Age 7 and older, IM (Adacel) 11/08/2023 documented as of this encounter Social History Tobacco Use Types Packs/Day Years Used Date Smoking Tobacco: Never Smokeless Tobacco: Never Alcohol Use Standard Drinks/Week Comments Never 0 (1 standard drink = 0.6 oz pur e alcohol) [place] Depression Scale Answer Date Recorded [place] Depression Scale Total 14 02/14/2024 The thought of harming myself has occurred to me . Never 02/14/2024 Comments No Sex and Gender Information Value Date Recorded Sex Assigned at Not on file Legal Sex Female 10:20 PM EDT Gender Identity Not on file Sexual Orientation Not on file documented as of this encounter Plan of Treatment Health Maintenance [...]
--- OUTSIDE RECORDS SUMMARY | 2024-05-23 10:35 | External Medical Summary | Summary of Care ---
Author Name Unknown Organization [facility] Address [address] [place] [address] Phone [phone] Care Team Providers Care Dipping Machine Operator Name Role Phone Unavailable Primary Care Provider Unavailabl e Reason for Visit * Reason Onset Date Comments 03/14/2024 Encounter Details Date Type Department Care Team (Late st Contact Info) Description 03/14/2024 Telephone Gynecology/Obstetrics Flavio Tejada [address] [facility] [place] [address] Nancy Girard CRNP [address] [facility] [address] Allergies No known active allergiesdocumented as of [...] blood sugars each week for MFM review 12/06/20233363-ZLS-aaeczsha 3 fasting blood sugars (1 elevated) and 4 post prandial values (1 elevated). Messaged to be consistent with testing four times daily and reporting. Review again next week 12/13/20236506-NUF-anrtwp 12/20/23: RPM reviewed; Stable 12/27/20238253-WLR-iqwxzx. Multiple missed readings. Sent message asking her to be consistent with testing and reporting 01/03/20244107-CWU-ydgjrk 01/10/20240631-WXU-gletclaph via raquel and messaging. Stable. 01/17/20245605-REM-nqdgrfigr via raquel and messaging. Overall stable (rare elevation) 01/24/20245622-ADF-plrvnjyz fasting blood sugars. Maternal medicine nurse practitioners to review 01/24/24: RPM reviewed; noted as above. Recommend bedtime snack and fasting no longer than 8-10 hour overnight. Will continue to monitor. May need bedtime insulin next week. Msg sent to [facility] to schedule adapt visit for sometime [...] Recommend nutrition consult with RDN (Registered Dietitian Securities Compliance Examiner). Lifestyle changes are also indicated including optimizing [...] drink = 0.6 oz pur e alcohol) [place] Depression Scale Answer Date Recorded [place] Depression Scale Total 14 02/14/2024 The thought of harming myself has occurred to me . Never 02/14/2024 Comments No Sex and Gender Information Value Date Recorded Sex Assigned at Not on file Legal Sex Female 10:20 PM EDT Gender Identity Not on file Sexual Orientation Not on file documented as of this encounter Miscellaneous Notes * Telephone Encounter - Yulia Morrell RN [...] Rodriguez CMA - 03/14/2024 3:16 PM EST [facility] papers signed, faxed and placed in triage for patient to chicken picker documented in this encounter Plan of Treatment Upcoming Encounters Date Type Department Care Team (Late st Contact Info) Description 03/29/2024 3:15 PM EST Office Visit Gynecology/Obstetrics Hashoshana Tejada [address] [place] [address] Stephen Mclaughlin MD [address] [place] [address] Health Maintenance Due Date Last Done Comments [...]
--- OUTSIDE RECORDS SUMMARY | 2024-05-23 10:35 | External Medical Summary | Summary of Care ---
Author Name Unknown Organization [facility] Address [address] [place] [address] Phone [phone] Care Team Providers Care Vice President Of Contracts Name Role Phone Unavailable Primary Care Provider Unavailabl e Encounter Details Date Type Department Care Team (Late st Contact Info) Description 03/06/2024 Telephone Gynecology/Obstetrics Flavio Tejada [address] [place] [address] Nancy Girard CRNP [address] [facility] [address] Allergies No known active allergiesdocumented as of [...] blood sugars each week for MFM review 12/06/20233185-CJN-nodwdzpw 3 fasting blood sugars (1 elevated) and 4 post prandial values (1 elevated). Messaged to be consistent with testing four times daily and reporting. Review again next week 12/13/20237084-UFK-tmihzp 12/20/23: RPM reviewed; Stable 12/27/20231723-XNV-oqxzan. Multiple missed readings. Sent message asking her to be consistent with testing and reporting 01/03/20245231-OOR-akehof 01/10/20249815-AGO-amoovuvyy via raquel and messaging. Stable. 01/17/20246576-ITV-jefalftly via raquel and messaging. Overall stable (rare elevation) 01/24/20249069-MHX-psloluqe fasting blood sugars. Maternal medicine nurse practitioners to review 01/24/24: RPM reviewed; noted as above. Recommend bedtime snack and fasting no longer than 8-10 hour overnight. Will continue to monitor. May need bedtime insulin next week. Msg sent to [facility]s to schedule adapt visit for sometime [...] Recommend nutrition consult with RDN (Registered Dietitian Bench Assembler Electrical). Lifestyle changes are also indicated including optimizing [...] drink = 0.6 oz pur e alcohol) [place] Depression Scale Answer Date Recorded [place] Depression Scale Total 14 02/14/2024 The thought [...] 03/15/2024 10:30 AM EST Office Visit Gynecology/Obstetrics [facility] [address] [place] [address] Stephen Mclaughlin MD [address] [place] [address] Health Maintenance Due Date Last Done Comments Depression Screening 2006 Hepatitis B Vaccine (1 of - 19+ 3-dose series) 2013 COVID-19 Vaccine [...]
--- OUTSIDE RECORDS SUMMARY | 2024-05-23 10:35 | External Medical Summary | Summary of Care ---
Author Name Unknown Organization [facility] Address [address] [place] [address] Phone [phone] Care Team Providers Care Nursing Home Administrator Name Role Phone Unavailable Primary Care Provider Unavailabl e Encounter Details Date Type Department Care Team (Late st Contact Info) Description 03/06/2024 Telephone Gynecology/Obstetrics [facility] [address] [place] [address] Nancy Girard CRNP [address] [facility] [address] Allergies No known active allergiesdocumented as of [...] blood sugars each week for MFM review 12/06/20238795-NRK-thlgkhhp 3 fasting blood sugars (1 elevated) and 4 post prandial values (1 elevated). Messaged to be consistent with testing four times daily and reporting. Review again next week 12/13/20232176-LRK-rklknw 12/20/23: RPM reviewed; Stable 12/27/20230780-RUC-jbcwce. Multiple missed readings. Sent message asking her to be consistent with testing and reporting 01/03/20249299-DSE-jaxeqt 01/10/20241218-MCH-psagdmxzj via raquel and messaging. Stable. 01/17/20247731-TPV-ehwtgoanl via raquel and messaging. Overall stable (rare elevation) 01/24/20243036-DYU-kbuttidv fasting blood sugars. Maternal medicine nurse practitioners to review 01/24/24: RPM reviewed; noted as above. Recommend bedtime snack and fasting no longer than 8-10 hour overnight. Will continue to monitor. May need bedtime insulin next week. Msg sent to [facility] to schedule adapt visit for sometime [...] Recommend nutrition consult with RDN (Registered Dietitian Touch Up Painter Hand). Lifestyle changes are also indicated including optimizing [...] drink = 0.6 oz pur e alcohol) [place] Depression Scale Answer Date Recorded [place] Depression Scale Total 14 02/14/2024 The thought [...] 03/15/2024 10:30 AM EST Office Visit Gynecology/Obstetrics [facility] [address] [place] [address] Stephen Mclaughlin MD [address] [place] [address] [address] Health Maintenance Due Date Last Done Comments [...]
--- OUTSIDE RECORDS SUMMARY | 2024-05-23 10:35 | External Medical Summary | Summary of Care ---
Author Name Unknown Organization [facility] Address [address] [place] [address] Phone [phone] Care Team Providers Care Circulation Man Name Role Phone Unavailable Primary Care Provider Unavailabl e Reason for Visit * Reason Comments Encounter Details Date Type Department Care Team (Latest Contact Info) Description 03/15/2024 10:30 AM EST Office Visit Gynecology/Obstetric s Flavio Te[facility]ada [address] [facility] [place] [address] Stephen Mclaughlin MD [address] [facility] [place] [address] Routine follow-up*; Encounter for initial prescription of contraceptive pills Allergies No known active allergiesdocumented as of [...] mouth in the morning. 84 Tablet 3 4 Active OneTouch Verio Flex System w/Device KitIndications: t controlled gestational diabetes mellitus (GDM) in third trimester Use to test blood sugars 4 times daily (fasting, 1 hour after breakfast, lunch, and dinner) 1 Kit 4 12/27/20 24 Discontinu ed(Medicat ion List Clean Up) OneTouch Delica Lancets 30GIndications: t controlled gestational diabetes mellitus (GDM) in third trimester Use to test blood sugars 4 times daily (fasting, 1 hour after breakfast, lunch, and dinner) 200 Each 6 4 03/15/20 Discontinu ed(Medicat ion List Clean Up) OneTouch Verio In Vitro Strip (Glucose Blood)Indications: [...] blood sugars each week for MFM review 12/06/20236597-VFS-atmvaiac 3 fasting blood sugars (1 elevated) and 4 post prandial values (1 elevated). Messaged to be consistent with testing four times daily and reporting. Review again next week 12/13/20236329-HZL-hupjbe 12/20/23: RPM reviewed; Stable 12/27/20234830-PVT-hctfss. Multiple missed readings. Sent message asking her to be consistent with testing and reporting 01/03/20242520-LZK-amnuxy 01/10/20248037-CKV-migdyhxle via raquel and messaging. Stable. 01/17/20249064-CDU-dffqhjscf via raquel and messaging. Overall stable (rare elevation) 01/24/20241042-FCL-fuhajrau fasting blood sugars. Maternal medicine nurse practitioners to review 01/24/24: RPM reviewed; noted as above. Recommend bedtime snack and fasting no longer than 8-10 hour overnight. Will continue to monitor. May need bedtime insulin next week. Msg sent to [facility] [place] [place] [facility] to schedule adapt visit for sometime [...] Recommend nutrition consult with RDN (Registered Dietitian Adjuster). Lifestyle changes are also indicated including [...] drink = 0.6 oz pur e alcohol) [place] Depression Scale Answer Date Recorded [place] Depression Scale Total 14 02/14/2024 The thought [...] Sign Reading Time Taken Comments Blood Pressure 142/86 03/15/2024 10:36 AM EST Pulse - - Temperature - - Respiratory Rate - - Oxygen Saturation - - Inhaled Oxygen Concentration - - Weight 89.4 kg (197 lb) 03/15/2024 10:36 AM EST Height 170.2 cm (5' 7") 03/15/2024 10:36 AM EST Body Mass Index 30.85 03/15/2024 10:36 AM EST documented in this encounter Progress Notes * Stephen Mclaughlin MD - 03/15/2024 10:57 AM EST Patient is S/P VD and doing well Here for eval Examination done and PP conmponents in chart filled out including PP depression Pap not indicated : Yes Discussed options, and patient's contraception plan is MicroNor Plan: Norethindrone 0.35 mg or tabs Sig:Take 1 tablet by mouth in the morning. Stephen Mclaughlin MD documented in this encounter Plan of Treatment Upcoming Encounters Date Type Department Care Team (Late st Contact Info) Description 03/29/2024 3:15 PM EST Office Visit Gynecology/Obstetrics [address] [place] [address] Stephen Mclaughlin MD [address] [place] [address] Health Maintenance Due Date Last Done Comments [...] ultrasonics 35 weeks gestation of state, incidental Routine follow-up- Primary Encounter for initial prescription of contraceptive pills General counseling for prescription of oral contraceptives documented in this encounter
--- OUTSIDE RECORDS SUMMARY | 2024-05-23 10:35 | External Medical Summary | Summary of Care ---
Author Name Unknown Organization [facility] Address [address] [place] [address] Phone [phone] Care Team Providers Care Mixer Driver Name Role Phone Unavailable Primary Care Provider Unavailabl e Reason for Visit * Reason Comments Patient'S Librarian Return Encounter Details Date Type Department Care Team (Late st Contact Info) Description 02/20/2024 11:45 AM EST Office Visit Gynecology/Obstetric s Flavio Platas [address] [facility] [place] [address] Stephen Mclaughlin MD [address] [facility] [place] [address] Routine follow-up* Allergies No known active allergiesdocumented as of this encounter (statuses as of 02/20/2024) Medications 6.75-0.2 MG Oral Tablet Take by mouth. Active [employer] Sciences Oncology Verio Flex System w/Device KitIndications:D iet controlled [...] and dinner) 200 Each 6 11/15/2023 Active Primo RoundTouch Verio In Vitro Strip (Glucose Blood)Indication s:Diet [...] as of this encounter (statuses as of 02/20/2024) Active Problems Problem Noted Date Diagnosed Date [...] blood sugars each week for MFM review 12/06/20237506-HRQ-onenimsu 3 fasting blood sugars (1 elevated) and 4 post prandial values (1 elevated). Messaged to be consistent with testing four times daily and reporting. Review again next week 12/13/20230761-ZVI-uoubih 12/20/23: RPM reviewed; Stable 12/27/20238144-DHH-xahkrv. Multiple missed readings. Sent message asking her to be consistent with testing and reporting 01/03/20245029-DVH-hmswwx 01/10/20240060-YEO-uwcqyxxro via raquel and messaging. Stable. 01/17/[id number]-VOA-jawqnhwvs via raquel and messaging. Overall stable (rare elevation) 01/24/20245777-KBY-fwshgdkp fasting blood sugars. Maternal medicine nurse practitioners [...] Recommend nutrition consult with RDN (Registered Dietitian Forest Management Professor). Lifestyle changes are also indicated including optimizing [...] as of this encounter (statuses as of 02/20/2024) Immunizations Name Administration Dates Next Due TDAP, Age 7 and older, IM (Adacel) 11/08/2023 documented as of this encounter Social History Tobacco Use Types Packs/Day Years Used Date Smoking Tobacco: Never Smokeless Tobacco: Never Alcohol Use Standard Drinks/Week Comments Never 0 (1 standard drink = 0.6 oz pur e alcohol) [place] Depression Scale Answer Date Recorded [place] Depression Scale Total 14 02/14/2024 The thought [...] Sign Reading Time Taken Comments Blood Pressure 124/78 02/20/2024 11:39 AM EST Pulse - - Temperature - - Respiratory Rate - - Oxygen Saturation - - Inhaled Oxygen Concentration - - Weight - - Height 170.2 cm (5' 7") 02/20/2024 11:39 AM EST Body Mass Index - - documented in this encounter Progress Notes * Stephen Mclaughlin MD - 02/20/2024 11:53 AM EST Pt is s/p VD 3 weeks ago and doing well S/p gestational HTN on Labetalol and Nifedipine and doing well BP 124/78 | Ht 1.702 m (5' 7") | BMI 32.98 kg/m | BSA 2.12 m Denies suicidal ideations Reports needing more sleep Plan Continue BP meds documented in this encounter Nursing Notes * Randa Mujica LPN - 02/20/2024 11:40 AM EST Pt is here for a BP check Pt also had a high ed[facility] at [facility] yesterday pt denies any concerns and thomas she just need sleep. I asked pt if she would be ok if I put in a womens behavioral health referral pt declined and said she is ok documented in this encounter Plan of Treatment Upcoming Encounters Date Type Department Care Team (Late st Contact Info) Description 02/21/2024 11:30 AM EST Telemedicine Gynecology/Obstetrics [address] [place] [address] Nancy Girard CRNP [address] [place] [address] 03/15/2024 10:30 AM EST Office Visit Gynecology/Obstetrics Flavio Tejada [address] [place] [address] Stephen Mclaughlin MD [address] [place] [address] Health Maintenance Due Date Last Done Comments [...] gestation of state, incidental Routine follow-up- Primary documented in this encounter
--- OUTSIDE RECORDS SUMMARY | 2024-05-23 10:35 | External Medical Summary | Summary of Care ---
Author Name Unknown Organization [facility] Address [address] [place] [address] Phone [phone] Care Team Providers Care Customer Sales Advisor Name Role Phone Unavailable Primary Care Provider Unavailabl e Reason for Visit * Reason Comments Return Visit Encounter Details Date Type Department Care Team (Late st Contact Info) Description 01/25/2024 10:30 AM EST Office Visit Gynecology/Obstetric s Flavio Tejada [address] [place] [address] Casandra Rogers PA-C [address] [place] [address] Supervision of high risk , antepartum*; Diet [...] blood sugars each week for MFM review 12/06/20237344-XWS-gyfpriwk 3 fasting blood sugars (1 elevated) and 4 post prandial values (1 elevated). Messaged to be consistent with testing four times daily and reporting. Review again next week 12/13/20230580-LNR-llnsdq 12/20/23: RPM reviewed; Stable 12/27/20239211-AIG-htxfmv. Multiple missed readings. Sent message asking her to be consistent with testing and reporting 01/03/20241305-SVZ-pzqeqi 01/10/20249553-UGS-ykpnnmvbg via raquel and messaging. Stable. 01/17/[id number]-LFG-jldvvcfhb via raquel and messaging. Overall stable (rare elevation) 01/24/20240328-ZUN-jwxcsmma fasting blood sugars. Maternal medicine nurse practitioners to review 01/24/24: RPM reviewed; noted as above. Recommend bedtime snack and fasting no longer than 8-10 hour overnight. Will continue to monitor. May need bedtime insulin next week. Msg sent to [facility] to schedule adapt visit for sometime [...] Recommend nutrition consult with RDN (Registered Dietitian Manager Speech). Lifestyle changes are also indicated including optimizing [...] of high risk , antepartum 0 07/19/2023 Comments Yes documented as of this encounter (statuses as of 02/14/2024) Immunizations Name Administration Dates Next Due TDAP, Age 7 and older, IM (Adacel) 11/08/2023 documented as of this encounter Social History Tobacco Use Types Packs/Day Years Used Date Smoking Tobacco: Never Smokeless Tobacco: Never Alcohol Use Standard Drinks/Week Comments Never 0 (1 standard drink = 0.6 oz pur e alcohol) [place] Depression Scale Answer Date Recorded [place] Depression Scale Total 6 07/19/2023 The thought of harming myself has occurred to me . 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 Name of livestock slaughterer: Stacie Rodriguez CMA. ASSESSMENT/PLAN Supervision of high [...] 02/20/2024 11:45 AM EST Office Visit Gynecology/Obstetrics [facility] [address] [place] [address] Stephen Mclaughlin MD [address] [place] [address] 02/21/2024 11:30 AM EST Telemedicine Gynecology/Obstetrics [facility] [address] [place] [address] Nancy Girard CRNP [address] [place] [address] 03/15/2024 10:30 AM EST Office Visit Gynecology/Obstetrics [facility] [address] [place] [address] Stephen Mclaughlin MD [address] [place] [address] Health Maintenance Due Date Last Done Comments [...] ultrasonics 35 weeks gestation of state, incidental Supervision of high risk , antepartum- Primary Diet controlled gestational diabetes mellitus (GDM) in third trimester documented in this encounter
--- OUTSIDE RECORDS SUMMARY | 2024-05-23 10:35 | External Medical Summary | Summary of Care ---
Author Name Unknown Organization [facility] Address [address] [place] [address] Phone [phone] Care Team Providers Care Wood Machinist Name Role Phone Unavailable Primary Care Provider Unavailabl e Reason for Visit * Reason Onset Date Comments 03/14/2024 Encounter Details Date Type Department Care Team (Late st Contact Info) Description 03/14/2024 Telephone Gynecology/Obstetrics Flavio Tejada [address] [facility] [place] [address] Nancy Girard CRNP [address] [facility] [address] Allergies No known active allergiesdocumented as of [...] blood sugars each week for MFM review 12/06/20237123-XEH-fygqoroo 3 fasting blood sugars (1 elevated) and 4 post prandial values (1 elevated). Messaged to be consistent with testing four times daily and reporting. Review again next week 12/13/20236251-NDD-gzgvmc 12/20/23: RPM reviewed; Stable 12/27/20237901-VQC-xkdumm. Multiple missed readings. Sent message asking her to be consistent with testing and reporting 01/03/20240053-KCD-uyckse 01/10/20245008-HOV-vqtspscbg via raquel and messaging. Stable. 01/17/20243836-ACV-cosepnojz via raquel and messaging. Overall stable (rare elevation) 01/24/20242197-NIQ-isstlfcg fasting blood sugars. Maternal medicine nurse practitioners to review 01/24/24: RPM reviewed; noted as above. Recommend bedtime snack and fasting no longer than 8-10 hour overnight. Will continue to monitor. May need bedtime insulin next week. Msg sent to [place] [facility] to schedule adapt visit for sometime [...] Recommend nutrition consult with RDN (Registered Dietitian Garbage Stoker). Lifestyle changes are also indicated including optimizing [...] drink = 0.6 oz pur e alcohol) [place] Depression Scale Answer Date Recorded [place] Depression Scale Total 14 02/14/2024 The thought [...] Rodriguez CMA - 03/14/2024 3:16 PM EST [place] papers signed, faxed and placed in triage for patient to berry picker documented in this encounter Plan of Treatment Upcoming Encounters Date Type Department Care Team (Late st Contact Info) Description 03/29/2024 3:15 PM EST Office Visit Gynecology/Obstetrics [facility] [address] [place] [address] Stephen Mclaughlin MD [address] [place] [address] [address] Health Maintenance Due Date Last Done Comments Depression Screening 2006 Hepatitis B Vaccine (1 of 3 - 19+ 3-dose series) 2013 COVID-19 Vaccine (1 - 2024-2 5 season) 2023 Influenza Vaccine (FLU shot) [...]
--- OUTSIDE RECORDS SUMMARY | 2024-05-23 10:35 | External Medical Summary | Summary of Care ---
Author Name Unknown Organization [facility] Address [address] [place] [address] Phone [phone] Care Team Providers Care Blind Lacer Name Role Phone Unavailable Primary Care Provider Unavailabl e Encounter Details Date Type Department Care Team (Late st Contact Info) Description 02/12/2024 Telephone [facility] [address] [place] [address] Zackery Rios MD [address] [facility] [place] [address] Allergies No known active allergiesdocumented as of [...] blood sugars each week for MFM review 12/06/20238016-DKT-flnyhzez 3 fasting blood sugars (1 elevated) and 4 post prandial values (1 elevated). Messaged to be consistent with testing four times daily and reporting. Review again next week 12/13/20239756-UBK-xctrud 12/20/23: RPM reviewed; Stable 12/27/20232971-XYS-rcrgoa. Multiple missed readings. Sent message asking her to be consistent with testing and reporting 01/03/20241071-IWL-hmvqpr 01/10/20247521-DFR-wujvnrokl via raquel and messaging. Stable. 01/17/20248903-EDU-ikjktrcbz via raquel and messaging. Overall stable (rare elevation) 01/24/20245722-YXD-gijzmebn fasting blood sugars. Maternal medicine nurse practitioners to review 01/24/24: RPM reviewed; noted as above. Recommend bedtime snack and fasting no longer than 8-10 hour overnight. Will continue to monitor. May need bedtime insulin next week. Msg sent to [facility] to schedule adapt visit for sometime [...] Recommend nutrition consult with RDN (Registered Dietitian Pattern Painter). Lifestyle changes are also indicated including optimizing [...] drink = 0.6 oz pur e alcohol) [place] Depression Scale Answer Date Recorded [place] Depression Scale Total 6 07/19/2023 The thought of harming myself has occurred to me . Never 07/19/2023 Comments No Sex and Gender Information Value Date Recorded Sex Assigned at Not on file Legal Sex Female 10:20 PM EDT Gender Identity Not on file Sexual Orientation Not on file documented as of this encounter Miscellaneous Notes * Telephone Encounter - Randa Mujica LPN - 02/12/2024 2:44 PM EST Pt called back saying she is taking her labetalol TID, procardia once in morning daily, keflex. I let pt know to decrease Labetalol to BID and continue to take her other meds as directed. Pt verbalized understanding. documented in this encounter Plan of Treatment Upcoming Encounters Date Type Department Care Team (Late st Contact Info) Description 02/20/2024 11:45 AM EST Office Visit Gynecology/Obstetrics [facility] [address] [place] [address] Stephen Mclaughlin MD [address] [place] [address] 02/21/2024 11:30 AM EST Telemedicine Gynecology/Obstetrics [facility] [address] [place] [address] Nancy Girard CRNP [address] [place] [address] 03/15/2024 10:30 AM EST Office Visit Gynecology/Obstetrics [facility] [address] [place] [address] Stephen Mclaughlin MD [address] [place] [address] Health Maintenance Due Date Last Done Comments [...]
--- OUTSIDE RECORDS SUMMARY | 2024-05-23 10:36 | External Medical Summary ---
Author Name Unknown Address Unknown Organization K0G[facility] [address] [facility] [address] Laboratory Report Ordering Provider Test Date Status NURSE,GW 02/12/2024 13:35:00 Final Observation Date Value Abnormality Reference (Units ) Status Color of Urine by Auto 02/12/2024 13:35:00 Yellow Light Yellow, Yellow Final Clarity, Urine 02/12/2024 13:35:00 Clear Clear Final Glucose [Mass/volume] in Urine by Automated test strip 02/12/2024 13:35:00 Negative Negative (mg/dL) Final Bilirubin.total [Presence] in Urine by Automated test strip 02/12/2024 13:35:00 Negative Negative Final Ketones [Mass/volume] in Urine by Automated test strip 02/12/2024 13:35:00 Negative Negative (mg/dL) Final Specific gravity, Urine 02/12/2024 13:35:00 <=1.005 1.003-1.030 Final Hemoglobin [Presence] in Urine by Automated test strip 02/12/2024 13:35:00 Negative Negative Final pH, Urine 02/12/2024 13:35:00 5.0 5.0, 5.5, 6.0, 6.5, 7.0, 7.5 (units) Final Protein [Mass/volume] in Urine by Automated test strip 02/12/2024 13:35:00 Negative Negative (mg/dL) Final Urobilinogen, Urine 02/12/2024 13:35:00 0.2 0.2, 1.0 (mg/dL) Final Nitrite [Presence] in Urine by Automated test strip 02/12/2024 13:35:00 Negative Negative Final Leukocyte esterase [Presence] in Urine by Automated test strip 02/12/2024 13:35:00 Small Abnormal Negative Final Performing Location [facility] [address] [place] [address]
--- OUTSIDE RECORDS SUMMARY | 2024-05-23 10:36 | External Medical Summary | Summary of Care ---
Author Name Unknown Organization [facility] Address [address] [place] [address] Phone [phone] Care Team Providers Care Child And Family Services Worker Name Role Phone Unavailable Primary Care Provider Unavailabl e Reason for Visit * Reason Comments Blood Pressure Check Encounter Details Date Type Department Care Team (Late st Contact Info) Description 02/12/2024 1:00 PM EST Immunization/I njection Gynecology/Obstetric s [facility] [address] [facility] [place] [address] Gw, Nurse Obgyn Injection [address] [facility] [place] [address] PIH ( induced hypertension)* Allergies No known active allergiesdocumented as of this encounter (statuses as of 02/12/2024) Medications 6.75-0.2 MG Oral Tablet Take by mouth. Active Jawbone Verio Flex System w/Device KitIndications:D iet controlled [...] and dinner) 200 Each 6 11/15/2023 Active HealcerionTouch Verio In Vitro Strip (Glucose Blood)Indication s:Diet [...] blood sugars each week for MFM review 12/06/20232562-LIZ-tbwftvcm 3 fasting blood sugars (1 elevated) and 4 post prandial values (1 elevated). Messaged to be consistent with testing four times daily and reporting. Review again next week 12/13/[id number]-NQG-qucudy 12/20/23: RPM reviewed; Stable 12/27/20233168-GZD-fpsvlt. Multiple missed readings. Sent message asking her to be consistent with testing and reporting 01/03/20243199-ZDJ-oshswm 01/10/20244140-WLG-bmreacxga via raquel and messaging. Stable. 01/17/[id number]-PYL-fvhpmhwlh via raquel and messaging. Overall stable (rare elevation) 01/24/20243858-QUD-umbqoixh fasting blood sugars. Maternal medicine nurse practitioners to review 01/24/24: RPM reviewed; noted as above. Recommend bedtime snack and fasting no longer than 8-10 hour overnight. Will continue to monitor. May need bedtime insulin next week. Msg sent to [facility] to schedule adapt visit for sometime [...] Recommend nutrition consult with RDN (Registered Dietitian Medicine Teacher). Lifestyle changes are also indicated including optimizing [...] drink = 0.6 oz pur e alcohol) [place] Depression Scale Answer Date Recorded [place] Depression Scale Total 6 07/19/2023 The thought [...] Description 02/21/2024 11:30 AM EST Telemedicine Gynecology/Obstetrics [facility] [address] [place] [address] Nancy Girard CRNP [address] [place] [address] 03/15/2024 10:30 AM EST Office Visit Gynecology/Obstetrics Flavio Tejada [address] [place] [address] Stephen Mclaughlin MD [address] [place] [address] Scheduled Orders Name Type Priority Associated Diagnoses [...] PM EST [facility] [place] [facility] Specific [place], Urine <=1.005 1.003 - 1.030 02/12/2024 1:38 [...] DEVICE UNSOLICITED RESULTS Final Result [facility] [place] [facility] [place] [address] documented in this encounter Visit Diagnoses Diagnosis [...]
[2024-05-23] MEDS: POT PHOSPHATE MONOBASIC W/ SOD TAB PO SCH (10:42)
[2024-05-23 11:02] LABS: Estimated Average Glucose 108 mg/dl; Hemoglobin A1C 5.4 % (4.5-5.6)
--- NOTE | 2024-05-23 14:35 | Hospitalist Progress Note ---
Date of Service May 23, 2024 Assessment & Plan (1) Sepsis: Plan Pt is a 29yo [id number] PMHx significant for recent delivery in Jan 2024 with course complicated by gestational DM and hypertension presenting with sepsis in the setting of mastitis and a possible UTI. Mastitis Possible UTI Possible bronchitis Pt 4 month old baby at home 3 day hx of right breast pain and soreness Tachycardic with leukocytosis and fevers on admission UA suggestive of infection Urine culture pending Blood Cx x 2 sets also pending Chest XRAY noting possible bronchitis, resp biofire negative, pt grossly asymptomatic from this standpoint Continue with IV Zosyn, Vancomycin added given the severity of her infection, persistent pain and for empiric MRSA coverage- follow cultures and adjust abx as needed Continue with breast pump use as needed, consider health and safety consultant services upon discharge Continue to monitor Hypophosphatemia replete as needed Hypertensive urgency Present on admission History of hypertension currently not on maintenance meds Likely chronic BP elevation given biatrial enlargement on EKG IV Lopressor 1 dose on admission Resume previous labetalol Rx for BP control if with persistent BP elevation Hyperglycemia History of gestational DM as per records hbga1c 5.4, normal Diet: HH DVT prophylaxis: Lovenox subcu Full code Dispo: Home once medically stable Admission and Anticipated Discharge Date Admission Date: May 23, 2024 Subjective pt was seen laying bed States no more fevers or chills but still having right breast pain Per nursing was able to get the breast pump from the 4th floor and she was able to pump States her will be in later with the baby Was hoping to be able to go home today. Review of Systems Review of Systems: All systems reviewed & are unremarkable except as noted in Subjective Physical Exam Physical Exam: General: Alert, oriented. No acute distress Psych: Appropriate mood and affect HEENT: NC/AT Chest:right breast tender in LLQ CV: RRR Resp: Breath sounds clear bilaterally, no increased effort of breathing Abdomen: Soft, nontender Extremities: No edema in lower extremities bilaterally. Results & Data Results & Data Vital Signs (Past 12 Hours) Vital Signs Temp Pulse Pulse Pulse Resp BP BP 05/23/24 08:14 113 H 05/23/24 07:54 37.2 C 107 H 20 155/110 H 05/23/24 06:23 93 H 151/85 H 05/23/24 06:08 05/23/24 06:08 37.4 C 124 H 18 170/99 H 05/23/24 05:57 124 H 170/99 H 05/23/24 05:14 114 H 28 H 168/107 H 05/23/24 05:03 37.6 C H 05/23/24 03:17 116 H 05/23/24 03:10 38.6 C H 119 H 22 148/83 H 05/23/24 03:08 116 H 18 148/83 H 05/23/24 02:16 38.3 C H 05/23/24 01:33 120 H 26 H 182/105 H 05/23/24 01:24 119 H 24 181/109 H 05/23/24 01:21 39.4 C H 05/23/24 01:15 118 H 05/23/24 00:35 119 H 22 176/104 H Pulse Ox O2 Del Method 05/23/24 08:14 05/23/24 07:54 98 Room Air 05/23/24 06:23 05/23/24 06:08 Room Air 05/23/24 06:08 97 Room Air 05/23/24 05:57 05/23/24 05:14 99 05/23/24 05:03 05/23/24 03:17 05/23/24 03:10 96 Room Air 05/23/24 03:08 97 Room Air 05/23/24 02:16 05/23/24 01:33 97 05/23/24 01:24 98 05/23/24 01:21 05/23/24 01:15 05/23/24 00:35 98 Diagnostic Findings Chest X-Ray 05/23/24 00:45 EXAM: XR chest 1V portable CLINICAL HISTORY: Chest pain, nonspecific TECHNIQUE: An X-ray image of the chest is obtained in AP projection. COMPARISON: 09/13/2022 FINDINGS: Pulmonary Parenchyma: Prominent central bronchovascular markings with mild peribronchial thickening. Faint lower zones opacities are seen more on the left, which is likely due to overlying soft tissue shadows. No pulmonary consolidation or collapse. No evidence of significant pleural effusion or thickening. Heart and Mediastinum: Heart size and shape are normal. No mediastinal widening or masses. Bony Thorax: The bony thorax appears intact without fractures or deformities. Soft Tissues: Soft tissues overlying the chest wall are unremarkable. IMPRESSION: 1. No pulmonary consolidation or collapse. (Unchanged) 2. Prominent central bronchovascular markings with peribronchial thickening are more conspicuous in the present study. Clinical correlation is advised to assess for bronchitis/pulmonary congestion. Electronically signed by Emilie Mcclellan 05-23-2024 01:39 AM Breast Ultrasound 05/23/24 02:01 EXAM: US breast RT limited CLINICAL HISTORY: R breast pain; ; r/o abscess TECHNIQUE: Multiple grayscale and doppler ultrasound images of right breast were obtained. COMPARISON: none FINDINGS: Breast Tissue: The breast tissue shows diffuse hyperechoic breast parenchyma with dilated lactiferous ducts, no fluid collection noted at the region of interest No evidence of suspicious masses or lesions. Masses: No discrete masses identified. Cysts: No simple or complex cysts identified. Ducts: Mildly dilated retro areolar ducts Skin and Nipple: Normal appearance of the skin and nipple. No thickening or retraction. IMPRESSION: 1. Right breast accepted lactational changes 2. No evidence of suspicious masses, cysts, or significant abnormalities. Recommendation : A screening mammogram is recommended at the age of 40 or sooner if clinically indicated. BI-RADS Category 2: Benign findings. DISCLAIMER:A breast ultrasound can miss masses and should not be relied upon solely to make clinical decisions without an accurate physical examination and mammography if needed. A negative breast ultrasound does not exclude a malignancy and further referral to a breast center is recommended. Electronically signed by Emilie Mcclellan 05-23-2024 04:35 AM
[2024-05-23] MEDS ORDERED: VANCOMYCIN CONSULT ACTIVE PRN (14:47)
[2024-05-23] MEDS ORDERED: VANCOMYCIN HCL 1,500 MG in SODIUM CHLORIDE 0.9% 500 ML IV SCH (15:00)
--- NOTE | 2024-05-23 15:20 | Pharmacy Report ---
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 Pertinent microbiologic data includes: blood cultures x 2 pending, urine culture pending. Patient is post delivery in January 2024. Febrile on presentation (Tmax 39.4 C) w/ leukocytosis (13 K). SCr appears to be slightly above baseline at this time, will follow. Day # 1 of antimicrobial therapy. Plan Vancomycin * Loading dose: 2250 mg IV x 1 * Maintenance dose: 1250 mg IV every 12 hours * Regimen is predicted to achieve target AUC/DANIEL of 400-600 mg/L.hr * Will order level once maintenance regimen at steady-state Pharmacy will continue to follow and will adjust dose/frequency as necessary. Thank you. Pharmacy has transitioned to AUC monitoring for vancomycin. AUC/DANIEL is the preferred PK/PD target and is associated with decreased risk of nephrotoxicity compared to traditional trough targets.
[2024-05-23] MEDS: VANCOMYCIN HCL 2,250 MG in SODIUM CHLORIDE 0.9% 500 ML IV ONE (15:41)
[2024-05-23] MEDS: diphenhydrAMINE 50 MG/ML VIAL IV STA (17:26)
[2024-05-23] MEDS: LABETALOL HCL 100 MG TAB PO SCH (20:27)
[2024-05-24] MEDS ORDERED: VANCOMYCIN HCL 1,250 MG in SODIUM CHLORIDE 0.9% 250 ML IV SCH (04:00)
[2024-05-24 06:42] LABS: Basophils # (auto) 0.04 K/uL (0.00-0.20); Basophils % (auto) 0.4 %; Eosinophils # (auto) 0.22 K/uL (0.00-0.50); Eosinophils % (auto) 2.2 %; Hematocrit (blood only) 40.1 % (37.0-47.0); Hemoglobin 13.3 g/dl (12.0-16.0); Immature Granulocytes # (auto) 0.03 K/uL (0.01-0.20); Immature Granulocytes % (auto) 0.3 %; Lymphocytes # (auto) 2.57 K/uL (1.20-3.40); Lymphocytes % (auto) 25.3 %; Mean Corpuscular Hemoglobin 28.5 pg (25.0-34.0); Mean Corpuscular Hgb Conc 33.2 g/dL (32.0-36.0); Mean Corpuscular Volume 86.1 fL (80.0-100.0); Mean Platelet Volume 9.6 fL (9.4-12.4); Monocytes # (auto) 0.95 K/uL (0.11-0.59); Monocytes % (auto) 9.4 %; Neutrophils # (auto) 6.33 K/uL (1.40-6.50); Neutrophils % (auto) 62.4 %; Platelet Count 286 K/uL (130-400); RDW Coefficient of Variation 14.6 % (11.5-14.5); RDW Standard Deviation 46.2 fL (36.4-46.3); Red Blood Count 4.66 M/uL (4.20-5.40); White Blood Count 10.14 K/ul (4.8-10.8)
[2024-05-24 06:55] LABS: BUN Creatinine Ratio 12.3 (10-20); Calcium 9.2 mg/dl (8.6-10.3); Creatinine Clr Calc Pharmacy 119.2 ml/min; Phosphorus 3.2 mg/dl (2.5-4.9); Potassium 3.6 mmol/L (3.5-5.1)
[2024-05-24 07:44] VITALS: RESP 15
--- NOTE | 2024-05-24 11:38 | Discharge Summary ---
Discharge Summary Date of Service May 24, 2024 Principal Dx & Hospital Course #1 = Principal Diagnosis (1) Sepsis: Plan Pt is a 29yo [id number] PMHx significant for recent delivery in Jan 2024 with course complicated by gestational DM and hypertension presenting with sepsis in the setting of mastitis and a possible UTI. Lactational Mastitis Possible UTI Possible bronchitis Pt 4 month old baby at home 3 day hx of right breast pain and soreness [employer] Recent hospital admissions for delivery and HTN Tachycardic with leukocytosis and fevers on admission UA suggestive of infection Urine culture with pinpoint growth per lab at the time of discharge Blood Cx x 2 sets NGTD Chest XRAY noting possible bronchitis, respiratory biofire negative, pt grossly asymptomatic from this standpoint Treated with IV Zosyn Given the severity of her infection, persistent pain, recent hospitalizations, IV Vancomycin was added for empiric MRSA coverage. She developed a rash and itching a few hours after the vancomycin dose and that was discontinued. On the day of discharge, pt's leukocytosis, fevers and tachycardia had resolved. She noted improvement in her symptoms, though the breast pain had not completely gone away. Given concern for MRSA and the severity of her infection, pt discharged with po Bactrim DS for an additional 10 days with a probiotic. She noted that she would "pump and dump" or not breastfeed while on the antibiotics (though Bactrim can be safely used in mothers babies >1 month) Continue with breast pump use as needed, consider senior product consultant services upon discharge Close PCP follow up as well, pt scheduled with [facility] pcp on discharge. Hypophosphatemia replete as needed PCP followup for continued electrolyte monitoring Hypertensive urgency Present on admission History of hypertension currently not on maintenance meds Likely chronic BP elevation IV Lopressor 1 dose on admission Resumed previous labetalol Rx for BP control given persistent BP elevation as high as 182/105 Discharged with a new labetalol prescription, 100mg BID but will need close PCP follow up for continued BP monitoring and med adjustment as needed Hyperglycemia History of gestational DM as per records hbga1c was normal at 5.4 Notes For Next Care Provider PCP followup for continued electrolyte monitoring Discharged with a new labetalol prescription for HTN, 100mg BID but will need close PCP follow up for continued BP monitoring and med adjustment as needed Medication Changes From Visit Bactrim DS x 10 more days to include MRSA coverage Probiotic Labetalol 100mg BID Admission HPI Per Admitting Provider History obtained from patient, family, and records. Medical history significant for hypertension, gestational DM. Last confinement January 2024 under [employer] service for hypertension. Patient discharged on labetalol and Procardia Rx which eventually were stopped outpatient. Few days history of right-sided breast pain associated with sweats and chills. Denies cough, SOB, abdominal pain, diarrhea, dysuria symptoms. IV Zosyn administered at the ER. Highest SBP of 180s documented at the ER. 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 No acute distress Psych: Appropriate mood and affect HEENT: NC/AT Chest:right breast tender in LLQ CV: RRR Resp: Breath sounds clear bilaterally, no increased effort of breathing Abdomen: Soft, nontender Extremities: No edema in lower extremities bilaterally. Updated Medication List Medication Instructions Recorded Confirmed Type vit no.95-ferrous 1 tab PO DAILY 07/08/23 05/23/24 History fumarate 28 mg-folic acid 800 mcg tablet () Saccharomyces boulardii 250 mg 250 mg PO BID #60 caps 05/24/24 Rx capsule (Florastor) labetalol 100 mg tablet 100 mg PO BID #60 tabs 05/24/24 Rx sulfamethoxazole 800 1 tab PO BID #20 tabs 05/24/24 Rx mg-trimethoprim 160 mg tablet (Bactrim DS) Hospital Stay Data Consultations 05/23/24 03:57 ED Decision to Admit Stat Diagnostic Imagining Performed 05/23/24 02:01 US breast RT limited Stat Chest X-Ray 05/23/24 00:45 EXAM: XR chest 1V portable CLINICAL HISTORY: Chest pain, nonspecific TECHNIQUE: An X-ray image of the chest is obtained in AP projection. COMPARISON: 09/13/2022 FINDINGS: Pulmonary Parenchyma: Prominent central bronchovascular markings with mild peribronchial thickening. Faint lower zones opacities are seen more on the left, which is likely due to overlying soft tissue shadows. No pulmonary consolidation or collapse. No evidence of significant pleural effusion or thickening. Heart and Mediastinum: Heart size and shape are normal. No mediastinal widening or masses. Bony Thorax: The bony thorax appears intact without fractures or deformities. Soft Tissues: Soft tissues overlying the chest wall are unremarkable. IMPRESSION: 1. No pulmonary consolidation or collapse. (Unchanged) 2. Prominent central bronchovascular markings with peribronchial thickening are more conspicuous in the present study. Clinical correlation is advised to assess for bronchitis/pulmonary congestion. Electronically signed by Emilie Mcclellan 05-23-2024 01:39 AM Breast Ultrasound 05/23/24 02:01 EXAM: US breast RT limited CLINICAL HISTORY: R breast pain; ; r/o abscess TECHNIQUE: Multiple grayscale and doppler ultrasound images of right breast were obtained. COMPARISON: none FINDINGS: Breast Tissue: The breast tissue shows diffuse hyperechoic breast parenchyma with dilated lactiferous ducts, no fluid collection noted at the region of interest No evidence of suspicious masses or lesions. Masses: No discrete masses identified. Cysts: No simple or complex cysts identified. Ducts: Mildly dilated retro areolar ducts Skin and Nipple: Normal appearance of the skin and nipple. No thickening or retraction. IMPRESSION: 1. Right breast accepted lactational changes 2. No evidence of suspicious masses, cysts, or significant abnormalities. Recommendation : A screening mammogram is recommended at the age of 40 or sooner if clinically indicated. BI-RADS Category 2: Benign findings. DISCLAIMER:A breast ultrasound can miss masses and should not be relied upon solely to make clinical decisions without an accurate physical examination and mammography if needed. A negative breast ultrasound does not exclude a malignancy and further referral to a breast center is recommended. Electronically signed by Emilie Mcclellan 05-23-2024 04:35 AM Discharge Instructions Given to Patient (Per Discharging Provider) Kaleigh, You were admitted and treated for sepsis and lactational mastitis. We treated you with IV antibiotics and we are discharging you home with an add itional 10 days of the oral antibiotic Bactrim along with a probiotic to take only while on the antibiotics. Please take it as prescribed. Please continue to "pump and dump" as you stated while on the antibiotics. We re-started your labetalol and you will need close followup with your primary care provider to determine whether you need to continue with this medication. Again, please keep close follow up with your primary care provider after discharge. Please do not hesitate to come back to the emergency room if your symptoms worsen or return. It was a pleasure taking care of you while you were here. Total Time Total Time Spent Total Time Spent (In Minutes): 60
[2024-05-24 11:57] VITALS: BP 126/74; PULSE 73; TEMP 97.5; O2SAT 96
== END 2024-05-24 16:00 | disposition home or self-care (01) | DRG 872 ==
LOC: ED 00:30 → 2N 04:14